=== PATIENT | male | born 1950 | race Caucasian/White ===

== ENCOUNTER → 2020-09-17 09:13 | Outpatient (CLI) | payer MEDICARE, SELFPAY ==
--- NOTE | ~2020-09-17 | MR_ITS ---
EXAMINATION: MR lumbar spine wo con EXAM DATE: 09/17/2020 10:11 INDICATION: RLE pain lbp right leg pain to foot w/ toe numbness x8mos, no trauma . Low back pain. TECHNIQUE: Multi-sequential, multiplanar MR images of the lumbar spine were obtained without contrast . Sagittal T1, T2, T2 fat saturation images. Axial T2 weighted images. There is no prior study for comparison. FINDINGS: Bilateral fluid signal intensity renal lesions, imaged portions are consistent with cysts. The conus medullaris terminates at the T12-L1 level and has normal signal intensity and morphology. Mild to moderate disc disease L2-L5, mild at the other lumbar levels. The vertebral bodies are aligne d in the AP dimension. There are no suspicious marrow signal abnormalities. Paraspinal soft tissue is unremarkable. Level by level evaluation: T12-L1: There is a mild diffuse disc bulge superimposed tiny right central extrusion, inferior migrat ion Facet arthropathy: Mild. Neural foraminal stenosis: No stenosis. Central canal stenosis: Minimal. L1-L2: There is a mild diffuse disc bulge. Facet arthropathy: Mild to moderate. Neural foraminal stenosis: Mild right. Central canal stenosis: No stenosis. L2-L3: There is a mild to moderate diffuse disc bulge. Facet arthropathy: Moderate to severe. Ligamentum flavum enlargement. Neural foraminal stenosis: Mild to moderate bilateral. Central canal stenosis: Mild to moderate. L3-L4: There is a moderate diffuse disc bulge. Facet arthropathy: Moderate to severe . Ligamentum flavum enlargement . Neural foraminal stenosis: Moderate right, mild to moderate left. Central canal stenosis: Moderate. L4-L5: There is a moderate diffuse disc bulge. Facet arthropathy: Severe . Ligamentum flavum enlargement . Neural foraminal stenosis: Moderate bilateral. Central canal stenosis: Severe. L5-S1: There is a mild to moderate diffuse disc bulge. Facet arthropathy: Severe. Neural foraminal stenosis: Mild to moderate bilateral. Central canal stenosis: Mild to moderate. IMPRESSION: 1. L4-5 severe central canal stenosis. 2. Less spondylosis other levels. Reviewed, dictated and finalized at location A.
== END ==
PROVIDERS: PCP Family Medicine Adolescent Medicine
DX: M48.062 Spinal stenosis, lumbar region with neurogenic claudication (principal); M47.816 Spondylosis without myelopathy or radiculopathy, lumbar region
CPT/HCPCS: 72148

== ENCOUNTER 2021-04-16 04:50 | Observation (INO) | payer MEDICARE, SELFPAY ==
[2021-04-16] VITALS (24 sets, daily range): BP systolic 131–157; BP diastolic 57–89; PULSE 53–86; RESP 14–25; TEMP 35.9–36.7; O2SAT 94–100; BMI 34.7
--- NOTE | ~2021-04-16 | CT_ITS ---
EXAMINATION: CTA chest PE protocol DATE: 04/16/2021 14:08 CHEMIC MANGLER INDICATION: TECHNIQUE: Computed tomographic angiography (CTA) of the chest was performed with 100 mL Omnipaque-35 0 intravenous contrast. The dose-length product was 1163.27 mGy-cm. Maximum intensity projection 3D-r econstructions of the aorta and other arteries were constructed by the technologist on a separate wor kstation. COMPARISON: None. FINDINGS: Study is mildly limited due to motion artifact and contrast bolus timing. There are filling defects in left upper lobe segmental and subsegmental pulmonary arteries which may represent flow ar tifact or small areas of pulmonary embolism, small thrombus burden. Pulmonary arteries are enlarged c onsistent with pulmonary hypertension. No thoracic lymphadenopathy. No significant pleural or pericar dial effusion. There is bibasilar dependent atelectasis. No thoracic lymphadenopathy. No endobronchia l lesions. IMPRESSION: 1. Filling defects in left upper lobe segmental and subsegmental pulmonary arteries which may represe nt flow artifact or areas of pulmonary embolism, small thrombus burden. Reviewed, dictated and finalized at location A. IC MANGLER IMPRESSION: 1. Filling defects in left upper lobe segmental and subsegmental pulmonary bipin meredith which may represent flow artifact or areas of pulmonary embolism, small th rombus burden.
--- NOTE | ~2021-04-16 | XR_ITS ---
XR chest 1V portable 04/16/2021 05:47 Indication: Chest pain Procedure: AP portable chest Comparison: 08/25/2018 Findings: Left basilar atelectasis/scarring unchanged. Cardiomegaly. No focal pneumonia, edema, signi ficant effusion or pneumothorax. Impression: 1: No acute cardiopulmonary disease. Reviewed, dictated and finalized at location A. IO ENGINEER Impression: 1: No acute cardiopulmonary disease.
--- NOTE | ~2021-04-16 | US_ITS ---
EXAMINATION: US venous doppler [facility] DATE: 04/16/2021 14:56 INDICATION: Shortness of breath and lower limb swelling TECHNIQUE: Grayscale ultrasound images without and with compression and Doppler ultrasound images of the bilateral lower extremity veins were obtained. COMPARISON: None. FINDINGS: The visualized portions of right common femoral vein, profunda (deep) femoral vein, femoral vein, pop liteal vein, posterior tibial veins, peroneal veins, gastrocnemius vein and greater saphenous vein ou tflow are patent. Small Rizvi's cyst at the right popliteal fossa The visualized portions of left common femoral vein, profunda femoral vein, femoral vein, popliteal v ein, posterior tibial veins, peroneal veins, gastrocnemius vein and greater saphenous vein outflow ar e patent. IMPRESSION: 1. No deep venous thrombosis in either lower limb. 2. Small right Rizvi's cyst. Reviewed, dictated and finalized at location A. CULTURAL EQUIPMENT SALESPERSON
--- NOTE | 2021-04-16 04:53 | ECG_ITS ---
Measurements Intervals [place] Rate: 65 P: 25 [place]: 211 QRS: 4 QRSD: 130 T: 90 QT: 406 QTc: 424 Interpretive Statements SINUS RHYTHM WITH FIRST DEGREE AV BLOCK ATRIAL AND VENTRICULAR PREMATURE COMPLEXES INTRAVENTRICULAR CONDUCTION DELAY LEFT VENTRICULAR HYPERTROPHY WITH ST-T CHANGE BORDERLINE R WAVE PROGRESSION, ANTERIOR LEADS INFERIOR INFARCT, AGE INDETERMINATE ST-T WAVE ABNORMALITY IN HIGH LATERAL LEADS- CONSIDER ISCHEMIA ABNORMAL ECG Electronically Signed On 04-16-2021 7:54:32 COFFIN MAKER by Alpesh Pollock D.O.
--- NOTE | 2021-04-16 05:05 | ED.CHESTPAIN ---
HPI - Chest Pain General Chief Complaint: Chest Pain Stated Complaint: chest pain Time Seen by Provider: 04/16/21 04:52 History of Present Illness HPI narrative: Patient is a 70-year-old male who presents the ER with chest pain. Began at 1 AM. Pain is varying between sharp and aching. Left center chest that radiates to left arm. Worse with exertion. Better with rest. No sweats. Has history of previous NE but did not feel like this. He had an angioplasty 1998 and multiple stents a couple years later. 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 Related Data Home Medications Medication Instructions Recorded Confirmed allopurinol 300 mg PO DAILY PRN 04/16/21 amlodipine 5 mg PO DAILY 04/16/21 aspirin [Adult Low Dose Aspirin] 81 mg PO DAILY 04/16/21 fosinopril 40 mg PO DAILY 04/16/21 hydrochlorothiazide 25 mg PO DAILY 04/16/21 meloxicam 15 mg PO DAILY PRN 04/16/21 metformin 500 mg PO BID 04/16/21 nebivolol [Bystolic] 20 mg PO DAILY 04/16/21 pantoprazole 40 mg PO HS 04/16/21 04/16/21 Allergies Allergy/AdvReac Type Severity Reaction Status Date / Time No Known Allergies Allergy Verified 04/16/21 05:11 Review of Systems Review of Systems: All systems reviewed & are unremarkable except as noted in HPI and below Constitutional: Constitutional: Denies chills, Denies fever(s) and Denies weakness ENT: Denies nasal congestion and Denies sore throat Cardiovascular: Cardiovascular: Reports chest pain, Denies rapid heart rate and Reports radiating jaw, neck or arm pain Respiratory: Respiratory: Denies cough, Denies dyspnea and Denies wheezing Gastrointestinal: Gastrointestinal: Denies abdominal pain, Denies diarrhea, Denies nausea and Denies vomiting Musculoskeletal: Musculoskeletal: Denies back pain and Denies muscle cramps [facility] Past Medical History Medical History (Updated 04/16/21 @ 06:46 by Troy Gonzáles MD) Coronary artery disease GERD (gastroesophageal reflux disease) Hyperlipidemia Hypertension Prediabetes Surgical History Surgical History (Updated 04/16/21 @ 05:45 by Troy Gonzáles MD) History of percutaneous coronary intervention Social History Social History (Updated 04/16/21 @ 05:50 by Troy Gonzáles MD) Smoking status: Former smoker Exam Narrative: GENERAL: Well-appearing, Obese, and in no acute distress. HEAD: Normocephalic, atraumatic. ENT: Mucous membranes moist. NECK: Supple. CHEST: Clear to auscultation. No respiratory distress. HEART: Regular rate and rhythm. Normal peripheral pulses. ABDOMEN: Soft, nontender, nondistended. EXTREMITIES: Normal range of motion. No edema. SKIN: Warm, dry, no rash. NEURO: No focal deficits. Alert and oriented x3. PSYCH: Normal mood and affect. Course Reevaluation(s) Reevaluation #1: STEMI activated at 0505. Dr. Bermudez has been contacted and we have discussed the case. He is reviewed the EKG and feels the ST segment changes in leads III/aVF/aVL represent old infarct. Does feel patient will need a cardiac catheterization but does not need to go emergently. He would like patient to have oral aspirin as well as Brilinta and IV heparin. She would like for the patient to have a right-sided EKG performed. He would also like the patient to have some Nitropaste. Date: 04/16/21 Time: 05:15 Vital Signs Vital signs: Vital Signs Temperature 97.2 F L 04/16/21 04:55 Pulse Rate 56 L 04/16/21 04:55 Respiratory Rate 22 H 04/16/21 04:55 Blood Pressure 145/66 H 04/16/21 04:55 Pulse Oximetry 97 04/16/21 04:55 Temperature 97.2 F L 04/16/21 04:55 Pulse Rate 57 L 04/16/21 06:30 Respiratory Rate 20 04/16/21 06:30 Blood Pressure 149/73 H 04/16/21 06:30 Pulse Oximetry 97 04/16/21 06:30 MDM - Chest Pain Lab Data Result diagrams: 04/16/21 05:31 04/16/21 05:31 Labs: Lab Results 04/16/21 04/16/21 04/16/21 Range/Units 05:31 05:31 05:31 WBC 11.0 H (4.5-10.0) K/mm3 RBC 4.6
--- NOTE | 2021-04-16 05:16 | PC.NURSE ---
STEMI alert activated at 05:05. STEMI alert cancelled at 05:12 after with Cardiology consult with EDP. See STEMI form for paper documentation during alert.
[2021-04-16] MEDS: TICAGRELOR 90 MG TABLET 180 MG (05:19)
[2021-04-16] MEDS: SODIUM CHLORIDE 0.9% IV 1,000 ML 999 ML (05:19)
--- NOTE | 2021-04-16 05:24 | ECG_ITS ---
Measurements Intervals [place] Rate: 56 P: 47 [place]: 218 QRS: 8 QRSD: 133 T: 97 QT: 394 QTc: 383 Interpretive Statements SINUS BRADYCARDIA WITH FIRST DEGREE AV BLOCK WITH MARKED RHYTHM IRREGULARITY, POSSIBLE NON-CONDUCTED PAC, SA BLOCK, AV BLOCK OR PAUSE INTRAVENTRICULAR CONDUCTION DELAY LEFT VENTRICULAR HYPERTROPHY WITH ST-T CHANGE ANTEROLATERAL INFARCT, AGE INDETERMINATE INFERIOR INFARCT, AGE INDETERMINATE BASELINE ARTIFACT- I, II, III, AVR, AVL, V1-V2 ABNORMAL ECG Electronically Signed On 04-16-2021 7:56:05 [employer] LIVESTOCK FARM MANAGER by Alpesh Pollock D.O.
[2021-04-16 05:44] LABS: Basophils Absolute Auto 0.1 K/mm3 (0.0-0.1); Basophils Percent Auto 0.5 % (0.2-1.2); Eosinophils Absolute Auto 0.1 K/mm3 (0-0.3); Eosinophils Percent Auto 1.1 % (0-4.4); Hematocrit 43.2 % (42.0-52.0); Immature Granulocyte Absolute 0.04 K/mm3 (0.00-0.031); Immature Granulocyte Percent A 0.4 % (0-0.5); Lymphocytes Absolute Auto 0.91 K/mm3 (0.9-3.2); Lymphocytes Percent Auto 8.3 % (18.3-44.2); Mean Corpuscular HGB Conc 32.4 g/dl (32-36); Mean Corpuscular Hemoglobin 29.9 pg (26-34); Mean Corpuscular Volume 92.3 fl (80-100); Mean Platelet Volume 10.6 fl (7.4-10.4); Monocytes Absolute Auto 0.9 K/mm3 (0.1-0.6); Monocytes Percent Auto 8.4 % (2.6-8.5); Neutrophils Absolute Auto 8.9 K/mm3 (1.3-6.7); Neutrophils Percent Auto 81.3 % (45.5-73.1); Platelet Count Result 183 k/mm3 (150-375); Red Blood Count 4.68 M/mm3 (4.6-6.20); Red Cell Distribution Width 14.1 % (11.5-14.5)
[2021-04-16 05:55] LABS: Alanine Aminotransferase 24 U/L (4-50); Albumin Level 4.3 g/dL (3.5-5.1); Alkaline Phosphatase 50 U/L (38-126); Anion Gap 10 mmol/L (8-16); Aspartate Amino Transferase 31 U/L (17-59); Bilirubin,Total 0.4 mg/dL (0.2-1.3); Blood Urea Nitrogen 18 mg/dL (9-20); Calcium 9.3 mg/dL (8.4-10.2); Carbon Dioxide 27 mmol/L (22-30); Chloride 104 mmol/L (98-107); Cholesterol 121 mg/dL (0-200); Estimated CRCL calculation 91 ml/min; Estimated Glomerular Filt Rate > 60; Glucose 154 mg/dL (65-110); HDL Direct 35 mg/dL; Potassium 3.6 mmol/L (3.4-5.0); Sodium 141 mmol/L (137-145); Triglycerides 108 mg/dL (<150)
[2021-04-16 05:56] LABS: INR 1.1; Prothrombin Time 13.6 Seconds (11.1-14.7)
[2021-04-16 06:06] LABS: LDL Cholesterol Direct 66 mg/dL
[2021-04-16 06:08] LABS: Troponin I 0.017 ng/mL (0.000-0.034)
[2021-04-16] MEDS: HEPARIN SOD/D5W 100 UNITS/ML 25,000 UNITS/250 ML BAG 10 UNITS IV CONT (06:15)
--- NOTE | 2021-04-16 07:10 | PC.NURSE ---
Report taken from BREE Simmons.
[2021-04-16] MEDS: MORPHINE SULFATE (*CRX) 4 MG/ML INJ IV PUSH (08:17)
--- NOTE | 2021-04-16 09:13 | ADMGEN ---
This patient, Deric Buck, was admitted to IMU Room 200-01. Patient/family oriented to hospital policies and general routines including ID bracelet, bed and alarms, visiting hours, pain management, procedures, bathroom and other care routines, personal items, smoking policy, room service/diet, and visiting hours. Information on how to activate the Rapid Response Team has been discussed. Patient/Family are encouraged to report perceived risks to care and to ask questions if they do not understand what they are told or what they should do.
[2021-04-16 09:45] LABS: Troponin I 0.019 ng/mL (0.000-0.034)
--- NOTE | 2021-04-16 10:12 | PM.IMHP ---
H&P: HPI History of Present Illness Date/Time: 04/16/21 10:12 Chief Complaint: Chest pain Narrative: 70 to years old male with history of coronary artery disease, hypertension, [id number] diabetes and multiple stent placement in the past was admitted through the emergency room with complaints of having chest pain going on for the last few hours. Pain started at home while walking, it was in the left side of the chest dull in nature and non radiating. Patient pain did not get better so he decided come to the emergency room. In the emergency room patient was started on IV heparin with some relief in chest pain. No shortness of breath. No abdominal pain, nausea, vomiting. No fever. Review of Systems Review of Systems: All systems reviewed & are unremarkable except as noted in HPI and below (the history and physical examination.) [facility] Past Medical History Medical History (Updated 04/16/21 @ 10:17 by Des Diallo MD) Coronary artery disease GERD (gastroesophageal reflux disease) Hyperlipidemia Hypertension Prediabetes Surgical History Surgical History History of percutaneous coronary intervention Social History Social History Smoking packs per day: 1.5 Smoking cigarettes per day: 30.0 Years smoked: 44 Smoking pack-years: 66.00 Smoking status: Former smoker Smokeless tobacco user: chewing tobacco Alcohol intake: current Drinks per week: 14 Substance use: current Substance use type: marijuana Other substance usage details: marijuana gummy Last use: 04/14/21 Spiritual care concerns: No Meds Home Medications and Allergies Home Medications Medication Instructions Recorded Confirmed Type allopurinol 300 mg PO DAILY PRN 04/16/21 04/16/21 History amlodipine 5 mg PO DAILY 04/16/21 04/16/21 History aspirin [Adult Low Dose Aspirin] 81 mg PO DAILY 04/16/21 04/16/21 History fosinopril 40 mg PO DAILY 04/16/21 04/16/21 History hydrochlorothiazide 25 mg PO DAILY 04/16/21 04/16/21 History meloxicam 15 mg PO DAILY PRN 04/16/21 04/16/21 History metformin 500 mg PO BID 04/16/21 04/16/21 History nebivolol [Bystolic] 20 mg PO DAILY 04/16/21 04/16/21 History pantoprazole 40 mg PO HS 04/16/21 04/16/21 History Allergies Allergy/AdvReac Type Severity Reaction Status Date / Time No Known Allergies Allergy Verified 04/16/21 09:26 Vital Signs Vital Signs - 24 hr 04/16/21 04:55 04/16/21 05:14 04/16/21 05:15 Temperature 36.2 C L Pulse Rate 56 L 65 Respiratory Rate 22 H 18 Blood Pressure 145/66 H 153/78 H Pulse Oximetry 97 96 98 04/16/21 06:30 04/16/21 07:00 04/16/21 07:01 Temperature Pulse Rate 57 L 64 64 Respiratory Rate 20 21 H 24 H Blood Pressure 149/73 H 156/68 H Pulse Oximetry 97 97 04/16/21 07:09 04/16/21 07:15 04/16/21 07:30 Temperature Pulse Rate 53 L 66 67 Respiratory Rate 16 18 Blood Pressure 156/68 H Pulse Oximetry 98 99 97 04/16/21 07:34 04/16/21 07:45 04/16/21 08:00 Temperature Pulse Rate 83 65 66 Respiratory Rate 23 H 25 H Blood Pressure 157/76 H Pulse Oximetry 97 97 97 04/16/21 08:16 04/16/21 08:30 04/16/21 09:10 Temperature Pulse Rate 86 63 Respiratory Rate 18 16 Blood Pressure 144/89 H Pulse Oximetry 98 95 95 04/16/21 09:58 Temperature 36.7 C Pulse Rate 65 Respiratory Rate 14 Blood Pressure 153/75 H Pulse Oximetry 97 Exam Narrative: GENERAL: Well-appearing, Obese, and in no acute distress. HEAD: Normocephalic, atraumatic. ENT: Mucous membranes moist. NECK: Supple. CHEST: Clear to auscultation. No respiratory distress. HEART: Regular rate and rhythm. Normal peripheral pulses. ABDOMEN: Soft, nontender, nondistended. EXTREMITIES: Normal range of motion. No edema. SKIN: Warm, dry, no rash. NEURO: No focal deficits. Alert and oriented x3. PSYCH: Normal mood and affect. H&P: Results Labs
[2021-04-16 10:27] LABS: SARS-CoV-2 RNA PCR Negative
[2021-04-16 11:17] LABS: Partial Thromboplastin Time 39.8 SECONDS (22.3-36.8)
[2021-04-16 11:30] LABS: Troponin I 0.016 ng/mL (0.000-0.034)
[2021-04-16 12:17] LABS: Glucose Point of Care 120 mg/dl (65-105)
[2021-04-16] MEDS: HEPARIN SODIUM 5,000 UNITS/ML VIAL 4000 UNITS IV PUSH (12:18)
--- NOTE | 2021-04-16 12:30 | PM.CNCAR ---
Assessment and Plan Assessment and plan (1) Chest pain: Code(s): R07.9 - Chest pain, unspecified Status: Acute Assessment and Plan: His chest pain is a bit vague to me. He describes the symptoms as predominantly worse with breathing. In my opinion, it sounds more pleuritic in nature associated with shortness of breath rather than anginal albeit not completely excluded to this point. He admits he has not been very active as of weight since his surgery. He also does not have a lot of energy whenever he tries to do things and he is short of breath with activity. Will order CT scan of his chest with PE protocol. Will also order bilateral lower extremity venous Dopplers as he does have lower extremity swelling also. (2) CAD (coronary artery disease): Code(s): I25.10 - Atherosclerotic heart disease of [place] coronary artery without angina pectoris Status: Acute Assessment and Plan: Does have chest pain but is chest pain is atypical. He is ruled out for myocardial infarction. EKG shows no significant changes from previous. Heparin drip per protocol to be initiated. A 2D echocardiogram with Doppler will also be ordered and reviewed. Continue aspirin 81 mg p.o. daily, fosinopril 40 mg daily, hydrochlorothiazide 25 mg p.o. daily and nebivolol 20 mg daily. Continue on the results of the CT scan, further ischemic workup to be considered. (3) Hypertension associated with diabetes: Code(s): E11.59 - Type 2 diabetes mellitus with other circulatory complications; I15.2 - Hypertension secondary to endocrine disorders Status: Acute Assessment and Plan: Continue above medications (4) Hyperlipidemia associated with type 2 diabetes mellitus: Code(s): E11.69 - Type 2 diabetes mellitus with other specified complication; E78.5 - Hyperlipidemia, unspecified Status: Acute Assessment and Plan: Will start rosuvastatin 40 mg daily (5) Former tobacco use: Code(s): Z87.891 - Personal history of nicotine dependence Status: Acute History of Present Illness History of Present Illness Consult date/time: 04/16/21 12:30 Requesting physician: Troy Gonzáles MD Consult reason: chest pain Reason For Visit: chest pain Narrative: Date of service 04/16/2021: Reason consultation: Chest pain Requesting provider: Dr. Gonzáles History: Patient is 70-year-old male who is a patient of mine who has a remote history of inferior myocardial infarction with stenting to the PDA. Repeat stenting to the RCA was performed in 2005.. Echocardiogram in 2019 showed inferolateral wall motion abnormalities. EF 60-65%. No significant valvular problems. Occasional PVCs were noted. Came to hospital this morning because of chest pain. Patient woke up to go the bathroom and noticed some pain in his left shoulder area. He also had some pain into the back as well as some anterior chest pain. He has difficulty describing it but the pain in the back was more sharp. The anterior chest pain is more doll. Symptoms and pain in particular are worse by breathing. He also feels like he is short of breath and then has to take some deep breaths in order to catch at. He did become concerned though as his symptoms persisted throughout the night. He woke up and did take a nitroglycerin tablet which did not resolve his symptoms. His nitroglycerin though may have been old. He has no exertional symptoms at present nor does he states that his symptoms are worsened last night by walking around. He does feel some dizziness upon standing at times. He has no palpitations, syncope, paroxysmal nocturnal dyspnea, orthopnea or unusual edema. He came to the hospital and his EKG shows inferior infarction which is old and some ST abnormalities likely from old infarction. Troponins are negative x3. He also has anterolateral Q-waves consistent with [place] also. At present, he is on a heparin drip and is still having some a shortness
[2021-04-16 16:38] LABS: Glucose Point of Care 132 mg/dl (65-105)
[2021-04-16 17:54] LABS: Partial Thromboplastin Time 69.2 SECONDS (22.3-36.8)
[2021-04-16] MEDS: HEPARIN SODIUM 5,000 UNITS/ML VIAL 3500 UNITS IV PUSH (18:54)
[2021-04-16] MEDS: PANTOPRAZOLE 40 MG TABLET PO (20:20)
[2021-04-16 20:39] LABS: Glucose Point of Care 157 mg/dl (65-105)
[2021-04-17] VITALS (10 sets, daily range): BP systolic 120–143; BP diastolic 64–72; PULSE 52–68; RESP 18–20; TEMP 36.4–36.5; O2SAT 93–100
--- NOTE | 2021-04-17 | ECHO_ITS ---
Patient Info Name: Deric Buck Age: 70 years : 1950 Gender: Male Ht: 70 in Wt: 245 lbs BSA: 2.38 m2 HR: 60 bpm BP: 143 / 71 mmHg Heart Rhythm: Sinus Rhythm Technical Quality: Fair Exam Date: 04/17/2021 7:54 AM Exam Location: [facility] Patient Status: Inpatient Admit Date: 04/16/2021 Staff Ordering Physician: Royce Faith MD Store Director: Roxie Feng RDCS Attending Provider: Jerri Perez DO Referring Physician: Marcell JACOBSON; Exam Type: CA echo doppler color flow Study Info Indications - chest pain, sob, cad Complete two-dimensional, color flow and Doppler transthoracic echocardiogram is performed. Summary 1. Complete two-dimensional, color flow and Doppler transthoracic echocardiogram is performed. 2. Left ventricular systolic function is mildly reduced, estimated at 45-50%. 3. The left ventricular diastolic function is grade I diastolic dysfunction. 4. The infero posterior segments appear hypodynamic. 5. Left atrial chamber dimension is moderately enlarged. 6. The aortic valve is normal. 7. The mitral valve has normal leaflets. Left Ventricle Left ventricular chamber dimension is normal. Left ventricular systolic function is mildly reduced, estimated at 45-50%. The left ventricular diastolic function is grade I diastolic dysfunction. The infero posterior segments appear hypodynamic. Right Ventricle Right ventricular chamber dimension is normal. Right ventricular systolic function is normal. Left Atria Left atrial chamber dimension is moderately enlarged. Right Atria Right atrial chamber dimension is normal. Aortic Valve The aortic valve is normal. Pulmonic Valve The pulmonic valve is not well visualized. Mitral Valve The mitral valve has normal leaflets. Tricuspid Valve The tricuspid valve leaflets are normal. There is trace tricuspid valve regurgitation. Pericardium/Pleural The pericardium appears normal. Aorta The aortic root size at the sinus of Valsalva is normal. Left Ventricular Outflow Tract Name Value Normal LVOT 2D LVOT Diameter 2.1 cm LVOT Doppler LVOT Peak Gradient 4 mmHg LVOT Mean Gradient 2 mmHg LVOT VTI 19 cm LVOT VTI/AV VTI Ratio 0.6 LVOT Stroke Volume 67 ml LVOT CO 3.9 l/min LVOT CI 1.6 l/min/m2 Pulmonic Valve Name Value Normal RVOT Doppler RVOT Peak Gradient 3 mmHg PV Doppler PV Peak Gradient 6 mmHg Mitral Valve Name
[2021-04-17] MEDS: HEPARIN SOD/D5W 100 UNITS/ML 25,000 UNITS/250 ML BAG 16 UNITS IV CONT (01:01)
[2021-04-17 01:12] LABS: Partial Thromboplastin Time 96.5 SECONDS (22.3-36.8)
[2021-04-17 07:24] LABS: Basophils Percent Auto 0.2 % (0.2-1.2); Eosinophils Percent Auto 0.4 % (0-4.4); Hematocrit 39.8 % (42.0-52.0); Hemoglobin 13.2 g/dL (14.0-18.0); Immature Granulocyte Absolute 0.05 K/mm3 (0.00-0.031); Immature Granulocyte Percent A 0.5 % (0-0.5); Lymphocytes Absolute Auto 1.01 K/mm3 (0.9-3.2); Lymphocytes Percent Auto 10.7 % (18.3-44.2); Mean Corpuscular HGB Conc 33.2 g/dl (32-36); Mean Corpuscular Hemoglobin 30.1 pg (26-34); Mean Corpuscular Volume 90.9 fl (80-100); Mean Platelet Volume 10.3 fl (7.4-10.4); Monocytes Absolute Auto 1.1 K/mm3 (0.1-0.6); Monocytes Percent Auto 11.2 % (2.6-8.5); Neutrophils Absolute Auto 7.3 K/mm3 (1.3-6.7); Platelet Count Result 165 k/mm3 (150-375); Red Blood Count 4.38 M/mm3 (4.6-6.20); Red Cell Distribution Width 14.5 % (11.5-14.5); White Blood Count 9.5 K/mm3 (4.5-10.0)
[2021-04-17 07:35] LABS: Cholesterol 116 mg/dL (0-200); HDL Direct 36 mg/dL; Triglycerides 81 mg/dL (<150)
[2021-04-17 07:43] LABS: Partial Thromboplastin Time 74.3 SECONDS (22.3-36.8)
[2021-04-17 07:45] LABS: LDL Cholesterol Direct 59 mg/dL
[2021-04-17 07:48] LABS: Troponin I 0.029 ng/mL (0.000-0.034)
[2021-04-17 08:02] LABS: Hemoglobin A1C 6.1 % (<5.7)
[2021-04-17] MEDS: NEBIVOLOL HCL 5 MG TABLET 20 MG PO (08:53)
[2021-04-17] MEDS: ROSUVASTATIN 10 MG TABLET 40 MG PO (08:54)
[2021-04-17] MEDS: lisinopriL 20 MG TABLET 40 MG PO (08:54)
[2021-04-17] MEDS: ASPIRIN 81 MG ENTERIC TABLET PO (08:54)
[2021-04-17] MEDS: hydroCHLOROthiazide 25 MG TABLET PO (08:55)
[2021-04-17] MEDS: amLODIPine BESYLATE 5 MG TABLET PO (08:55)
[2021-04-17 09:24] LABS: Glucose Point of Care 144 mg/dl (65-105)
--- NOTE | 2021-04-17 11:27 | PM.PNCARD ---
Progress Note: A&P Assessment and Plan (1) Chest pain: Code(s): R07.9 - Chest pain, unspecified Status: Acute Assessment and Plan: Chest pain he was describing seemed mostly pleuritic in nature. He was found to have a sub segmental pulmonary pulmonary embolism. He was started on heparin, can transition to DOAC. Generally not experiencing any chest pain but does say that if he breathes very deeply he does have some discomfort. (2) CAD (coronary artery disease): Code(s): I25.10 - Atherosclerotic heart disease of [place] coronary artery without angina pectoris Status: Acute Assessment and Plan: Does have chest pain but is chest pain is atypical. He is ruled out for myocardial infarction. EKG shows no significant changes from previous. Heparin drip per protocol to be initiated. A 2D echocardiogram with Doppler will also be ordered and reviewed. Continue aspirin 81 mg p.o. daily, fosinopril 40 mg daily, hydrochlorothiazide 25 mg p.o. daily and nebivolol 20 mg daily. No indication for ischemic workup at this point in time. Can be considered if he develops recurrent chest pain. (3) Hypertension associated with diabetes: Code(s): E11.59 - Type 2 diabetes mellitus with other circulatory complications; I15.2 - Hypertension secondary to endocrine disorders Status: Acute Assessment and Plan: Continue above medications (4) Hyperlipidemia associated with type 2 diabetes mellitus: Code(s): E11.69 - Type 2 diabetes mellitus with other specified complication; E78.5 - Hyperlipidemia, unspecified Status: Acute Assessment and Plan: On a statin (5) Former tobacco use: Code(s): Z87.891 - Personal history of nicotine dependence Status: Acute Subjective Date/time seen: 04/17/21 11:27 cardiology follow-up for chest pain Patient is feeling better today. Denies any shortness of breath or chest pain. Review of Systems Review of Systems: All systems reviewed & are unremarkable except as noted in HPI and below Constitutional: Constitutional: Denies excessive sweating, Denies headache(s) and Denies weakness Eyes: Eyes: Denies blurry vision ENT: Reports Normal hearing present, Denies headache(s) and Denies neck pain Cardiovascular: Cardiovascular: Reports chest pain, Reports leg edema and Reports dyspnea Respiratory: Respiratory: Reports dyspnea Gastrointestinal: Gastrointestinal: Denies abdominal pain Genitourinary: Genitourinary: Denies dysuria Musculoskeletal: Musculoskeletal: Denies back pain and Denies neck pain Integumentary/Breasts: Skin/Breast: Denies dry skin Neurologic: Reports Normal hearing present, Denies confusion, Denies headache(s) and Denies weakness Psychiatric: Psychiatric: Denies anxiety and Denies confusion Endocrine: Endocrine: Denies excessive sweating Hematologic/Lymphatic: Hematologic/Lymphatic: Denies easy bleeding Allergic/Immunologic: Allergic/Immunologic: Denies GI upset with certain foods Exam Narrative: Patient is awake alert oriented. He is comfortable. Const: General: no acute distress and uncomfortable; No confusion Orientation/consciousness: No confusion HENMT: General nose exam: Normal nares present Eyes: Sclera: sclerae normal Neck: Neck: supple and no JVD Chest: Other: No reproducible chest wall pain to palpation Resp: Auscultation: clear to auscultation bilaterally Cardio: Rate: regular rate Rhythm: regular rhythm GI: Auscultation: normal bowel sounds Skin: General skin exam: normal color Neuro: General: No confusion Cranial nerves: Yes Normal hearing present Cognition (Neuro): normal cognition Speech: normal speech Extrem: General: edema (Mild bilateral lower extremity edema right leg greater than left) Psych: Mental Status: mental status grossly normal Objective Data Vital Signs Vital Signs: Vital Signs - 24 hr 04/16/21 12:00 04/16/21 13:45 04/16/21 16:00 Temperature
[2021-04-17 12:41] LABS: Glucose Point of Care 137 mg/dl (65-105)
--- NOTE | 2021-04-17 15:01 | PM.DS ---
DS: Admitting Diagnosis Discharge Date 04/17/2021 Admitting Diagnosis chest pain DS: Discharge Diagnosis Discharge Diagnosis (1) Chest pain: Code(s): R07.9 - Chest pain, unspecified Status: Resolved (2) CAD (coronary artery disease): Code(s): I25.10 - Atherosclerotic heart disease of [place] coronary artery without angina pectoris Status: Acute (3) Type 2 diabetes mellitus: Code(s): E11.9 - Type 2 diabetes mellitus without complications Status: Acute (4) Hypertension: Code(s): I10 - Essential (primary) hypertension Status: Acute (5) Hyperlipidemia: Code(s): E78.5 - Hyperlipidemia, unspecified Status: Deleted DS: Summary Hospital Course Reason for hospitalization: Chief Complaint: Chest pain Narrative: 70 to years old male with history of coronary artery disease, hypertension, [id number] diabetes and multiple stent placement in the past was admitted through the emergency room with complaints of having chest pain going on for the last few hours. Pain started at home while walking, it was in the left side of the chest dull in nature and non radiating. Patient pain did not get better so he decided come to the emergency room. In the emergency room patient was started on IV heparin with some relief in chest pain. No shortness of breath. No abdominal pain, nausea, vomiting. No fever. Hospital Course: patient presented with a chest is found to have a subsegmental pulmonary emboli initially patient was started on heparin, to further evaluate patient had a cardiac echo showed mild to moderate recent systolic dysfunction with ejection fraction of 45% and grade 1 diastolic dysfunction, right ventricle, essentially normal, will discharge the patient on Xarelto, patient will follow-up with primary care as soon as possible Status at Discharge Cognitive/behavioral status at discharge: Time Spent with Patient Time attestation: Total time spent providing and/or coordinating discharge services: Exam Narrative: Patient is comfortable, NAD HEENT: eyes are clear and none icteric LUNGS:CTA HEART: RR S1S2 ABD: BS+, Soft and nontender Lower extremities: no edema SKIN: nonjaundiced Neuro: grossly intact. DS: Data Data Completed and Pending Labs on day of discharge: Labs from last 24 hours 04/17/21 04/17/21 04/17/21 12:01 08:56 07:07 WBC RBC Hgb Hct MCV MCH MCHC RDW Plt Count MPV Immature Gran % (Auto) Neut % (Auto) Lymph % (Auto) [place] % (Auto) Eos % (Auto) Baso % (Auto) Lymph # (Auto) [place] # (Auto) Eos # (Auto) Baso # (Auto) Abs Immat Gran (auto) Absolute Neuts (auto) Absolute Nucleated RBC Nucleated RBC % APTT 74.3 H POC Capillary Glucose 137 H 144 H Hemoglobin A1c Troponin I Triglycerides Cholesterol LDL Cholesterol Direct HDL Direct 04/17/21 04/17/21 04/17/21 07:07 07:07 07:07 WBC 9.5 RBC 4.38 L Hgb 13.2 L Hct 39.8 L MCV 90.9 MCH 30.1 MCHC 33.2 RDW 14.5 Plt Count 165 MPV 10.3 Immature Gran % (Auto) 0.5 Neut % (Auto) 77.0 H Lymph % (Auto) 10.7 L [place] % (Auto) 11.2 H Eos % (Auto) 0.4 Baso % (Auto) 0.2 Lymph # (Auto) 1.01 [place] # (Auto) 1.1 H Eos # (Auto) 0.0 Baso # (Auto) 0.0 Abs Immat Gran (auto) 0.05 H Absolute Neuts (auto) 7.3 H Absolute Nucleated RBC 0.0 Nucleated RBC % 0.0 APTT POC Capillary Glucose Hemoglobin A1c 6.1 H Troponin I 0.029 Triglycerides 81 Cholesterol 116 LDL Cholesterol Direct 59 HDL Direct 36 04/17/21 04/16/21 04/16/21 00:51 19:44 17:32 WBC RBC Hgb Hct MCV MCH MCHC RDW Plt Count MPV Immature Gran % (Auto) Neut % (Auto) Lymph % (Auto) [place] % (Auto) Eos % (Auto) Baso % (Auto) Lymph # (Auto) [place] # (Auto) Eos # (Auto) Baso # (
--- NOTE | 2021-04-17 17:30 | PC.NURSE ---
1730-discharge information explained to pt and . questions answered. 1735-pt discharged in wheelchair with tech. Pt belongings with pt during discharge.
== END 2021-04-17 17:33 | disposition home or self-care (01) ==
LOC: ANHED 06:46 → ANHIMU 04-17 14:16
PROVIDERS: Internal Medicine; Internal Medicine Cardiovascular Disease; Admitting Provider Internal Medicine; Emergency Provider Emergency Medicine; PCP Family Medicine Adolescent Medicine; Visit Provider Family Medicine
DX: R07.9 Chest pain, unspecified (principal); I25.10 Atherosclerotic heart disease of native coronary artery without angina pectoris; I10 Essential (primary) hypertension; I25.2 Old myocardial infarction; E11.9 Type 2 diabetes mellitus without complications; E78.5 Hyperlipidemia, unspecified; K21.9 Gastro-esophageal reflux disease without esophagitis; M71.21 Synovial cyst of popliteal space [Baker], right knee; R60.0 Localized edema; R06.02 Shortness of breath; Z20.822 Contact with and (suspected) exposure to COVID-19; Z95.5 Presence of coronary angioplasty implant and graft; Z87.891 Personal history of nicotine dependence; Z79.82 Long term (current) use of aspirin; Z79.84 Long term (current) use of oral hypoglycemic drugs
CPT/HCPCS: 36415; 71045; 71275; 80053; 80061; 82948; 83036; 84484; 85025; 85610; 85730; 86850; 86900; 86901; 93005; 93306; 93970; 96361; 96365; 96366; 96375; 99285; A9270; C9803; G0378; J1644; J2270; J7030; Q9967; U0003; U0005

== ENCOUNTER 2021-04-23 20:59 | Emergency (ER) | payer MEDICARE, SELFPAY ==
--- NOTE | ~2021-04-23 | CT_ITS ---
EXAMINATION: CT abdomen pelvis wo/w con DATE: 04/24/2021 01:17 INDICATION: Gross hematuria TECHNIQUE: Computed tomography (CT) of the abdomen and pelvis was performed without and with 130 cc O mnipaque 350 intravenous contrast. The dose-length product was 3019.74 mGy-cm. Automated exposure con trol and iterative reconstruction technique were employed. COMPARISON: CT dated 04/23/2021. FINDINGS: Left lower lobe atelectasis. Heart size normal. No significant pleural or pericardial effus ion. The liver, spleen, pancreas, adrenal glands are unremarkable. There are bilateral renal cysts. There are nonobstructing left renal stones. No significant hydronephrosis. Ureters are normal in course and caliber. Prostate gland is enlarged. Gallbladder is present. There is focal scarring in the right ki dney. Nonobstructive bowel gas pattern. No significant vascular abnormality. No lymphadenopathy. Ther e is a left hip arthroplasty. Moderate lumbar spondylosis. IMPRESSION: 1. No acute abdominal abnormality. 2: Nonobstructing left nephrolithiasis. 3: Enlarged prostate gland. Reviewed, dictated and finalized at location A. COUNTER
--- NOTE | ~2021-04-23 | CT_ITS ---
EXAMINATION: CT abdomen pelvis wo con DATE: 04/23/2021 23:42 INDICATION: Hematuria. TECHNIQUE: Computed tomography (CT) of the abdomen and pelvis was performed without intravenous contr ast. The dose-length product was 1538.27 mGy-cm. Automated exposure control and iterative reconstruct ion technique were employed. COMPARISON: CT dated 09/17/2018. FINDINGS: There is lingular and left lower lobe atelectasis. There is atherosclerosis of the aorta an d coronary arteries. No significant pleural or pericardial effusion. There are multiple bilateral low -density lesions in both kidneys, most likely cysts. There are nonobstructing left renal stones. No h ydronephrosis. The liver, spleen, pancreas, adrenal glands are unremarkable. Prostate is enlarged. Gallbladder is pr esent. There is left inguinal hernia containing fat. There is a left hip arthroplasty. Moderate lumba r spondylosis. Nonobstructive bowel gas pattern. Colonic diverticulosis without evidence for divertic ulitis. IMPRESSION: 1. No acute abdominal abnormality. 2: Nonobstructing left nephrolithiasis. Reviewed, dictated and finalized at location A. AGE MAKER
[2021-04-23 21:00] VITALS: BP 151/67; PULSE 102; RESP 16; TEMP 36.2; O2SAT 98
[2021-04-23 21:30] VITALS: BP 123/76; PULSE 58; RESP 18; TEMP 37.2; O2SAT 95
--- NOTE | 2021-04-23 21:30 | ED.MALEGU ---
HPI - Male Genitourinary General Chief complaint: Urogenital-Male Stated complaint: Hematuria, on blood thinners Time Seen by Provider: 04/23/21 21:08 Source: patient, RN notes reviewed and old records reviewed Mode of arrival: ambulatory Limitations: no limitations History of Present Illness HPI Narrative: This a 70 year old male with history of CAD, stent, recent diagnosis of PE on Xarelto who presents for evaluation of blood in your urine. Patient was started on Xarelto 1 week ago for small PE. His reports she noticed that patient urine was pink on Saturday . Earlier today around 11 am she reports his urine was razo yellow, and patient states around 4 pm his urine was red again. Patient denies abdominal pain, back pain, nausea, vomiting fever or chills. He denies any trauma. Denies previous history of hematuria. Related Data Home Medications Medication Instructions Recorded Confirmed allopurinol 300 mg PO DAILY PRN 04/16/21 04/16/21 amlodipine 5 mg PO DAILY 04/16/21 04/16/21 aspirin 81 mg PO DAILY 04/16/21 04/16/21 fosinopril 40 mg PO DAILY 04/16/21 04/16/21 hydrochlorothiazide 25 mg PO DAILY 04/16/21 04/16/21 meloxicam 15 mg PO DAILY PRN 04/16/21 04/16/21 metformin 500 mg PO BID 04/16/21 04/16/21 nebivolol [Bystolic] 20 mg PO DAILY 04/16/21 04/16/21 pantoprazole 40 mg PO HS 04/16/21 04/16/21 Allergies Allergy/AdvReac Type Severity Reaction Status Date / Time No Known Allergies Allergy Verified 04/16/21 09:26 Review of Systems Review of Systems: All systems reviewed & are unremarkable except as noted in HPI and below PMFSH Past Medical History Medical History Coronary artery disease GERD (gastroesophageal reflux disease) Hyperlipidemia Hypertension Prediabetes Surgical History Surgical History History of percutaneous coronary intervention Family History Family History Father Acute myocardial infarction Social History Social History Smoking packs per day: 1.5 Smoking cigarettes per day: 30.0 Years smoked: 44 Smoking pack-years: 66.00 Smoking status: Former smoker Smokeless tobacco user: chewing tobacco Alcohol intake: current Drinks per week: 14 Substance use: current Substance use type: marijuana Other substance usage details: marijuana gummy Last use: 04/14/21 Spiritual care concerns: No Exam Const: General: no acute distress and alert Eyes: EOM: EOMs intact bilaterally Chest: Chest palpation & inspection: normal inspection of the chest Resp: Effort & Inspection: normal respiratory effort and no retractions Auscultation: clear to auscultation bilaterally Cardio: Rate: regular rate Rhythm: regular rhythm Heart sounds: no murmurs GI: GI Palp: Yes Soft to palpation, No Tenderness to palpation present (GI) and No Guarding due to palpation present (GI) Auscultation: normal bowel sounds Back/Spine/Pelvis: Back: no CVA tenderness Skin: General skin exam: normal color Rashes: no rashes Neuro: General: patient oriented x3 and moves all extremities Cranial nerves: Yes Nystagmus not present Psych: Mental Status: mental status grossly normal Affect: normal affect Course Consultations Consultation #1: Patient has been able to urinate without any difficulty. He is not passing clots. He will need to continue his xarelto. Patient was given return precautions and follow up with urology. Placed on antibiotics. Date: 04/24/21 Time: 02:08 Vital Signs Vital signs: Vital Signs Temperature 97.1 F L 04/23/21 21:00 Pulse Rate 102 H 04/23/21 21:00 Respiratory Rate 16 04/23/21 21:00 Blood Pressure 151/67 H 04/23/21 21:00 Pulse Oximetry 98 04/23/21 21:00 Temperature 98.9 F 04/23/21 21:30 Pulse Rate 50 L
[2021-04-23 21:41] LABS: Basophils Absolute Auto 0.1 K/mm3 (0.0-0.1); Basophils Percent Auto 0.8 % (0.2-1.2); Eosinophils Absolute Auto 0.2 K/mm3 (0-0.3); Eosinophils Percent Auto 2.5 % (0-4.4); Hemoglobin 14.5 g/dL (14.0-18.0); Immature Granulocyte Absolute 0.03 K/mm3 (0.00-0.031); Immature Granulocyte Percent A 0.4 % (0-0.5); Lymphocytes Absolute Auto 1.56 K/mm3 (0.9-3.2); Lymphocytes Percent Auto 19.5 % (18.3-44.2); Mean Corpuscular HGB Conc 32.2 g/dl (32-36); Mean Corpuscular Hemoglobin 30.1 pg (26-34); Mean Corpuscular Volume 93.4 fl (80-100); Mean Platelet Volume 9.8 fl (7.4-10.4); Monocytes Absolute Auto 0.8 K/mm3 (0.1-0.6); Neutrophils Absolute Auto 5.3 K/mm3 (1.3-6.7); Neutrophils Percent Auto 66.8 % (45.5-73.1); Platelet Count Result 274 k/mm3 (150-375); Red Blood Count 4.82 M/mm3 (4.6-6.20); Red Cell Distribution Width 13.6 % (11.5-14.5)
[2021-04-23 21:51] LABS: Alanine Aminotransferase 25 U/L (4-50); Albumin Level 4.6 g/dL (3.5-5.1); Alkaline Phosphatase 49 U/L (38-126); Anion Gap 9 mmol/L (8-16); Aspartate Amino Transferase 30 U/L (17-59); Bilirubin,Total 0.5 mg/dL (0.2-1.3); Blood Urea Nitrogen 19 mg/dL (9-20); Calcium 9.5 mg/dL (8.4-10.2); Carbon Dioxide 29 mmol/L (22-30); Chloride 101 mmol/L (98-107); Estimated Glomerular Filt Rate > 60; Glucose 113 mg/dL (65-110); Partial Thromboplastin Time 48.5 SECONDS (22.3-36.8); Potassium 3.9 mmol/L (3.4-5.0); Sodium 139 mmol/L (137-145)
[2021-04-23 21:58] LABS: Add Urine Microscopic? YES; Appearance Urine Clear (Clear); Bacteria Urine Trace /hpf; Bilirubin Urine Negative (Negative); Blood Urine 2+ (Negative); Color Urine Amber (Yellow); Glucose Urine UA Negative (Negative); Ketones Urine Negative (Negative); Leukocyte Esterase Ur Negative LEU/UL (Negative); Nitrate Urine Negative (Negative); Protein Urine 2+ mg/dL (Negative); RBC Urine 51-75 /hpf (0-2); Specific Grav Ur 1.005 (1.001-1.035); Urobilinogen Urine Negative mg/dL (<2.0)
[2021-04-23 22:49] VITALS: BP 148/77; PULSE 53; RESP 26; O2SAT 98
[2021-04-23 23:01] VITALS: BP 123/72; PULSE 46; RESP 21; O2SAT 93
[2021-04-23 23:16] VITALS: BP 126/72; PULSE 54; RESP 21; O2SAT 95
--- NOTE | 2021-04-23 23:57 | PC.NURSE ---
Handoff received from Aye GIRON. Returned from CT. Patient lying comfortably in ED stretcher. No complaints at this time. AAOX4. Equal and unlabored resp. Skin is warm and dry. IV in place secured and patent. Urine at bedside is red in color. Denies any pain at this time.
[2021-04-24 00:01] VITALS: BP 126/75; PULSE 53; RESP 21; O2SAT 96
[2021-04-24 02:01] VITALS: BP 144/83; PULSE 50; RESP 24; O2SAT 98
== END 2021-04-24 02:25 | disposition home or self-care (01) ==
PROVIDERS: Emergency Provider General Practice; PCP Family Medicine Adolescent Medicine
DX: N30.91 Cystitis, unspecified with hematuria (principal); I25.10 Atherosclerotic heart disease of native coronary artery without angina pectoris; E78.5 Hyperlipidemia, unspecified; I10 Essential (primary) hypertension; R73.03 Prediabetes; K21.9 Gastro-esophageal reflux disease without esophagitis; Z95.5 Presence of coronary angioplasty implant and graft; Z86.711 Personal history of pulmonary embolism; Z87.891 Personal history of nicotine dependence; Z79.01 Long term (current) use of anticoagulants; Z79.82 Long term (current) use of aspirin; N20.0 Calculus of kidney; N40.0 Benign prostatic hyperplasia without lower urinary tract symptoms
CPT/HCPCS: 36415; 74176; 74178; 80053; 81001; 85025; 85610; 85730; 87086; 99284; Q9967

== ENCOUNTER → 2021-09-12 14:26 | Outpatient (CLI) | payer MEDICARE, SELFPAY ==
--- NOTE | ~2021-09-12 | XR_ITS ---
XR lumbar spine 2-3V DATE: 09/12/2021 15:36 INDICATION: Right sciatica TECHNIQUE: Standing neutral, flexion and extension views COMPARISON: 09/12/2021 MR lumbar spine FINDINGS: Diffuse osteopenia. Degenerative spurring throughout the lower thoracic spine. There is degenerative disc disease throughout the lumbar spine, most prominent at L1-2 where there is severe loss of disc space height and prominent degenerative spurring. There is moderately prominent degenerative disc disease and mild retrolisthesis at L2-3. Mild to mode rate degenerative disc disease at L3-4. Moderately prominent degenerative disc disease at L4-5 and L5-S1. There is degenerative change at the apophyseal joints with associated minimal grade 1 anterolisthesis at L4-5. The minimal grade 1 anterolisthesis at L4-5 is reduced in extension. There is no evidence of instabil ity on flexion or extension. IMPRESSION: Prominent degenerative spurring of the lower thoracic spine Multilevel degenerative disc disease, most severe at L1 to, with associated mild retrolisthesis at L2 -3 Grade 1 anterolisthesis at L4-5 due to degenerative change at the apophyseal joints, reduced in exten sekou Osteopenia No fracture or is detected Reviewed, dictated and finalized at location B. IMPRESSION: Prominent degenerative spurring of the lower thoracic spine Multilevel degenerative disc disease, most severe at L1 to, with associated mil d retrolisthesis at L2-3 Grade 1 anterolisthesis at L4-5 due to degenerative change at the apophyseal ayo ints, reduced in extension Osteopenia No fracture or is detected
--- NOTE | ~2021-09-12 | MR_ITS ---
EXAMINATION: MR lumbar spine wo/w con DATE: 09/12/2021 15:15 INDICATION: Right-sided sciatica. TECHNIQUE: Magnetic resonance imaging (MRI) of the lumbar spine was performed without and with 20 mL MultiHance intravenous contrast. COMPARISON: Lumbar spine MRI 09/17/2020 FINDINGS: There are cysts in the kidneys measuring up to 6.4 cm on the left. There is 3 mm retrolisth esis of L2 on L3. There is mild chronic anterior wedging of T12 and L1 vertebral bodies. There is mil dly decreased disc height at L3-L4, L4-L5, and L5-S1. The distal spinal cord signal intensity is norm al. The conus medullaris is at T12-L1. The following disc levels are specifically discussed: L1-L2: The disc does not extend beyond the endplate margin. There is moderate bilateral facet joint o steoarthritis. There is no neural foraminal stenosis. There is no central canal stenosis. L2-L3: The disc is bulging and has an annular fissure. There is severe bilateral facet joint osteoart hritis. There is mild bilateral neural foraminal stenosis. There is mild central canal stenosis. L3-L4: The disc is bulging and has an annular fissure. There is severe bilateral facet joint osteoart hritis. There is mild bilateral neural foraminal stenosis. There is mild central canal stenosis. Ther e are changes of posterior decompression. L4-L5: The disc is bulging and has an annular fissure. There is severe bilateral facet joint osteoart hritis. There is moderate right and mild left neural foraminal stenosis. There is mild central canal stenosis. There are changes of posterior decompression. L5-S1: The disc is bulging. There is severe bilateral facet joint osteoarthritis. There is mild right and moderate left neural foraminal stenosis. There is mild central canal stenosis. IMPRESSION: 1. Moderate lumbar spondylosis with interval improvement in central canal stenosis status post surgic al decompression. Reviewed, dictated and finalized at location A. IMPRESSION: 1. Moderate lumbar spondylosis with interval improvement in central canal steno sis status post surgical decompression.
[2021-09-12 14:51] LABS: Estimated Glomerular Filt Rate > 60
== END ==
PROVIDERS: PCP Family Medicine Adolescent Medicine; Visit Provider Neurological Surgery
DX: M54.31 Sciatica, right side (principal); M51.36 Other intervertebral disc degeneration, lumbar region; M85.88 Other specified disorders of bone density and structure, other site
CPT/HCPCS: 72100; 72158; A9577

== ENCOUNTER → 2021-09-21 11:46 | Outpatient (CLI) | payer MEDICARE, SELFPAY ==
--- NOTE | ~2021-09-21 | CT_ITS ---
EXAMINATION: CT lumbar spine wo con DATE: 09/21/2021 12:06 INDICATION: Lumbar spine instability TECHNIQUE: Computed tomography (CT) of the lumbar spine was performed without intravenous contrast. A utomated exposure control and iterative reconstruction technique were employed. The dose-length produ ct was 944.73 mGy-cm. COMPARISON: Lumbar spine MR dated 09/12/2021 FINDINGS: 2-3 mm retrolisthesis L5 on S1. L4 laminectomy and partial laminectomies at L3 and L5. Unchanged mini mal likely physiologic anterior wedging at L1. More caudal lumbar vertebral body heights are normal. No fracture. Mild disc height loss at T12-L1 and L4-L5. Minimal disc height loss at L3-L4 and L5-S1, the latter with small amount of vacuum phenomena. Partially visualized bilateral renal cysts. Couple sigmoid diverticula without adjacent inflammatory change to suggest diverticulitis. Paravertebral sof t tissues are otherwise unremarkable. The following disc levels are specifically discussed: T12-L1: Annular fissure and small right paracentral disc extrusion with disc material extending a few millimeters cephalad to the level of the inferior endplate of T12. There is moderate bilateral facet joint osteoarthritis. There is no neural foraminal stenosis. There is mild central canal stenosis. L1-L2: The disc does not extend beyond the endplate margin. There is moderate bilateral facet joint o steoarthritis. There is mild right neural foraminal stenosis. There is no central canal stenosis. L2-L3: Disc is bulging. There is severe bilateral facet joint osteoarthritis. There is mild to modera te bilateral neural foraminal stenosis. There is moderate central canal stenosis. L3-L4: Disc is bulging. There is severe bilateral facet joint osteoarthritis. There is moderate right and mild to moderate left neural foraminal stenosis. Posterior decompression. There is mild central canal stenosis. L4-L5: Disc is bulging. There is severe bilateral facet joint osteoarthritis. There is moderate bilat eral neural foraminal stenosis. Posterior decompression. There is mild central canal stenosis. L5-S1: Disc is bulging. There is severe bilateral facet joint osteoarthritis. There is moderate left and mild to moderate right neural foraminal stenosis. There is mild central canal stenosis. IMPRESSION: 1. Moderate lumbar spondylosis with posterior decompression at L3-L4 and L4-L5. Reviewed, dictated and finalized at location A.
== END ==
PROVIDERS: Visit Provider Neurological Surgery
DX: M53.2X6 Spinal instabilities, lumbar region (principal); M47.896 Other spondylosis, lumbar region
CPT/HCPCS: 72131

== ENCOUNTER → 2021-09-26 08:18 | Outpatient (CLI) | payer MEDICARE, SELFPAY ==
--- NOTE | ~2021-09-26 | US_ITS ---
EXAMINATION: US aorta [facility] DATE: 09/26/2021 09:08 CDT INDICATION: History of tobacco use TECHNIQUE: Grayscale, color Doppler, and pulsed Doppler images of the aorta and common iliac arteries were obtained. COMPARISON: None. FINDINGS: The proximal aorta measures 2.3 cm greatest sagittal dimension. The mid aorta measures 2.1 cm greates t sagittal dimension. The distal aorta measures 1.7 cm greatest sagittal dimension. The right common internal iliac artery measures 1.2 cm. The left common iliac artery measures 1.1 cm. IMPRESSION: 1. Normal caliber aorta without evidence for aneurysm. Reviewed, dictated and finalized at location A.
== END ==
PROVIDERS: Visit Provider Internal Medicine Cardiovascular Disease
DX: Z87.891 Personal history of nicotine dependence (principal)
CPT/HCPCS: 76706

== ENCOUNTER 2021-10-18 01:42 | Day surgery (SDC) | payer MEDICARE, SELFPAY ==
[2021-10-16 15:38] VITALS: BMI 37.1
[2021-10-18] VITALS (17 sets, daily range): BP systolic 125–143; BP diastolic 62–83; PULSE 42–57; RESP 10–22; TEMP 36.3; O2SAT 92–97; BMI 36.1
[2021-10-18 09:15] LABS: Basophils Absolute Auto 0.1 K/mm3 (0.0-0.1); Eosinophils Absolute Auto 0.1 K/mm3 (0-0.3); Eosinophils Percent Auto 2.2 % (0-4.4); Hemoglobin 14.5 g/dL (14.0-18.0); Immature Granulocyte Absolute 0.02 K/mm3 (0.00-0.031); Immature Granulocyte Percent A 0.3 % (0-0.5); Lymphocytes Percent Auto 14.4 % (18.3-44.2); Mean Corpuscular HGB Conc 32.2 g/dl (32-36); Mean Corpuscular Hemoglobin 29.8 pg (26-34); Mean Corpuscular Volume 92.4 fl (80-100); Mean Platelet Volume 10.2 fl (7.4-10.4); Monocytes Absolute Auto 0.6 K/mm3 (0.1-0.6); Monocytes Percent Auto 9.1 % (2.6-8.5); Neutrophils Absolute Auto 4.6 K/mm3 (1.3-6.7); Platelet Count Result 182 k/mm3 (150-375); Red Blood Count 4.87 M/mm3 (4.6-6.20); Red Cell Distribution Width 13.7 % (11.5-14.5); White Blood Count 6.3 K/mm3 (4.5-10.0)
--- NOTE | 2021-10-18 09:17 | WPDMODSED ---
Moderate Sedation Note-Pt Data Patient Data Diagnosis: Coronary artery disease with previous inferior NE and RCA PCI Abnormal nuclear stress test Preop evaluation for noncardiac surgery Present Complaint: No cardiovascular complaints Procedure to be performed/Plan: Left heart catheterization Allergies Allergy/AdvReac Type Severity Reaction Status Date / Time No Known Allergies Allergy Verified 10/18/21 08:59 Home Medications Medication Instructions Recorded Confirmed Type aspirin 81 mg tablet 81 mg PO DAILY 04/16/21 10/18/21 History nitroglycerin 0.4 mg sublingual 0.4 mg sublingual Q5MIN PRN Chest 04/17/21 10/16/21 Rx tablet (Nitrostat) Pain #25 tabs rosuvastatin 10 mg tablet (Crestor) 40 mg PO QAM #30 tabs 04/17/21 10/16/21 Rx hydrochlorothiazide 25 mg tablet 25 mg PO DAILY #90 tabs 06/12/21 10/16/21 Rx metformin 500 mg tablet,extended 500 mg PO BID #180 tabs 06/12/21 10/16/21 Rx release 24 hr meloxicam 15 mg tablet 15 mg PO DAILY PRN Pain, Moderate 06/18/21 10/16/21 Rx #90 tabs fosinopril 40 mg tablet 40 mg PO DAILY #90 tabs 08/16/21 10/16/21 Rx pantoprazole 40 mg tablet,delayed 40 mg PO HS #90 tabs 09/11/21 10/18/21 Rx release amlodipine 5 mg tablet 5 mg PO DAILY #90 tabs 10/16/21 10/18/21 Rx Current Medications: Active Medications Sodium Chloride (Normal Saline Iv) 500 mls @ 100 mls/hr IV CONT .Q5H JUAN CARLOS Sedation/Anesthesia: No previous sedation/anesthesia problems (including family history). [facility] Past Medical History Medical History (Updated 06/30/21 @ 11:01 by Ryan Sherman APRN) Abnormal colonoscopy 05/14 Polyps Coronary artery disease Former tobacco use GERD (gastroesophageal reflux disease) Hypertension Idiopathic gout, right wrist Surgical History Surgical History History of lumbar laminectomy 01/15 L3-L5 History of percutaneous coronary intervention History of total left hip arthroplasty 09/12 Family History Family History Father Acute myocardial infarction Social History Social History Smoking packs per day: 1.5 Smoking cigarettes per day: 30.0 Years smoked: 44 Smoking pack-years: 66.00 Smoking status: Former smoker Tobacco type: cigarettes Smokeless tobacco user: chewing tobacco Second hand tobacco smoke exposure: No Smoking end date: 06/28/18 Alcohol intake: current Drinks per week: 14 Alcohol use details: 2 drinks per day Substance use: current Substance use type: marijuana Other substance usage details: gummies Last use: 04/14/21 Living arrangements: with family Gender identity (if verbalized by the patient): Male Sexual Orientation (if Verbalized by the Patient): Straight or Heterosexual Spiritual care concerns: No Agree to blood products: Yes Mod Sed Physical Exam Physical Exam Pre Procedural Exam: Normal: Appearance, Neck, Throat, Airway, Lungs, Heart Size, Heart Rate, Heart Rhythm, Neuro Exam and Extremities Hours since solid foods: 12 Hours since liquid intake: 12 Mallampati Classification: class II Internal Medicine - PN: Obj Da Meds/Results Medications: Active Medications Generic Name Dose Route Start Last Admin Trade Name Freq PRN Reason Stop Dose Admin Sodium Chloride 500 mls @ 100 mls/hr 10/18/21 08:30 Normal Saline Iv IV CONT .Q5H JUAN CARLOS Labs CBC & Chem 7: 10/18/21 09:06 10/18/21 09:06 ASA Classification/Sedation ASA Classification/Sedation ASA Class: II Emergent: No Risks: Risks, benefits and alternatives explained and patient/family accepted plan for sedation. Patient re-evaluated immediately prior to sedation.
[2021-10-18 09:27] LABS: Anion Gap 11 mmol/L (8-16); Blood Urea Nitrogen 19 mg/dL (9-20); Calcium 9.2 mg/dL (8.4-10.2); Carbon Dioxide 30 mmol/L (22-30); Chloride 103 mmol/L (98-107); Estimated CRCL calculation 102 ml/min; Estimated Glomerular Filt Rate > 60; Glucose 130 mg/dL (65-110); Potassium 3.6 mmol/L (3.4-5.0); Sodium 144 mmol/L (137-145)
--- NOTE | 2021-10-18 10:14 | WPDCARDPROC ---
Cardiac Cath Procedure Note Date of procedure:: 10/18/21 Performing physician:: Deric Horn MD Indication:: Abnormal nuclear stress test preop evaluation for noncardiac surgery Brief clinical history:: this is a 71-year-old gentleman with known coronary disease. In the remote past he sustained an inferior wall infarction and underwent right coronary intervention. He has been doing well with medical therapy. A noncardiac operation is now being considered and a nuclear stress test was done showing evidence of inferior infarction with edd-infarct ischemia and an ejection fraction reduced to 36%. In this setting a follow-up angiogram has been recommended. He patient is not reporting chest pain Procedure Procedure performed:: left ventriculogram coronary angiogram femoral artery angiogram Sedation/Medication given:: Versed 2 mg case start time 9:51 a.m. case end time 10:12 a.m. Access site:: right femoral artery Estimated blood loss:: 20 cc Procedure note:: patient was brought to the cardiac catheterization lab in the postabsorptive state where the right femoral triangle was prepared and Draped in the usual sterile fashion. Anesthesia was then provided with 1% lidocaine infiltrated locally. Using the modified Seldinger technique the femoral artery was punctured and a 5 Dutch vascular sheath was placed. After this left heart catheterization was carried out. A 5 Dutch angled pigtail catheter was used to measure left-sided hemodynamics and to inject LV g in the PHELPS projection. Following this the pigtail catheter was removed and a 5 Dutch FL4 catheter was used to engage and inject the left coronary artery in multiple projections. Following this the right coronary artery was injected using a 5 Dutch JR4 catheter. The cineangiograms were then reviewed and the case was terminated. An angiogram was in the femoral artery through the sheath after which it was determined that the sheath will be removed with direct manual compression in the holding area. The patient tolerated procedure well there were no apparent complications. He had no sign of groin hematoma upon leaving the laboratory aide. Findings:: Hemodynamics: Central aortic pressure is 47 over 86 left ventricle 150 over to end-diastolic pressure 14 there is no significant gradient upon pullback across the aortic valve. Left ventricle: The LV is mildly dilated the posterior basal segment is akinetic the remaining inferior wall is also akinetic the global ejection fraction is visually estimated to be about 35%. The left main coronary artery is nicely patent the left anterior descending is a medium caliber artery extending down to around the apex. The LAD has [id number] diffuse atherosclerosis in all segments but there are no flow-limiting lesions identified. Proximal half of the LAD has diffuse 30-40% stenosis. The circumflex is a large caliber vessel giving rise to a small high OM branch that is moderately diffusely diseased very small in caliber for. The remainder of the circumflex has mild diffuse luminal irregularities and plaques throughout all segments. Once again no flow-limiting lesions are seen. The right coronary artery is was large caliber and dominant to the posterior circulation. The proximal to mid RCA is significantly calcified there is visible stent material in the 2nd portion of the artery. There is 95% proximal right coronary stenosis/distal to the stent there is 100% chronic total occlusion. There is a well-developed collateral from the circumflex to the occluded RCA which fills the RPDA and several RPL branches. Conclusion:: 1. Right coronary dominant circulation with chronic total occlusion of the mid RCA which was intervened upon is in the remote past in the setting of acute inferior infarction 2. [id number] diffuse disease throughout the left coronary artery which is not flow-limiting angiographically o
== END 2021-10-18 16:14 | disposition home or self-care (01) ==
PROVIDERS: PCP Family Medicine Adolescent Medicine; Visit Provider Specialist
PROC: 4A023N7 Measurement of Cardiac Sampling and Pressure, Left Heart, Percutaneous Approach (ICD-10-PCS; CPT 93452; principal; 2021-10-18 10:00)
DX: R94.39 Abnormal result of other cardiovascular function study (principal); I25.10 Atherosclerotic heart disease of native coronary artery without angina pectoris; I25.2 Old myocardial infarction; Z86.711 Personal history of pulmonary embolism; K21.9 Gastro-esophageal reflux disease without esophagitis; E78.5 Hyperlipidemia, unspecified; I10 Essential (primary) hypertension; Z87.891 Personal history of nicotine dependence; G47.33 Obstructive sleep apnea (adult) (pediatric)
CPT/HCPCS: 36415; 80048; 85025; 93458; C1887; C1894; J1644; J2250; J3010; J7040

== ENCOUNTER 2021-10-25 12:16 | Outpatient (CLI) | payer MEDICARE, SELFPAY | END 2021-10-25 12:17 | disposition home or self-care (01) | PROVIDERS: PCP Family Medicine Adolescent Medicine; Visit Provider Neurological Surgery | DX: M48.00 Spinal stenosis, site unspecified (principal); Z01.818 Encounter for other preprocedural examination | CPT/HCPCS: 36415; 86850; 86900; 86901 ==

== ENCOUNTER 2022-04-17 09:42 | Outpatient (CLI) | payer MEDICARE, SELFPAY ==
--- NOTE | ~2022-04-17 | CT_ITS ---
EXAMINATION: CT lung screening DATE: 04/17/2022 10:06 INDICATION: Lung cancer screening. Personal history of tobacco dependence. TECHNIQUE: Computed tomography (CT) of the chest was performed without intravenous contrast. The dose -length product was 333.11 mGy-cm. Automated exposure control and iterative reconstruction technique were employed. COMPARISON: CT dated 04/16/2021 FINDINGS: No thoracic lymphadenopathy. There is atherosclerosis of the aorta and coronary arteries. C ardiomegaly. There is a cyst at the upper pole of the left kidney. There is a 6 mm right middle lobe nodule, image 64. This is unchanged from CT dated 04/16/2021. There is bibasilar scarring or atelectas is. There is an 8 mm left lower lobe nodule, image 86. This is not significantly changed from prior s tudy when it was obscured by adjacent atelectasis. There is a 3 mm fissural nodule on the left. No pn eumothorax. No endobronchial lesions. Moderate thoracic spondylosis. No focal lytic or blastic lesion s. IMPRESSION: 1. Lung-RADS category 2: Benign appearance or behavior. Continue annual screening with noncontrast lo w-dose chest CT in 12 months. Reviewed, dictated and finalized at location [facility]. 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 Lung-RADS category 2: Benign appearance or behavior. Continue annual screeni ng with noncontrast low-dose chest CT in 12 months.
== END 2022-04-17 09:43 | disposition home or self-care (01) ==
PROVIDERS: PCP Family Medicine Adolescent Medicine; Visit Provider Nurse Practitioner Family
DX: Z12.2 Encounter for screening for malignant neoplasm of respiratory organs (principal); Z87.891 Personal history of nicotine dependence
CPT/HCPCS: 71271

== ENCOUNTER 2023-06-26 12:31 | Outpatient (CLI) | payer MEDICARE, SELFPAY ==
--- NOTE | ~2023-06-26 | CT_ITS ---
CT Scan of the Chest without Contrast: Clinical Indication: Lung cancer screening, nicotine dependence Technique: Contiguous sections were acquired throughout the chest without intravenous contrast. Dose reduction technique was used on this scan by utilizing automated exposure control and iterative recon struction technique. The dose-length product (DLP) was 292.08 mGy-cm. COMPARISON: 04/17/2022 Findings: There is no evidence of any significant mediastinal, hilar or axillary lymphadenopathy. Extensive cor onary artery calcifications are present. There is no evidence of pleural or pericardial effusion. Stable 4 mm right middle lobe pulmonary nodule. Stable 6 mm left lower lobe pulmonary nodule. Images through the upper abdomen reveal no abnormalities. Impression: Lung RADS 2: Benign appearance. 12 month follow-up screening CT advised. Reviewed, dictated and finalized at [facility]. Impression: Lung RADS 2: Benign appearance. 12 month follow-up screening CT advised.
== END 2023-06-26 12:32 | disposition home or self-care (01) ==
LOC: ANHIMG 12:32
PROVIDERS: PCP Family Medicine Adolescent Medicine; Visit Provider Nurse Practitioner Family
DX: Z12.2 Encounter for screening for malignant neoplasm of respiratory organs (principal); Z87.891 Personal history of nicotine dependence
CPT/HCPCS: 71271

== ENCOUNTER 2024-07-07 11:19 | Inpatient (IN) | payer MEDICARE, SELFPAY ==
[2024-07-07] VITALS (7 sets, daily range): BP systolic 134–156; BP diastolic 80–97; PULSE 61–89; RESP 16–18; TEMP 36.4–36.8; O2SAT 93–96; BMI 32.8
--- NOTE | ~2024-07-07 | XR_ITS ---
EXAMINATION: XR chest 1V portable DATE: 07/07/2024 12:15 INDICATION: Shortness of breath TECHNIQUE: AP view of the chest was obtained on 3 images. COMPARISON: Chest CT dated 06/26/2023 FINDINGS: Mild increased interstitial pattern and a few linear opacities in the bilateral mid and lower lung zo yg suggesting combination of mild pulmonary edema and mild atelectasis. Differential would include p neumonia. No pleural effusion or pneumothorax. Heart size is within normal limits for AP technique. R ight total shoulder arthroplasty. The cardiomediastinal silhouette is normal. Visualized bones and so ft tissues are unremarkable. IMPRESSION: 1. Scattered linear and interstitial opacities in the bilateral mid and lower lung zones likely combi nation of atelectasis and mild pulmonary edema versus less likely pneumonia. Reviewed, dictated and finalized at location A. IMPRESSION: 1. Scattered linear and interstitial opacities in the bilateral mid and lower l osbaldo zones likely combination of atelectasis and mild pulmonary edema versus les s likely pneumonia.
--- NOTE | 2024-07-07 11:38 | ECG_ITS ---
Test Date: 2024-07-07 11:45:57 Measurements Intervals [place] Rate: 57 P: 15 VA: 207 QRS: 14 QRSD: 138 T: 150 QT: 455 QTc: 445 Interpretive Statements SINUS BRADYCARDIA WITH SINUS ARRHYTHMIA INTRAVENTRICULAR CONDUCTION DELAY [130+ ms QRS DURATION] INFERIOR MYOCARDIAL INFARCTION , PROBABLY OLD [40+ ms Q WAVE AND/OR ST/T ABNORMALITY IN II/aVF] No previous ECG available for comparison Electronically Signed On 07-07-2024 15:04:05 CDT by Jenny Cespedes M.D.
--- OUTSIDE RECORDS SUMMARY | 2024-07-07 11:41 | XMS_ITS ---
Author Organization [employer] Address [address] [place] [address] [address] [place] [address] Care Team Providers Care Household Appliance Mechanic Name Role Phone Mike ROSADO, Efraín Primary Care Provider Germaine vailable Zachary Fisher Unavailable [phone] REASON FOR VISIT R/S EGD in 01/30 Encounters Encounter Location Date Provider Diagnosis [facility], [address] Toro [address] [place] [id number] 12/31/2023 Zachary Fisher Plan Of Treatment Next Appt Details Provider Name:Zachary zhang, 07/13/2024 10:00:00 AM, [address] [place] [address], [place], [address], Progress Notes * Deric CHRISTIANSEN EDOB:1950 (73 yo M)Acc No.[id number]:12/31/2023 Patient: Gavin Deric EASON :1950 A ge:73 Y S ex:Male Address:[address] , [place] [address] * true * Date: Generated for Printi ng/Faxing/eTransmitting on: 0 07/07/2024 11:41 AM CDT
--- OUTSIDE RECORDS SUMMARY | 2024-07-07 11:41 | XMS_ITS | Referral Summary ---
Author Organization [facility] [address] [place] [address] [address] [place] [address] [address] [place] [address] Care Team Providers Care Electronic Train Control Technician Name Role Phone Efraín Mckeon MD Primary Care Prov ider Troy Wallis MD Unavailable [phone] Encounters Date Type Department Care Team Description 07/07/2024 Telephone [facility] Medical [facility] Cardiology [address] [place] [address] [address] [place] [address] Royce Faith MD 06/15/2024 Results Follow-Up [facility] Cardiology [address] [place] [address] [address] [place] [address] Royce Faith MD 05/26/2024 11:30 AM CDT Office Visit [facility] Cardiology [address] [place] [address] [address] [place] [address] Royce Faith MD Chronic systolic congestive heart failure (HCC) (Primary Dx); Coronary arteriosclerosis in [place] artery; Hyperlipidemia LDL goal <70; Primary hypertension; Cardiomyopathy, ischemic; Obstructive sleep apnea syndrome; Severe obesity (HCC) 04/13/2024 1:46 PM DIRECTOR TRIAL - 04/13/2024 11:59 PM DIRECTOR TRIAL Hospital Encounter [facility] [address] [place] [address] Brian Rob MD Status post replacement of right shoulder joint Discharge Disposition: Discharge to home or self care 04/13/2024 1:40 PM DIRECTOR TRIAL Office Visit [facility] [address] [facility] 2[address] [place] [address] Brian Rob MD Status post replacement of right shoulder joint (Primary Dx) from Last 3 Months Allergies No known active allergies Medications pantoprazole DR (PROTONIX) 40 mg EC tabletIndicatio ns:acid reflux Take 1 tablet (40 mg total) by mouth every morning 3 05/29/2018 Active metFORMIN XR (GLUCOPHAGE XR) 500 mg 24 hr tabletIndicatio ns:type 2 diabetes mellitus Take 1 tablet (500 mg total) by mouth 2 (two) times a day 02/23/2021 Active amLODIPine (NORVASC) 5 mg tabletIndicatio ns:hypertension Take 1 tablet (5 mg total) by mouth every morning Active hydroCHLOROthia zide (HYDRODIURIL) 25 mg tabletIndicatio ns:hypertension Take 1 tablet (25 mg total) by mouth every morning Active nebivoloL (BYSTOLIC) 20 mg tabletIndicatio ns:hypertension Take 1 tablet (20 mg total) by mouth every morning Active nitroglycerin (NITROSTAT) 0.[address] 1 tablet (0.4 mg total) under the tongue every 5 (five) minutes as needed for chest pain Active Accu-Chek Guide test strips strip USE 1 DAILY TO TEST BLOOD GLUCOSE 03/05/2022 Active cetirizine (ZyrTEC) 10 mg tablet 1 tablet (10 mg total) 07/21/2020 Active acetaminophen 500 mg capsuleIndicati ons:Pain Take 2 capsules (1,000 mg total) by mouth every 6 (six) hours 90 tablet 04/25/2022 Active rosuvastatin (CRESTOR) 40 mg tabletIndicatio ns:Hyperlipidem ia, unspecified,Ath erosclerotic heart disease of [place] coronary artery without angina pectoris TAKE 1 TABLET BY MOUTH EVERY DAY 90 tablet 3 09/24/2022 Active sacubitriL-vals venessa (ENTRESTO) 49-51 mg tabletIndicatio ns:chronic heart failure Take 1 tablet by mouth 2 (two) times a day 180 tablet 1 03/18/2023 Active aspirin 81 mg enteric coated tablet Take 1 tablet (81 mg total) by mouth daily Active meloxicam (MOBIC) 15 mg tablet Take 1 tablet (15 mg total) by mouth daily as needed 08/18/2023 Active empagliflozin (JARDIANCE) 10 mg tabletIndicatio ns:heart failure associated with type 2 diabetes mellitus Take 1 tablet (10 mg total) by mouth daily 30 tablet 11 05/26/2024 05/27/19 26 Active Active Problems Problem Noted Date Diagnosed Date Severe obesity 05/26/2024 Arthritis of right glenohumeral joint 04/24/2022 Osteoarthritis of glenohumeral joint, right 03/28 Overview (04/06/2022): Added automatically from request for surgery [id number] Cardiomyopathy, ischemic 12/07/2021 Spinal stenosis of lumbar re gion with neurogenic claudication 10/26/2021 Overview (10/26/2021): Added automatically from request for surgery [id number] Chronic systolic congestive heart failure 2021 History of tobacco use 09/14/2021 Cardiomyopathy 02/11/2019 Preoperative cardiovascular examination 08/09/19 Primary osteoarthritis of left hip 08/01/2018 Overview (08/01/2018): Added automatically from request for surgery [id number] Atypical chest pain 10/01/2016 Hyperlipidemia LDL goal <70 10/14/2015 Overview (06/01/2016): Hyperlipidemia LDL goal <70 Coronary arteriosclerosis in [place] artery 10/13 Overview (06/01/2016): Coronary artery disease involving [place] coronary artery of [place] heart without angina pectoris Adiposity 11/18/2013 Overview (06/01/2016): Obesity Chronic coronary artery disease 11/18/2013 Overview (06/01/2016): Coronary artery disease Obstructive sleep apnea syndrome 11/18/2013 Overview (06/01/2016): Obstructive sleep apnea Hypertension 07/11/2013 Overview (06/01/2016): Hypertension Dyslipidemia 07/11/2013 Overview (06/01/2016): Dyslipidemia Resolved Problems Problem Noted Date Diagnosed Date Resolved Date Essential hypertension 10/14/201509/14 Overview (06/01/2016): Essential hypertension Tobacco dependence syndrome 11/18/2013 09/14/2021 Overview (06/01/2016): Tobacco abuse Social History Tobacco Use Types Packs/Day Years Used Date Smoking Tobacco: Former Cigarettes 1.3 40 0 06/28/1978 - 06/28/2018 Smokeless Tobacco: Former Chew Quit: 06/28/2018 Tobacco Cessation:Counseling Given: Not Answered Alcohol Use Standard Drinks/Week Comments Yes 3 (1 standard drink = 0.6 oz pur e alcohol) AUDIT-C Answer Date Recorded Q1: How often do you have a drink containing alcohol? 4 or more times a week 04/24/2022 Q2: How many drinks containi ng alcohol do you have on a typical day when you are drinking? 1 or 2 Q3: How often do you have si x or more drinks on one occasion? Monthly 04/24/2022 Personal Safety Answer Date Recorded Getting School Help Needed Denies 03/18 Sex and Gender Information Value Date Recorded Sex Assigned at Not on file Legal Sex Male 3:25 AM DIRECTOR TRIAL Gender Identity Not on file Sexual Orientation Not on file Last Filed Vital Signs Vital Sign Reading Time Taken Comments Blood Pressure 118/70 05/26/2024 11:59 AM CDT Pulse 58 05/26/2024 11:59 AM CDT Temperature 36.5 C (97.7 F) 04/25/2022 4:00 AM DIRECTOR TRIAL Respiratory Rate 18 04/25/2022 11:27 AM DIRECTOR TRIAL Oxygen Saturation 96% 05/26/2024 11:59 AM CDT Inhaled Oxygen Concentration - - Weight 109.3 kg (241 lb) 05/26/2024 11:59 AM CDT Height 175.3 cm (5' 9 ) 05/26/2024 11:59 AM CDT Body Mass Index 35.59 05/26/2024 11:59 AM CDT Plan of Treatment Not on file Medical Devices Implanted Type [employer] Salesperson Device Identifier Shelf Expiration Date Model / Serial / Lot [employer] Simplex P Radiopaque Full Dose Cement Bone Sterile 6191-1-010 - [id number] Implanted:Qty: 1 on 04/24/2022 by Brian Rob MD at [facility] Bone Cement Right: Shoulder [employer] 08/24/2024 6191-1-01 0 / / [id number] Stent Implanted:Qty: 3 Stent Heart [employer] Cortiloc Augment Shoulder Right 15 D Large Component Glenoid [id number] - [id number] - [id number] Implanted:Qty: 1 on 04/24/2022 by Brian Rob MD at [facility] Right: Shoulder [employer] 02/10/2026 [id number] / [id number] / [employer] Ladder Operator Perform Low Offset Modular Humeral Head Ti [id number] - [id number] - [id number] Implanted:Qty: 1 on 04/24/2022 by Brian Rob MD at [facility] Right: Shoulder [employer] 10/25/2025 [id number] / [id number] / [employer] Stem Perform Sz 3 Humeral [id number] - [id number] - [id number] Implanted:Qty: 1 on 04/24/2022 by Brian Rob MD at [facility] Right: Shoulder [employer] 08/25/2026 [id number] / [id number] / [employer] Head Perform Cocr Modular Humeral [id number] - [id number] - [id number] Implanted:Qty: 1 on 04/24/2022 by Brian Rob MD at [facility] Right: Shoulder [employer] 11/11/2024 [id number] / [id number] / Procedures Procedure Name Priority Date/Time Associated Diagnosis Comments BASIC METABOLIC PANEL Routine 06/12/2024 12:45 PM CDT Cardiomyopathy, ischemic POCT LIPID PANEL Routine 05/26/2024 12:0 1 PM CDT Coronary arteriosclerosis in [place] artery Hyperlipidemia LDL goal <70 XR SHOULDER RIGHT 2 OR MORE VIEWS Schedule Routine, Read Routine (OP Routine) 04/13/2024 2:02 PM DIRECTOR TRIAL Status post replacement of right shoulder joint from Last 3 Months Results * (ABNORMAL) Basic metabolic panel (06/12/2024 12:45 PM CDT) Glucose 81 70 - 99 mg/dL [facility] - 01 BUN 15 8 - 27 mg/dL [facility] - 01 Creatinine, Serum 0.78 0.76 - 1.27 mg/dL [facility] - 01 eGFR 93 >59 mL/min/1.7 3 [facility] - 01 BUN/creat ratio 19 10 - 24 [facility] - 01 Sodium 146(H) 134 - 144 mmol/L [facility] - 01 Potassium, sr 4.3 3.5 - 5.2 mmol/L [facility] - 01 Chloride 109(H) 96 - 106 mmol/L [facility] - 01 CO2 21 20 - 29 mmol/L [facility] - 01 Calcium 9.7 8.6 - 10.2 mg/dL [facility] - 01 Blood 06/12/2024 12:4 5 PM CDT 06/12/2024 Narrative [facility] - 06/13/2024 8:10 AM CDT Performed at: - [address] [id number] Nurse School: Janusz Guerin PhD, Phone: [phone] us Royce Faith MD LAB BLOOD ORDERABLES Tiana l Result [facility] - 01 * POCT lipid panel (05/26/2024 12:01 PM CDT) Cholesterol, POC 101 mg/dL HDL, POC 39 mg/dL Triglycerides, POC 89 mg/dL LDL Cholesterol POC 44 mg/dL Chol/HDL Ratio, POC 1.1 Non-HDL Cholesterol, POC 62 mg/dL Cholesterol Total, POC 101 mg/dL Capillary blood 05/26/2024 1 2:01 PM CDT Royce Faith MD POINT OF CARE TEST ORDERA BLES Final Result * XR Shoulder Right 2+ View (04/13/2024 2:02 PM DIRECTOR TRIAL) Anatomical Region Laterality Modality Upper Extremities, Shoulder Right Comp uted Radiography 04/13/2024 2:30 PM DIRECTOR TRIAL Impressions 04/13/2024 2:30 PM DIRECTOR TRIAL Unchanged anatomic total right glenohumeral arthroplasty in expected position. Electronically signed by: Reece Flores M.D. Narrative 04/13/2024 2:30 PM DIRECTOR TRIAL XR SHOULDER RIGHT 2 OR MORE VIEWS HISTORY: Shoulder arthroplasty. FINDINGS: 4 views of the right shoulder are obtained and compared with 07/15/2023. There is redemonstrated anatomic total right glenohumeral arthroplasty. Orthopedic components are in expected position. There is no periprosthetic fracture or osteolysis. Alignment and soft tissues are normal. Unchanged mild acromial clavicular osteoarthritis. Procedure Note Reece Flores MD - 04/13/2024 XR SHOULDER RIGHT 2 OR MORE VIEWS HISTORY: Shoulder arthroplasty. FINDINGS: 4 views of the right shoulder are obtained and compared with 07/15/2023. There is redemonstrated anatomic total right glenohumeral arthroplasty. Orthopedic components are in expected position. There is no periprosthetic fracture or osteolysis. Alignment and soft tissues are normal. Unchanged mild acromial clavicular osteoarthritis. IMPRESSION: Unchanged anatomic total right glenohumeral arthroplasty in expected position. Electronically signed by: Reece Flores M.D. Brian Rob MD IMG XR PROCEDURES Final Result from Last [address] [facility]ICARE [facility] MEDICARE [facility] Advance Directives For more information, please contact: [phone] * Full Code (Latest Code Status on File) Date Activated Date Inactivated Comments 04/24/2022 2:00 PM 04/25/2022 8:43 PM Care Teams Electronic Train Control Technician Relationship Specialty Start Date End Date Efraín Mckeon MD [address] [place] [address] PCP - General 03/19/12 Troy Wallis MD [address] [facility] [address] [place] [address] Surgeon Neurosurgery 11/01/21
--- OUTSIDE RECORDS SUMMARY | 2024-07-07 11:41 | XMS_ITS | Clinical Summary ---
Author Organization [facility] Address [address] [place] [address] Phone Care Team Providers Care Resistor Inspector Name Role Phone Efraín Mckeon MD Primary Care Provider [phone] Allergies No known active allergies Medications fosinopril (MONOPRIL) 20 mg tablet Take 40 mg by mouth daily. Active nebivolol (BYSTOLIC) 20 mg Tablet Take by mouth daily. Active amLODIPine (NORVASC) 5 mg tablet Take 5 mg by mouth daily. Active hydrochlorothia zide 25 mg Oral tablet Take 25 mg by mouth daily. Active lansoprazole (PREVACID) 30 mg Capsule, Delayed Release(E.C.) Take 30 mg by mouth daily. Active aspirin (ANGEL CHEWABLE) 81 mg Tablet, Chewable Take 81 mg by mouth daily. Active pantoprazole (PROTONIX) 40 mg Tablet, Delayed Release (E.C.) Take 40 mg by mouth daily. Active meloxicam (MOBIC) 15 mg tablet Take 15 mg by mouth daily. Active cetirizine (ZyrTEC) 10 mg tablet Take 10 mg by mouth daily. Active HYDROcodone-alecia taminophen (NORCO) 5-325 mg tablet Take 1 Tablet by mouth 3 times daily as needed for Pain, Moderate. Active indomethacin (INDOCIN) 50 mg capsule Take 50 mg by mouth 3 times daily. Active gabapentin (NEURONTIN) 600 mg tablet Take 600 mg by mouth 2 times daily. Active CPAP / BIPAP suppliesIndicat ions:LAST on CPAP Provider Plus Mask and all related supplies as needed, fit mask to comfort. 1 Each 09/01/202 1 Active cpap manager of medical CPAP 10 cwp with heated humidifier. Length of need 99 months; Fit mask to comfort mask with headgear every 6 months; mask only every 3 months; cushions per month; Tubing 1 every 3 months, water chamber 1 every 6 months, chin strap 1 every 6 months, filters disposable 2 per month, filters reusable 1 per 6 months. 1 Each 2 Active Active Problems Problem Noted Date Diagnosed Date LAST on CPAP 10/23/2018 Class 2 obesity due to exces s calories without serious comorbidity with body mass index (BMI) of 37.0 to 37.9 in adult 10/23/2018 Family History Medical History Relation Name Comments Heart Attack Father Diabetes Mother Kidney Disease Mother kidney failur e Cancer Sister Diabetes Sister Colon Cancer Neg Hx Relation Name Status Comments Father Maternal Grandfather Maternal Grandmother Mother Paternal Grandfather Paternal Grandmother Sister Social History Tobacco Use Types Packs/Day Years Used Date Smoking Tobacco: Former Cigarettes 0.5 37 0 06/28/1981 - 06/28/2018 Smokeless Tobacco: Former Quit: 06/28/2018 Tobacco Cessation:Counseling Given: No Alcohol Use Standard Drinks/Week Comments Yes 3.3 (1 standard drink = 0.6 oz p ure alcohol) Sex and Gender Information Value Date Recorded Sex Assigned at Not on file Legal Sex Male 4:16 AM ATTENDING PATHOLOGIST Gender Identity Not on file Sexual Orientation Not on file Occupation Industry Job Start Date Job End Date Not on file Not on file Not on file Not on file Last Filed Vital Signs Vital Sign Reading Time Taken Comments Blood Pressure 138/90 10/26/2020 10:23 AM CDT Pulse 53 10/26/2020 10:23 AM CDT Temperature 36.1 C (97 F) 10/26/2020 10:23 AM CDT Respiratory Rate 16 10/26/2020 10:23 AM CDT Oxygen Saturation 95% 10/26/2020 10:23 AM CDT Inhaled Oxygen Concentration - - Weight 120.7 kg (266 lb) 10/26/2020 10:23 AM CDT Height 179.1 cm (5' 10.5 ) 10/26/2020 10:23 AM C DT Body Mass Index 37.63 10/26/2020 10:23 AM CDT Plan of Treatment Health Maintenance Due Date Last Done Comments DTAP/TDAP/TD VACCINES (1 - Tdap) 07/19/1967 PNEUMOCOCCAL VACCINE 50+ YEARS (1 of 2 - PCV) 07/18/18 68 COLORECTAL SCREENING 1993 Colorectal Cancer Screening 1993 FIT-DNA Q 3 years 1993 FIT/FOBT Q 1 year 1993 Flex Sig/CT Colonography Q 5 years 1993 ZOSTER VACCINE (1 of 2) 1998 RSV VACCINE (60+ or ) (1 - 1-dose 75+ series) 07/19/2023 INFLUENZA VACCINE (#1) 2023 Insurance MEDICARE PART A AND B BCBS SUPP Advance Directives For more information, please contact: [phone] * Full Code (Latest Code Status on File) Date Activated Date Inactivated Comments 12/24/2012 9:01 AM 12/24/2012 12:24 PM Care Teams Resistor Inspector Relationship Specialty Start Date End Date Efraín Mckeon MD PCP - General Family Practice 12/24/12
--- OUTSIDE RECORDS SUMMARY | 2024-07-07 11:41 | XMS_ITS | Patient Health Record ---
Author Organization [employer] Address [address] [facility] [address] [place] [address] Care Team Providers Care Clipman Name Role Phone Efraín Mckeon MD Primary Care Provider Germaine Zachary Herring Unavailable [phone] Allergies No Known Allergies Reason For Referral No Information Medications Medication SIG (Take, Route, Frequency, Duration) Notes Start Date End Date Status Entresto Active metFORMIN HCl Active Pantoprazole Sodium 40 MG 1 tablet Orall y Once a day for 30 day(s) 03/05/2018 Active OTC/Vitamins Zyrtec, ASA Activ e amLODIPine Besylate Active hydroCHLOROthiazide Active Rosuvastatin Calcium Active Nebivolol HCl Active Meloxicam Active Immunizations Vaccine Route Administration Date Status Comme nts Influenza Vaccination Unknown 02/13/2022 Refused Pneumococcal conjugate PCV 13 Unknown 02/13/2022 Refuse d Social History Tobacco Use: Social History Observation Description Date Details (start date - stop date) Former Smoker NA - NA Tobacco Use/Smoking Question Answer Notes Are you a former smoker How long has it been since you last smoked? 1-5 years Problems Problem Type SNOMED Code ICD Code Onset Dates Problem Status W/U Status Risk Notes Problem 610438359 History of colon polyps (Z86.010) Active confirmed Problem Diverticular disease of colon (961319783) Diverticulosis (K57.90) Active confirmed Problem 165273856 Acuña's esophagus determined by biopsy (K22.70) Active confirmed Vital Signs Height 70 in 09/24/2023 Weight 231 lbs 09/24/2023 BMI 33.14 kg/m2 09/24/2023 Procedures Procedure Date Ordered Date Performed Result Body Sit e Upper Endoscopy 09/24/2023 N/A Encounters Encounter Location Date Provider Diagnosis [address] [place] [address] 09/24/2023 Zachary Fisher Heartburn R12 ; Hiat al hernia K44.9 ; Acuña's esophagus determined by biopsy K22.70 ; History of colon polyps Z86.010 and Diverticulosis K57.[address] [place] [address] 09/24/2023 Zachary Fisher [address] [place] [address] 12/31/2023 Zachary Fisher [address] [place] [address] 07/02/2024 Zachary Fisher Assessments Encounter Date Diagnosis (ICD Code) Assessment Notes Treatment Notes Treatment Clinical Notes Section Notes 09/24/2023 Heartburn (ICD-10 - R12) 1. Dietary and lifestyle changes for heartburn and indigestion were reviewed.2. Continue current proton pump inhibitor.3. He is due for endoscopy. Given a history of heart failure, his exam will be done in the hospital setting. Alternatives, benefits and risks were reviewed. Questions were answered.4. Repeat colonoscopy 5 years from last exam.5. Fiber and fluids for known diverticular disease.6. He is otherwise encouraged to return to the care of his primary doctor. CHRONIC HEARTBURN, HIATAL HERNIA, ACUÑA'S ESOPHAGUS-patie nt is a very pleasant 73-year-old gentleman with chronic heartburn, hiatal hernia and short segment Acuña's esophagus. Asymptomatic on current maintenance proton pump inhibitor. He is aware that he is late for follow-up endoscopy. Alternatives, benefits and risks were reviewed. Given a history of heart failure, his examination will be performed in the hospital setting. HISTORY OF COLON POLYPS-negative lower GI tract review of systems. Colonoscopy in March 2022 revealed only a small polyp. I have recommended a 5-year follow-up from his last study. DIVERTICULOSIS COLI-asymptomat ic. 09/24/2023 Hiatal hernia (ICD-10 - K44.9) CHRONIC HEARTBURN, HIATAL HERNIA, ACUÑA'S ESOPHAGUS-bev bennett is a very pleasant 73-year-old gentleman with chronic heartburn, hiatal hernia and short segment Acuña's esophagus. Asymptomatic on current maintenance proton pump inhibitor. He is aware that he is late for follow-up endoscopy. Alternatives, benefits and risks were reviewed. Given a history of heart failure, his examination will be performed in the hospital setting. HISTORY OF COLON POLYPS-negative lower GI tract review of systems. Colonoscopy in March 2022 revealed only a small polyp. I have recommended a 5-year follow-up from his last study. DIVERTICULOSIS COLI-asymptomat ic. 09/24/2023 Acuña's esophagus determined by biopsy (ICD-10 - K22.70) CHRONIC HEARTBURN, HIATAL HERNIA, ACUÑA'S ESOPHAGUS-bev bennett is a very pleasant 73-year-old gentleman with chronic heartburn, hiatal hernia and short segment Acuña's esophagus. Asymptomatic on current maintenance proton pump inhibitor. He is aware that he is late for follow-up endoscopy. Alternatives, benefits and risks were reviewed. Given a history of heart failure, his examination will be performed in the hospital setting. HISTORY OF COLON POLYPS-negative lower GI tract review of systems. Colonoscopy in March 2022 revealed only a small polyp. I have recommended a 5-year follow-up from his last study. DIVERTICULOSIS COLI-asymptomat ic. 09/24/2023 History of colon polyps (ICD-10 - Z86.010) CHRONIC HEARTBURN, HIATAL HERNIA, ACUÑA'S ESOPHAGUS-bev bennett is a very pleasant 73-year-old gentleman with chronic heartburn, hiatal hernia and short segment Acuña's esophagus. Asymptomatic on current maintenance proton pump inhibitor. He is aware that he is late for follow-up endoscopy. Alternatives, benefits and risks were reviewed. Given a history of heart failure, his examination will be performed in the hospital setting. HISTORY OF COLON POLYPS-negative lower GI tract review of systems. Colonoscopy in March 2022 revealed only a small polyp. I have recommended a 5-year follow-up from his last study. DIVERTICULOSIS COLI-asymptomat ic. 09/24/2023 Diverticulosis (ICD-10 - K57.90) CHRONIC HEARTBURN, HIATAL HERNIA, AUCÑA'S ESOPHAGUS-alirioe sabrina is a very pleasant 73-year-old gentleman with chronic heartburn, hiatal hernia and short segment Acuña's esophagus. Asymptomatic on current maintenance proton pump inhibitor. He is aware that he is late for follow-up endoscopy. Alternatives, benefits and risks were reviewed. Given a history of heart failure, his examination will be performed in the hospital setting. HISTORY OF COLON POLYPS-negative lower GI tract review of systems. Colonoscopy in March 2022 revealed only a small polyp. I have recommended a 5-year follow-up from his last study. DIVERTICULOSIS COLI-asymptomat ic. Plan Of Treatment Pending Test Test Name Order Date Upper Endoscopy 09/24/2023 Colonoscopy 12/20/2020 Colonoscopy 02/13/2022 Next Appt Details Provider Name:Zachary zhang, 07/13/2024 10:00:00 AM, [address] [place] [address], [phone], Insurance Providers Payer Name Payer Address Payer Phone Subscriber Number Group Number Insured Name Patient Relationship to Insured Coverage Start Date Coverage End Date Medicare E2 [address] [address] [place] [address] [id number] Deric Buck Self - patient is the insured [facility] Medicare Supplement [address] [place] [address] [id number] Plan F Heber Deric Self - patient is the insured Medical (General) History Medical History History ICD Code Colon Polyps Acuña's Esophagus Diverticulosis Hiatal Hernia Hemorrhoids GERD Heart Disease/ Stents Hypertension Skin Cancer Sleep Apnea Diabetes Congestive Heart Failure Basal Cell Carcinoma Surgical History Surgery Date(Month/Year) Colonoscopy:Examined portion of ileum was normal.One diminutive polyp in the ascending colon.Diverticulosis in the left colon.Hemorrhoids. 03/2022 EGD: Esophageal mucosal mallory ges consistent with short segment Acuña's Esophagus. Small Hiatal Hernia. 12/2018 Hip replacement 08/2018 Stent placement/ Angioplasty 10/2021 Skin cancer removal x2 Back Surgery x2
--- OUTSIDE RECORDS SUMMARY | 2024-07-07 11:41 | XMS_ITS ---
Author Organization [facility] Address [address] [place] [address] [address] [place] [address] Care Team Providers Care Quiller Operator Name Role Phone Mike ROSADO, Efraín Primary Care Provider Germaine vailable Zachary Fisher Unavailable [phone] REASON FOR VISIT Letter for Annual Office Visit Encounters Encounter Location Date Provider Diagnosis [facility] [address] [place] [address] [address] [place] [address] 07/02/2024 Zachary Fisher Plan Of Treatment Next Appt Details Provider Name:Zachary zhang, 07/13/2024 10:00:00 AM, [address] [place] [address], [phone], Progress Notes * Deric CHRISTIANSEN EDOB:1950 (73 yo M)Acc No.[id number]:07/02/2024 Patient: Deric MOSS Arti :1950 A ge:73 Y S ex:Male Address:[address] , [place] [address] * true * Date: Generated for Printi ng/Faxing/eTransmitting on: 0 07/07/2024 11:41 AM CDT
--- OUTSIDE RECORDS SUMMARY | 2024-07-07 11:41 | XMS_ITS | Clinical Summary ---
Author Organization [facility] [address] Address [address] [place] [address] Care Team Providers Care Spinning Machine Tender Name Role Phone Efraín Mckeon MD Primary Care Prov ider Troy Wallis MD Unavailable [phone] Allergies No known active allergies Medications pantoprazole [...] ns:Hyperlipidem ia, unspecified,Ath erosclerotic heart disease of [place] coronary artery without angina pectoris TAKE 1 [...] (04/06/2022): Added automatically from request for surgery [id number] Cardiomyopathy, ischemic 12/07/2021 Spinal stenosis of lumbar re gion with neurogenic claudication 10/26/2021 Overview (10/26/2021): Added automatically from request for surgery [id number] Chronic systolic congestive heart failure 2021 History of tobacco use 09/14/2021 Cardiomyopathy 02/11/2019 Preoperative cardiovascular examination 08/09/19 19 Primary osteoarthritis of left hip 08/01/2018 Overview (08/01/2018): Added automatically from request for surgery [id number] Atypical chest pain 10/01/2016 Hyperlipidemia LDL goal <70 10/14/2015 Overview (06/01/2016): Hyperlipidemia LDL goal <[address]clerosis in [place] artery 10/13 Overview (06/01/2016): Coronary artery disease involving [place] coronary artery of [place] heart without angina pectoris Adiposity 11/18/2013 Overview [...] syndrome 11/18/2013 09/14/2021 Overview (06/01/2016): Tobacco abuse Encounters Date Type Department Care Team Description 07/07/2024 Telephone [facility] Cardiology [address] [place] [address] [place] [address] Royce Faith MD 06/15/2024 Results Follow-Up [facility] Medical [facility] Cardiology [address] [place] [address] [address] [place] [address] Royce Faith MD 05/26/2024 11:30 AM CDT Office Visit [facility] Cardiology [address] [place] [address] [address] Royce Faith MD Chronic systolic congestive heart failure (HCC) (Primary Dx); Coronary arteriosclerosis in [place] artery; Hyperlipidemia LDL goal <70; Primary hypertension; Cardiomyopathy, ischemic; Obstructive sleep apnea syndrome; Severe obesity (HCC) 04/13/2024 1:46 PM PROCESSING TALC AND BORATE SUPERVISOR - 04/13/2024 11:59 PM PROCESSING TALC AND BORATE SUPERVISOR Hospital Encounter [facility] [address] [place] [address] Brian Rob MD Status post replacement of right shoulder joint Discharge Disposition: Discharge to home or self care 04/13/2024 1:40 PM PROCESSING TALC AND BORATE SUPERVISOR Office Visit [facility] Orthopaedic Surgery [address] [facility] 2[address] [place] [address] Brian Rob MD Status post replacement of right shoulder joint (Primary Dx) from Last 3 Months Surgical History Surgery Date Site/Laterality Comments ANGIOPLASTY FLUORO GUIDED ASPIRATION OR INJECTION LARGE JOINT LEFT 06/13/2018 Left FLUORO GUIDED INJECTION SHOULDER LEFT 04/13/2019 Lef t SPINE SURGERY JOINT REPLACEMENT hip Medical History Medical History Date Comments Arthritis Hypertension Sleep apnea Spinal stenosis of lumbar region CAD (coronary artery disease) [place] (myocardial infarction) (HCC) GERD (gastroesophageal reflux disease) High cholesterol Type 2 diabetes mellitus (HCC) History of gout Basal cell carcinoma Pulmonary embolism (HCC) Family History Medical History Relation Name Comments Anesthesia problems Neg Hx Malig Hypertension Neg Hx Malig Hyperthermia Neg Hx Pseudochol deficiency Neg Hx Social History Tobacco Use Types Packs/Day Years [...] on file Legal Sex Male 3:25 AM PROCESSING TALC AND BORATE SUPERVISOR Gender Identity Not on file Sexual Orientation Not on file Obstetrics History Last Filed Vital Signs Vital Sign Reading Time Taken Comments Blood Pressure 118/70 05/26/2024 11:59 AM CDT Pulse 58 05/26/2024 11:59 AM CDT Temperature 36.5 C (97.7 F) 04/25/2022 4:00 AM PROCESSING TALC AND BORATE SUPERVISOR Respiratory Rate 18 04/25/2022 11:27 AM PROCESSING TALC AND BORATE SUPERVISOR Oxygen Saturation 96% 05/26/2024 11:59 AM CDT Inhaled Oxygen Concentration - - Weight 109.3 kg (241 lb) 05/26/2024 11:59 AM CDT Height 175.3 cm (5' 9 ) 05/26/2024 11:59 AM CDT Body Mass Index 35.59 05/26/2024 11:59 AM CDT Plan of Treatment Health Maintenance Due Date Last Done Comments Colon Cancer Screening-Colonoscopy 1950 Depression Screening 1950 Hepatitis C Screening 1948 Hepatitis B Screening 1966 Lung Cancer Screening 1998 Abdominal Aortic Aneurysm (A AA) Screen 2013 Well Visit 65+ 2013 Fall Risk Assessment 04/26/2023 04/25/2022 Covid-19 Vaccine (2023-2 5 season) 2023 12/07/2020, 05/09/2020, 04/18/2020 Influenza Vaccine (Season Ended) 2024 01/02/2021, 12/26/2020, 11/30/2019, Additional history exists DTaP/Tdap/Td Vaccine (2 - Td or Tdap) 11/29/2029 11/30/2019 Zoster Vaccine Completed 10/18/2017, 07/16/2017 Pneumococcal vaccine 65+ Completed 11/25/2018, 02/26 Medical Devices Implanted Type Area Elementary Reading Specialist Device Identifier Shelf Expiration Date Model / Serial / Lot [employer] Simplex P Radiopaque Full Dose Cement Bone Sterile 6191-1-010 - [id number] Implanted:Qty: 1 on 04/24/2022 by Brian Rob MD at [facility] Bone Cement Right: Shoulder [employer] 08/24/2024 6191-1-01 0 / / [id number] Stent Implanted:Qty: 3 Stent Heart Receptor Inc Cortiloc Augment Shoulder Right 15 D Large Component Glenoid [id number] - [id number] - [id number] Implanted:Qty: 1 on 04/24/2022 by Brian Rob MD at [facility] Right: Shoulder Receptor Inc 02/10/2026 [id number] / [id number] / [employer] Group Therapy Counselor Perform Low Offset Modular Humeral Head Ti [id number] - [id number] - [id number] Implanted:Qty: 1 on 04/24/2022 by Brian Rob MD at [facility] Right: Shoulder Receptor Inc 10/25/2025 [id number] / [id number] / [employer] Stem Perform Sz 3 Humeral [id number] - [id number] - [id number] Implanted:Qty: 1 on 04/24/2022 by Brian Rob MD at [facility] Right: Shoulder Acrinta 08/25/2026 [id number] / [id number] / [employer] Head Perform Cocr Modular Humeral [id number] - [id number] - [id number] Implanted:Qty: 1 on 04/24/2022 by Brian Rob MD at [facility] Right: Shoulder Receptor Inc 11/11/2024 [id number] / [id number] / Procedures Procedure Name Priority Date/Time Associated Diagnosis Comments BASIC METABOLIC PANEL Routine 06/12/2024 12:45 PM CDT Cardiomyopathy, ischemic POCT LIPID PANEL Routine 05/26/2024 12:0 1 PM CDT Coronary arteriosclerosis in [place] artery Hyperlipidemia LDL goal <70 XR SHOULDER RIGHT 2 OR MORE VIEWS Schedule Routine, Read Routine (OP Routine) 04/13/2024 2:02 PM PROCESSING TALC AND BORATE SUPERVISOR Status post replacement of right shoulder joint [...] - 06/13/2024 8:10 AM CDT Performed at: [address] [place] [id number] Armor Crewman: Janusz Guerin PhD, Phone: [phone] Royce Faith MD LAB BLOOD ORDERABLES Tiana l Result [facility] - 01 * POCT lipid panel (05/26/2024 12:01 PM CDT) [facility] Signature Cholesterol, POC 101 mg/dL HDL, POC 39 mg/dL Triglycerides, POC 89 mg/dL LDL Cholesterol POC 44 mg/dL Chol/HDL Ratio, POC 1.1 Non-HDL Cholesterol, POC 62 mg/dL Cholesterol Total, POC 101 mg/dL Capillary blood 05/26/2024 1 2:01 PM CDT Royce Faith MD POINT OF CARE TEST ORDERA BLES Final Result * XR Shoulder Right 2+ View (04/13/2024 2:02 PM PROCESSING TALC AND BORATE SUPERVISOR) Anatomical Region Laterality Modality Upper Extremities, Shoulder Right Comp uted Radiography 04/13/2024 2:30 PM PROCESSING TALC AND BORATE SUPERVISOR Impressions 04/13/2024 2:30 PM PROCESSING TALC AND BORATE SUPERVISOR Unchanged anatomic total right glenohumeral arthroplasty in expected position. Electronically signed by: Reece Flores M.D. Narrative 04/13/2024 2:30 PM PROCESSING TALC AND BORATE SUPERVISOR XR SHOULDER RIGHT 2 OR MORE VIEWS [...] Result from Last 3 Months Insurance MEDICARE [facility] Address: [address] [address] [facility] MEDICARE [facility] MEDICARE AARP Advance Directives For more information, please contact: [phone] * Full Code (Latest Code Status on File) Date Activated Date Inactivated Comments 04/24/2022 2:00 PM 04/25/2022 8:43 PM Care Teams Spinning Machine Tender Relationship Specialty Start Date End Date Efraín Mckeon MD [address] [place] [address] PCP - General 03/19/12 Troy Wallis MD [address] [place] [address] Surgeon Neurosurgery 11/01/21
--- OUTSIDE RECORDS SUMMARY | 2024-07-07 11:41 | XMS_ITS | Encounter Summary ---
Author Organization [employer] Address [address] [place] [address] Care Team Providers Care Veterinary Physiologist Name Role Phone Efraín Mckeon MD Primary Care Provider [phone]- [phone] Encounter Details Date Type Department Care Team (Late st Contact Info) Description 10/13/1999 Outpatient Historical [facility] Garett Hughes MD [address] [place] [address] [place] [address] Ulcer of esophagus (Primary Dx) Social History Tobacco Use Types Packs/Day Years Used Date Smoking Tobacco: Never Assessed Sex and Gender Information Value Date Recorded Sex Assigned at Not on file Legal Sex Male 4:16 AM QUALITY CONTROL DIRECTOR Gender Identity Not on file Sexual Orientation Not on file documented as of this encounter Plan of Treatment Not on file documented as of this encounter Visit Diagnoses Diagnosis Ulcer of esophagus- Primary documented in this encounter Care Teams Veterinary Physiologist Relationship Specialty Start Date End Date Efraín Mckeon MD PCP - General Family Practice 12/24/12 documented as of this encounter
--- OUTSIDE RECORDS SUMMARY | 2024-07-07 11:41 | XMS_ITS | Encounter Summary ---
Author Organization [employer] Address [address] [place] [address] Care Team Providers Care Supervisor Customer Services Name Role Phone Efraín Mckeon MD Primary Care Provider [phone]- [phone] Encounter Details Date Type Department Care Team (Late st Contact Info) Description 06/01/2002 Outpatient Historical [facility] Garett Hughes MD [address] [place] [address] [place] [address] ULCER OF ESOPHAGUS (Primary Dx) Social History Tobacco Use Types Packs/Day Years Used Date Smoking Tobacco: Never Assessed Sex and Gender Information Value Date Recorded Sex Assigned at Not on file Legal Sex Male 4:16 AM LIFE SCIENCE TEACHER Gender Identity Not on file Sexual Orientation Not on file documented as of this encounter Plan of Treatment Not on file documented as of this encounter Visit Diagnoses Diagnosis Ulcer of esophagus- Primary documented in this encounter Care Teams Supervisor Customer Services Relationship Specialty Start Date End Date Efraín Mckeon MD PCP - General Family Practice 12/24/12 documented as of this encounter
--- OUTSIDE RECORDS SUMMARY | 2024-07-07 11:41 | XMS_ITS | Encounter Summary ---
Author Organization [employer] Address [address] [place] [address] Care Team Providers Care Roller Inspector And Mender Name Role Phone Efraín Mckeon MD Primary Care Provider [phone] Encounter Details Date Type Department Care Team (Late st Contact Info) Description 2005 Outpatient Historical [facility] Garett Hughes MD [address] [place] [address] [place] [address] Heartburn (Primary Dx) Social History Tobacco Use Types Packs/Day Years Used Date Smoking Tobacco: Never Assessed Sex and Gender Information Value Date Recorded Sex Assigned at Not on file Legal Sex Male 4:16 AM LAP POLISHER Gender Identity Not on file Sexual Orientation Not on file documented as of this encounter Plan of Treatment Not on file documented as of this encounter Visit Diagnoses Diagnosis Heartburn- Primary documented in this encounter Care Teams Roller Inspector And Mender Relationship Specialty Start Date End Date Efraín Mckeon MD PCP - General Family Practice 12/24/12 documented as of this encounter
--- OUTSIDE RECORDS SUMMARY | 2024-07-07 11:42 | XMS_ITS | Encounter Summary ---
Author Organization [facility] Address [address] [place] [address] Care Team Providers Care Printing Gray Cloth Tender Name Role Phone Efraín Mckeon MD Primary Care Prov ider Troy Wallis MD Unavailable [phone] Encounter Details Date Type Department Care Team (Late st Contact Info) Description 07/07/2024 Telephone [facility] Cardiology [address] [place] [address] Royce Faith MD [facility] [place] [id number] Social History Tobacco Use Types Packs/Day Years Used Date Smoking Tobacco: Former Cigarettes 1.3 40 0 06/28/1978 - 06/28/2018 Smokeless Tobacco: Former Chew Quit: 06/28/2018 Alcohol Use Standard Drinks/Week Comments Yes 3 [...] on file 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 Occasional cough, no swelling in lower extremities. Pt spo2 in office 89-90%. Discussed with pt, pt will go to the ER for evaluation. documented in this encounter Plan of Treatment Not on file documented as of this encounter Visit Diagnoses Not on filedocumented in this encounter Care Teams Printing Gray Cloth Tender Relationship Specialty Start Date End Date Efraín Mckeon MD [address] [place] [address] PCP - General 03/19/12 Troy Wallis MD [address] [facility] [address] [place] [address] Surgeon Neurosurgery 11/01/21 documented as of this encounter
--- OUTSIDE RECORDS SUMMARY | 2024-07-07 11:42 | XMS_ITS ---
Author Organization [employer] Address [address] [facility]. [address] [place] [address] Care Team Providers Care Home Economist Consumer Service Name Role Phone Mike ROSADO, Efraín Primary Care Provider Germaine vailaZachary Lyles Unavailable [phone] REASON FOR VISIT Barretts esophagus determined by biopsy, 5ft10 231 diabetic, Hx of stents Encounters Encounter Location Date Provider Diagnosis [address] [address] 01/06/2024 Zachary Fisher Plan Of Treatment Next Appt Details Provider Name:Zachary Ramos Deepthi zhang, 07/13/2024 10:00:00 AM, [address] [place] [address], [phone], Progress Notes * Deric CHRISTIANSEN EDOB:1950 (73 yo M)Acc No.[id number]:01/06/2024 Patient: Deric MOSS Arti Provider: Praveena Fisher M.D. :1950 A ge:73 Y S ex:Male Date:01/06/2024 Address:[address], [facility] Pcp:Efraín Mckeon MD Subjective: * Chief Complaints: * 1 . Barretts esophagus determined by biopsy, 5ft10 231 diabetic, Hx of stents. * Medical History: Objective: * Vitals: Assessment: Plan: * Treatment: * Images: * Electronic signature of Ryne Fisher MD on 07/07/2024 at 11:41 AM CDT Sign off status: Pending * Provider: Praveena Fisher M.D. Date: 1 03/07/2023 Generated for Vera bolton/Giancarlo/Hetal on: 0 07/07/2024 11:41 AM CDT
--- OUTSIDE RECORDS SUMMARY | 2024-07-07 11:42 | XMS_ITS | Encounter Summary ---
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
--- NOTE | 2024-07-07 11:50 | ED.SOB ---
HPI - SOB/Dyspnea General Chief Complaint: Shortness of Breath/Dyspnea Stated Complaint: shortness of breath 1 month Time Seen by Provider: 07/07/24 11:50 Source: patient Mode of arrival: ambulatory Limitations: no limitations History of Present Illness HPI Narrative: 73 YEARS OLD WHITE MALE CAME WITH SHORTNESS OF BREATH ON EXERTION FOR ALMOST OVER 1 WEEK. IN THE ED PATIENT LYING DOWN IN BED, ASYMPTOMATIC. HISTORY OF DIABETES, HYPERTENSION, HYPERLIPIDEMIA, CORONARY STENTS X3, CURRENTLY ON BABY ASPIRIN ONCE A DAY. HE DENIES ANY FEVER, CHILLS, NAUSEA, VOMITING OR CHEST PAIN Related Data Home Medications Medication Instructions Recorded Confirmed Last Taken Type aspirin 81 mg tablet 81 mg PO DAILY 04/16/21 03/17/24 10/22/21 History Allergies Allergy/AdvReac Type Severity Reaction Status Date / Time No Known Allergies Allergy Verified 03/17/24 11:21 Review of Systems Review of Systems: All systems reviewed & are unremarkable except as noted in HPI and below PMFSH Past Medical History Medical History Pulmonary embolus Abnormal colonoscopy 05/14 Polyps Idiopathic gout, right wrist Former tobacco use GERD (gastroesophageal reflux disease) Coronary artery disease Hypertension Surgical History Surgical History History of lumbar laminectomy 01/15 L3-L5 History of total left hip arthroplasty 09/12 History of percutaneous coronary intervention Family History Family History Father Acute myocardial infarction Mother Diabetes mellitus Social History Social History Smoking packs per day: 1.5 Smoking cigarettes per day: 30.0 Years smoked: 45 Smoking pack-years: 67.50 Smoking status: Former smoker Tobacco type: cigarettes Smokeless tobacco user: chewing tobacco Second hand tobacco smoke exposure: No Smoking end date: 06/28/18 Alcohol intake: current Drinks per week: 14 Alcohol use details: 2 drinks per day Substance use: current Substance use type: marijuana Other substance usage details: GUMMIES 1-2 TIMES A MONTH Last use: 10/20/21 Living arrangements: with family Occupation/Education: retired Gender identity (if verbalized by the patient): Male Sexual Orientation (if Verbalized by the Patient): Straight or Heterosexual Spiritual care concerns: No Agree to blood products: Yes Exam Narrative: GENERAL APPEARANCE: WELL-DEVELOPED, WELL-NOURISHED SKIN: NORMAL COLOR, TRACE EDEMA BILATERAL HEAD: NORMOCEPHALIC, NONTRAUMATIC EYES: CLEAR CONJUNCTIVA ENT: OROPHARYNX NORMAL, EARS NORMAL, NOSE NORMAL NECK: SUPPLE, NONTENDER CHEST AND RESPIRATORY: AIRWAY PATENT, NO RESPIRATORY DISTRESS, NO ACCESSORY MUSCLE USE HEART: REGULAR RATE/RHYTHM ABDOMEN: SOFT, NONTENDER, NO ORGANOMEGALY, QUIET BOWEL SOUNDS VASCULAR: NORMAL PERIPHERAL PULSES, NORMAL CAPILLARY REFILL. MUSCULOSKELETAL: NORMAL RANGE OF MOTION, NONTENDER BACK NEUROLOGIC: ALERT AND ORIENTED ×3, BREAD ROOM HAND IS NORMAL TESTED, NO GROSS MOTOR DEFICIT Course Consultations Consultation #1: MITCH/NURSE PRACTITIONER FOR ELECTRIC METER REPAIRER HELPER/DR. RAE ACCEPTED PATIENT CONSULT Date: 07/07/24 Vital Signs Vital signs: Vital Signs Temperature 36.8 C 07/07/24 11:25 Pulse Rate 67 07/07/24 11:25 Respiratory Rate 18 07/07/24 11:25 Blood Pressure 134/97 H 07/07/24 11:25 Pulse Oximetry 96 07/07/24 11:25 Oxygen Delivery Room Air 07/07/24 11:25 Temperature 36.6 C 07/07/24 11:36 Pulse Rate 67 07/07/24 11:36 Respiratory Rate 16 07/07/24 11:36 Blood Pressure 138/83 07/07/24 11:36 Pulse Oximetry 94 07/07/24 11:36 Oxygen Delivery Room Air 07/07/24 11:34 MDM - SOB/Dyspnea MDM Narrative Medical decision making narrative: SHORTNESS OF BREATH ON EXERTION VITAL SIGNS ARE STABLE PHYSICAL EXAMINATION SHOWING SLIGHT DIMINUTION OF AIR ENTRY BILATERALLY, TRACE EDEMA LOWER EXTREMITY BILATERALLY DIFFERENTIAL DIAGNOSIS INCLUDE ANGINA EQUIVALENT, CHF, PNEUMONIA, PLEURAL EFFUSION, DEHYDRATION, ELECTROLYTE IMBALANCE BLOOD WORKUP TODAY INCLUDES CBC, CMP, TROPONIN, PROBNP SHOWED TROPONIN 0.107, PROBNP 5300 OTHERWISE INSIGNIFICANT CHEST X-RAY SHOWED ATELECTASIS, PULMONARY EDEMA VERSUS PNEUMONIA EKG ON ARRIVAL SHOWED SINUS BRADYCARDIA AT 57 BEATS PER MINUTE, LEFT BUNDLE-BRANCH BLOCK NO PREVIOUS EKG AVAILABLE FOR COMPARED DIAGNOSIS CHF, ELEVATED TROPONIN, ADMIT TO HOSPITALIST CONSULT DR. TAFOYA Differential Diagnosis Differential diagnosis: Likely other ( ABOVE) Medical Records Attestation: I reviewed the patient's medical records. Lab Data Attestation: I reviewed the patient's lab results. 07/07/24 12:33 07/07/24 12:33 Labs: Lab Results 07/07/24 Range/Units 12:33 WBC 7.6 (4.5-10.0) K/mm3 RBC 4.42 L (4.6-6.20) M/mm3 Hgb 13.4 L (14.0-18.0) g/dL Hct 42.1 (42.0-52.0) % MCV 95.2 (80-100) fl MCH 30.3 (26-34) pg MCHC 31.8 L (32-36) g/dl RDW 14.2 (11.5-14.5) % Plt Count 157 (150-375) k/mm3 MPV 11.6 H (7.4-10.4) fl Immature Gran % (Auto) 0.1 (0-0.5) % Neut % (Auto) 80.2 H (45.5-73.1) % Lymph % (Auto) 9.2 L (18.3-44.2) % Patrick % (Auto) 9.6 H (2.6-8.5) % Eos % (Auto) 0.5 (0-4.4) % Baso % (Auto) 0.4 (0.2-1.2) % Lymph # (Auto) 0.70 L (0.9-3.2) K/mm3 Patrick # (Auto) 0.7 H (0.1-0.6) K/mm3 Eos # (Auto) 0.0 (0-0.3) K/mm3 Baso # (Auto) 0.0 (0.0-0.1) K/mm3 Abs Immat Gran (auto) 0.01 (0.00-0.031) K/mm3 Absolute Neuts (auto) 6.1 (1.3-6.7) K/mm3 Absolute Nucleated RBC 0.000 (0.0-0.012) K/mm3 Nucleated RBC % 0.0 (0.0-0.2) % PT 14.6 (11.1-14.7) Seconds INR 1.1 APTT 27.8 (22.3-36.8) Seconds Sodium 144 (137-145) mmol/L Potassium 3.6 (3.4-5.0) mmol/L Chloride 110 H (98-107) mmol/L Carbon Dioxide 24 (22-30) mmol/L Anion Gap 10 (4-12) mmol/L BUN 14 D (9-20) mg/dL Creatinine 0.71 (0.7-1.3) mg/dL Estim Creat Clear Calc 95 ml/min Estimated GFR > 60 (59 - ) Glucose 85 (65-110) mg/dL Calcium 9.3 (8.4-10.2) mg/dL Magnesium 2.0 (1.6-2.3) mg/dL Total Bilirubin 1.3 (0.2-1.3) mg/dL AST 34 (17-59) U/L ALT 32 (6-50) U/L Alkaline Phosphatase 44 (38-126) U/L Troponin I 0.107 H* (0.000-0.034) ng/mL NT-Pro-B Natriuret Pep 5300 H (19.9-100) pg/mL Total Protein 7.0 (6.3-8.2) g/dL Albumin 4.1 (3.5-5.1) g/dL ECG Data EKG #1: Attestation: I personally reviewed and interpreted this ECG as follows: ECG completion date: 07/07/24 Interpretation: SINUS BRADYCARDIA AT 57 BEATS PER MINUTE, INTERMITTENT OCULAR CONDUCTION DELAY, INFERIOR MYOCARDIAL INFARCTION OF INDETERMINATE AGE, ABNORMAL EKG, LEFT BUNDLE-BRANCH BLOCK Critical Care Time Critical Care Time Critical Care Time: Yes Total Critical Care Time: 30 Discharge Plan Discharge Clinical Impression: Dyspnea, CHF (congestive heart failure), Elevated troponin Patient Disposition: Still a Patient Condition: Stable Additional Instructions: ADMIT TO HOSPITALIST Patient Language: Spanish Prescriptions: No Action aspirin 81 mg Tablet 81 mg PO DAILY (DME) Accu-Chek Guide test strips Strip See Rx Instructions .Route Qty: 100 2RF Rx Instructions: Use 1 daily to test blood glucose amlodipine 5 mg tablet 5 mg PO DAILY Qty: 90 1RF Patient Comments: QAM nebivolol 20 mg tablet 20 mg PO DAILY Qty: 90 1RF Patient Comments: QAM metformin 500 mg tablet extended release 24 hr 500 mg PO BID Qty: 180 2RF Patient Comments: QAM hydrochlorothiazide 25 mg tablet See Rx Instructions .ROUTE .COMPLEX Qty: 90 0RF Dose Instruction: TAKE 1 TABLET BY MOUTH EVERY DAY Rx Instructions: TAKE 1 TABLET BY MOUTH EVERY DAY meloxicam 15 mg tablet 15 mg PO .COMPLEX PRN (Reason: pain) Qty: 90 0RF Rx Instructions: 15 mg orally PRN; (DME) lancets [Accu-Chek Softclix Lancets] Misc See Rx Instructions .ROUTE .COMPLEX Qty: 100 1RF Dose Instruction: USE TO CHECK BLOOD SUGARS ONCE DAILY Rx Instructions: USE TO CHECK BLOOD SUGARS ONCE DAILY sacubitril-valsartan [Entresto] 49-51 mg tablet 1 tablet PO BID Qty: 180 1RF rosuvastatin 40 mg tablet 40 mg PO DAILY Qty: 90 3RF pantoprazole 40 mg tablet,delayed release (DR/EC) See Rx Instructions .ROUTE .COMPLEX Qty: 90 3RF Dose Instruction: TAKE 1 TABLET BY MOUTH AT BEDTIME Rx Instructions: TAKE 1 TABLET BY MOUTH AT BEDTIME Follow-up/Referrals: Efraín Mckeon MD [Primary Care Provider] -
--- NOTE | 2024-07-07 12:08 | PC.NURSE ---
Two attempts made for IV access and blood draw with no success, kiln labourer aware and will attempt blood draw.
--- NOTE | 2024-07-07 12:29 | PC.NURSE ---
another RN attempted twice for iv access and lab draw, with no success. Another nurse is attempting at this time.
[2024-07-07 12:44] LABS: Basophils Percent Auto 0.4 % (0.2-1.2); Eosinophils Percent Auto 0.5 % (0-4.4); Hematocrit 42.1 % (42.0-52.0); Hemoglobin 13.4 g/dL (14.0-18.0); Immature Granulocyte Absolute 0.01 K/mm3 (0.00-0.031); Immature Granulocyte Percent A 0.1 % (0-0.5); Lymphocytes Percent Auto 9.2 % (18.3-44.2); Mean Corpuscular HGB Conc 31.8 g/dl (32-36); Mean Corpuscular Hemoglobin 30.3 pg (26-34); Mean Corpuscular Volume 95.2 fl (80-100); Mean Platelet Volume 11.6 fl (7.4-10.4); Monocytes Absolute Auto 0.7 K/mm3 (0.1-0.6); Monocytes Percent Auto 9.6 % (2.6-8.5); Neutrophils Absolute Auto 6.1 K/mm3 (1.3-6.7); Neutrophils Percent Auto 80.2 % (45.5-73.1); Platelet Count Result 157 k/mm3 (150-375); Red Blood Count 4.42 M/mm3 (4.6-6.20); Red Cell Distribution Width 14.2 % (11.5-14.5); White Blood Count 7.6 K/mm3 (4.5-10.0)
[2024-07-07 12:55] LABS: INR 1.1; Prothrombin Time 14.6 Seconds (11.1-14.7)
[2024-07-07 12:56] LABS: Partial Thromboplastin Time 27.8 Seconds (22.3-36.8)
--- NOTE | 2024-07-07 14:08 | PC.NURSE ---
patient ambulated to the bathroom at this time, patient ambulated with a steady gait and no complaints of dizziness and no obvious respiratory distress.
[2024-07-07 14:26] LABS: Alanine Aminotransferase 32 U/L (6-50); Albumin Level 4.1 g/dL (3.5-5.1); Alkaline Phosphatase 44 U/L (38-126); Anion Gap 10 mmol/L (4-12); Aspartate Amino Transferase 34 U/L (17-59); Bilirubin,Total 1.3 mg/dL (0.2-1.3); Blood Urea Nitrogen 14 mg/dL (9-20); Calcium 9.3 mg/dL (8.4-10.2); Carbon Dioxide 24 mmol/L (22-30); Chloride 110 mmol/L (98-107); Estimated CRCL calculation 95 ml/min; Estimated Glomerular Filt Rate > 60; Glucose 85 mg/dL (65-110); Potassium 3.6 mmol/L (3.4-5.0); Sodium 144 mmol/L (137-145)
[2024-07-07 14:44] LABS: NT Pro B Type Natriuretic Pept 5300 pg/mL (19.9-100); Troponin I 0.107 ng/mL (0.000-0.034)
[2024-07-07 15:37] LABS: Troponin I 0.177 ng/mL (0.000-0.034)
[2024-07-07] MEDS: FUROSEMIDE INJ 40 MG/4 ML VIAL IV PUSH (15:54)
[2024-07-07] MEDS: ENOXAPARIN 120 MG/0.8 ML SYRINGE 110 MG SUB-Q (15:54)
--- NOTE | 2024-07-07 16:12 | P.HP_ITS ---
H&P: HPI History of Present Illness Date/Time: 07/07/24 16:12 Chief Complaint: Shortness of breath Narrative: 73-year-old male past medical history of hypertension, CAD, gout, pulmonary embolism presents to the hospital with shortness of breath increasing over last week. Patient states that he has no known history of CHF. Patient states that he sleeps on a raised bed. He states due to severe increased shortness of breath today he presented to the hospital. He denies cough, fever chills. Lab work in the ED shows anemia at 13.4, troponin of 0.177, BNP of 5300, chest x-ray shows Scattered linear and interstitial opacities in the bilateral mid and lower lung zones likely combination of atelectasis and mild pulmonary edema versus less likely pneumonia. Patient was given Lasix in the ED an aspirin with weight based Lovenox. Review of Systems Review of Systems: 12 systems were reviewed and are negativ e except for as per HPI. [facility] Past Medical History Medical History Pulmonary embolus Abnormal colonoscopy 05/14 Polyps Idiopathic gout, right wrist Former tobacco use GERD (gastroesophageal reflux disease) Coronary artery disease Hypertension Surgical History Surgical History History of lumbar laminectomy 01/15 L3-L5 History of total left hip arthroplasty 09/12 History of percutaneous coronary intervention Family History Family History Father Acute myocardial infarction Mother Diabetes mellitus Social History Social History Smoking packs per day: 1.5 Smoking cigarettes per day: 30.0 Years smoked: 40 Smoking pack-years: 60.00 Smoking status: Former smoker Tobacco type: cigarettes Smokeless tobacco user: chewing tobacco Second hand tobacco smoke exposure: No Smoking end date: 06/28/18 Alcohol intake: current Drinks per week: 14 Alcohol use details: 2 drinks per day Substance use: never Substance use type: marijuana Other substance usage details: GUMMIES 1-2 TIMES A MONTH Last use: 10/20/21 Do You Feel Safe in your Home?: Yes Lack of Transportation: No Lack of Food: Never True Current Housing: I Have Housing Concerned About Future Housing: No Difficulty Paying Gas/Electric Bills: No Difficulty Paying for Meds: No Currently Unemployed: No Education: High School Diploma/GED Difficulty w/ Childcare or Family Care: No Living arrangements: with family Occupation/Education: retired Gender identity (if verbalized by the patient): Male Sexual Orientation (if Verbalized by the Patient): Straight or Heterosexual Spiritual care concerns: No Agree to blood products: Yes Meds Home Medications and Allergies Home Medications Medication Instructions Recorded Confirmed Type aspirin 81 mg tablet 81 mg PO DAILY 04/16/21 07/07/24 History blood sugar diagnostic (Accu-Chek #100 ea 07/23/23 07/07/24 Rx Guide test strips) nebivolol 20 mg tablet 20 mg PO DAILY #90 tabs 02/03/24 07/07/24 Rx metformin 500 mg tablet,extended 500 mg PO BID #180 tabs 03/09/24 07/07/24 Rx release 24 hr lancets (Accu-Chek Softclix #100 ea 04/09/24 07/07/24 Rx Lancets) sacubitril 49 mg-valsartan 51 mg 1 tablet PO BID #180 tabs 04/30/24 07/07/24 Rx tablet (Entresto) rosuvastatin 40 mg tablet 40 mg PO DAILY #90 tabs 06/15/24 07/07/24 Rx pantoprazole 40 mg tablet,delayed See Rx Instructions .Route 06/16/24 07/07/24 Rx release .COMPLEX #90 tabs empagliflozin 10 mg tablet 10 mg PO DAILY 07/07/24 07/07/24 History (Jardiance) ketorolac 0.5 % eye drops 1 drp LEFT EYE TID 07/07/24 07/07/24 History meloxicam 15 mg tablet 15 mg PO DAILY PRN pain 07/07/24 07/07/24 History prednisolone acetate 1 % eye 1 drp LEFT EYE TID 07/07/24 07/07/24 History drops,suspension Allergies Allergy/AdvReac Type Severity Reaction Status Date / Time No Known Allergies Allergy Verified 07/07/24 16:34 Vital Signs Vital Signs - 24 hr 07/07/24 11:25 07/07/24 11:34 07/07/24 11:36 Temperature 98.2 F 97.8 F Pulse Rate 67 67 Respiratory Rate 18 16 Blood Pressure 134/97 H 138/83 Pulse Oximetry 96 94 Oxygen Delivery Room Air Room Air 07/07/24 16:10 Temperature Pulse Rate 63 Respiratory Rate 18 Blood Pressure 147/94 H Pulse Oximetry 95 Oxygen Delivery Exam Narrative: General: well appearing, appears stated age. HEENT: normocephalic, atraumatic. Mucous membranes moist. EOMI, PERRLA, bilateral sclera anicteric, no conjunctival injection. Neck supple without JVD, lymphadenopathy, or bruit. Respiratory: clear to ascultation bilaterally. No rales/rhonic/wheezes. Cardiovascular: Regular rate and rhythm, normal S1-S2 upon ascultation. No murmurs, rubs, or clicks. PMI is nondisplaced, capillary refill less than 3 second. Abdomen: Soft, round, no pulsatile masses, nondistended and nontender. No rebound, no guarding. No CVA tenderness, no hepatosplenomegaly. Bowel sounds present to all four quadrants. No high pitch or tinkling sounds, resonant to percussion. Extremities: No cyanosis, clubbing, or edema present. Pulses are palpable 2/2. Active ROM to all four extremities. Neuro: Alert and orientated x 4. PERRLA. Cranial nerves 2-12 intact without focal deficit. Skin: Warm, dry, and intact, without rash, erythema, or lesion. Psych: pleasant, cooperative, normal speech, normal affect, no hallucinations, no dysarthia H&P: Results Labs Labs: Short CBC 07/07/24 Range/Units 12:33 WBC 7.6 (4.5-10.0) K/mm3 Hgb 13.4 L (14.0-18.0) g/dL Hct 42.1 (42.0-52.0) % Plt Count 157 (150-375) k/mm3 BMP 07/07/24 12:33 Sodium 144 Potassium 3.6 Chloride 110 H Carbon Dioxide 24 BUN 14 D Creatinine 0.71 Glucose 85 Calcium 9.3 Cardiac Enzymes 07/07/24 07/07/24 Range/Units 12:33 15:03 Troponin I 0.107 H* 0.177 H* D (0.000-0.034) ng/mL Liver Function 07/07/24 Range/Units 12:33 Total Bilirubin 1.3 (0.2-1.3) mg/dL AST 34 (17-59) U/L ALT 32 (6-50) U/L Alkaline Phosphatase 44 (38-126) U/L Albumin 4.1 (3.5-5.1) g/dL Assessment and Plan Assessment and plan (1) CHF (congestive heart failure): Code(s): I50.9 - Heart failure, unspecified Status: Acute Assessment and Plan: Cardiology consulted Pulmonary edema seen on chest x-ray Echocardiogram pending IV Lasix Fluid restriction Dietitian (2) Elevated troponin: Code(s): R79.89 - Other specified abnormal findings of blood chemistry Status: Acute Assessment and Plan: Could be due to hypoxia versus ACS Interventional cardiology consulted Therapeutic Lovenox Trend troponin EKG p.r.n. for chest pain Telemetry monitoring Heart healthy diet NPO midnight for possible procedure tomorrow (3) Hypertension: Code(s): I10 - Essential (primary) hypertension Status: Acute Assessment and Plan: Continue antihypertensives (4) Type 2 diabetes mellitus: Code(s): E11.9 - Type 2 diabetes mellitus without complications Status: Acute Assessment and Plan: Diabetic diet Accu-Cheks a.cPj HS SSI Continue Jardiance due to cardiac protective factors Hold home metformin Quality VTE Prophylaxis VTE prophylaxis: mechanical ordered and pharmacologic ordered Hospitalist MIPS Advance Care Plan I have confirmed that the patient's Advanced Care Plan is present, code status is documented, or surrogate decision maker is listed in patient medical record.: Yes Medication Reconciliation I have utilized all available resources to obtain, update and review the patients current medications (includes all prescriptions, OTC, herbals, cannabis, and nutritional supplements).: Yes
--- OUTSIDE RECORDS SUMMARY | 2024-07-07 16:30 | XMS_ITS | Encounter Summary ---
Author Organization [facility] Address [address] [place] [address] Care Team Providers Care Ship Wirer Name Role Phone Efraín Mckeon MD Primary Care Prov ider Troy Wallis MD Unavailable [phone] Encounter Details Date Type Department Care Team (Late st Contact Info) Description 07/07/[address] 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
--- OUTSIDE RECORDS SUMMARY | 2024-07-07 16:30 | XMS_ITS | Encounter Summary ---
Author Organization [facility] Address 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
--- OUTSIDE RECORDS SUMMARY | 2024-07-07 16:30 | XMS_ITS | Encounter Summary ---
Author Organization [facility] Address 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
--- OUTSIDE RECORDS SUMMARY | 2024-07-07 16:30 | XMS_ITS | Clinical Summary ---
Author Organization [facility] Address [address] [place] [address] Phone Care Team Providers Care Stranding Supervisor Name Role Phone Efraín Mckeon MD Primary Care Provider [phone]- [phone] Allergies No known active allergies Medications fosinopril [...] comfort. 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
--- OUTSIDE RECORDS SUMMARY | 2024-07-07 16:30 | XMS_ITS | Encounter Summary ---
Author Organization [facility] Address 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
--- OUTSIDE RECORDS SUMMARY | 2024-07-07 16:30 | XMS_ITS | Referral Summary ---
Author Organization [facility] [address] [place] [address] [address] [place] [address] 162 [place] [address] Care Team Providers Care Cyber Forensic Specialist Name Role Phone Efraín Mckeon MD Primary Care Prov ider Troy Wallis MD Unavailable Encounters Date Type Department Care Team Description 07/07/[address] [facility] Cardiology [address] [place] [address] [address] [place] [address] Royce Faith MD 06/15/2024 Results Follow-Up [facility] Cardiology [address] [place] [address] [address] [place] [address] Royce Faith MD 05/26/2024 11:30 AM CDT Office Visit [facility] Cardiology [address] [place] [address] [address] [place] [address] Royce Faith MD Chronic systolic congestive heart failure (HCC) (Primary Dx); Coronary arteriosclerosis in [place] artery; Hyperlipidemia LDL goal <70; Primary hypertension; Cardiomyopathy, ischemic; Obstructive sleep apnea syndrome; Severe obesity (HCC) 04/13/2024 1:46 PM WEAVER AXMINSTER - 04/13/2024 11:59 PM WEAVER AXMINSTER Hospital Encounter [facility] [address] [place] [address] Brian Rob MD Status post replacement of right shoulder joint Discharge Disposition: Discharge to home or self care 04/13/2024 1:40 PM WEAVER AXMINSTER Office Visit [facility] Orthopaedic Surgery [address] [facility] [address] [place] [address] Brian Rob MD Status post [...] ns:Hyperlipidem ia, unspecified,Ath erosclerotic heart disease of [place] coronary artery without angina pectoris TAKE 1 [...] (04/06/2022): Added automatically from request for surgery [id number] Cardiomyopathy, ischemic 12/07/2021 Spinal stenosis of lumbar re gion with neurogenic claudication 10/26/2021 Overview (10/26/2021): Added automatically from request for surgery [id number] Chronic systolic congestive heart failure 2021 History of tobacco use 09/14/2021 Cardiomyopathy 02/11/2019 Preoperative cardiovascular examination 08/09/19 Primary osteoarthritis of left hip 08/01/2018 Overview (08/01/2018): Added automatically from request for surgery [id number] Atypical chest pain 10/01/2016 Hyperlipidemia LDL goal <70 10/14/2015 Overview (06/01/2016): Hyperlipidemia LDL goal <70 Coronary arteriosclerosis in [place] artery 10/13 Overview (06/01/2016): Coronary artery disease involving [place] coronary artery of [place] heart without angina pectoris Adiposity 11/18/2013 Overview [...] on file Legal Sex Male 3:25 AM WEAVER AXMINSTER Gender Identity Not on file Sexual Orientation Not on file Last Filed Vital Signs Vital Sign Reading Time Taken Comments Blood Pressure 118/70 05/26/2024 11:59 AM CDT Pulse 58 05/26/2024 11:59 AM CDT Temperature 36.5 C (97.7 F) 04/25/2022 4:00 AM WEAVER AXMINSTER Respiratory Rate 18 04/25/2022 11:27 AM WEAVER AXMINSTER Oxygen Saturation 96% 05/26/2024 11:59 AM CDT Inhaled Oxygen Concentration - - Weight 109.3 kg (241 lb) 05/26/2024 11:59 AM CDT Height 175.3 cm (5' 9 ) 05/26/2024 11:59 AM CDT Body Mass Index 35.59 05/26/2024 11:59 AM CDT Plan of Treatment Not on file Medical Devices Implanted Type Area Belt Machine Operator Device Identifier Shelf Expiration Date Model / Serial / Lot [employer] Simplex P Radiopaque Full Dose Cement Bone Sterile 6191-1-010 - [id number] Implanted:Qty: 1 on 04/24/2022 by Brian Rob MD at [facility] Bone Cement Right: Shoulder [employer] 08/24/2024 6191-1-01 0 / / [id number] Stent Implanted:Qty: 3 Stent Heart [employer] Cortiloc Augment Shoulder Right 15 D Large Component Glenoid [id number] - [id number] - [id number] Implanted:Qty: 1 on 04/24/2022 by Brian Rob MD at [facility] Right: Shoulder [employer] 02/10/2026 [id number] / [id number] / [employer] Personnel Representative Perform Low Offset Modular Humeral Head Ti [id number] - [id number] - [id number] Implanted:Qty: 1 on 04/24/2022 by Brian Rob MD at [facility] Right: Shoulder [employer] 10/25/2025 [id number] / [id number] / [employer] Stem Perform Sz 3 Humeral [id number] - [id number] - [id number] Implanted:Qty: 1 on 04/24/2022 by Brian Rob MD at [facility] Right: Shoulder [employer] 08/25/2026 [id number] / [id number] / [employer] Head Perform Cocr Modular Humeral [id number] - [id number] - [id number] Implanted:Qty: 1 on 04/24/2022 by Brian Rob MD at [facility] Right: Shoulder [employer] 11/11/2024 [id number] / [id number] / Procedures Procedure Name Priority Date/Time Associated Diagnosis Comments BASIC METABOLIC PANEL Routine 06/12/2024 12:45 PM CDT Cardiomyopathy, ischemic POCT LIPID PANEL Routine 05/26/2024 12:0 1 PM CDT Coronary arteriosclerosis in [place] artery Hyperlipidemia LDL goal <70 XR SHOULDER RIGHT 2 OR MORE VIEWS Schedule Routine, Read Routine (OP Routine) 04/13/2024 2:02 PM WEAVER AXMINSTER Status post replacement of right shoulder joint [...] 06/13/2024 8:10 AM CDT Performed at: - [address] [id number] Supervisor Feed Mill: Janusz Guerin PhD, Phone: [phone] us Royce Faith MD LAB BLOOD ORDERABLES [...] Shoulder Right 2+ View (04/13/2024 2:02 PM WEAVER AXMINSTER) Anatomical Region Laterality Modality Upper Extremities, Shoulder Right Comp uted Radiography 04/13/2024 2:30 PM WEAVER AXMINSTER Impressions 04/13/2024 2:30 PM WEAVER AXMINSTER Unchanged anatomic total right glenohumeral arthroplasty in expected position. Electronically signed by: Reece Flores M.D. Narrative 04/13/2024 2:30 PM WEAVER AXMINSTER XR SHOULDER RIGHT 2 OR MORE VIEWS [...] Result from Last 3 Months Insurance [facility] [place] [address] [facility] Advance Directives For more information, please contact: [phone] * Full Code (Latest Code Status on File) Date Activated Date Inactivated Comments 04/24/2022 2:00 PM 04/25/2022 8:43 PM Care Teams Cyber Forensic Specialist Relationship Specialty Start Date End Date Efraín Mckeon MD [address] [place] [address] PCP - General 03/19/12 Troy Wallis MD [address] [facility] [address] [place] [address] Surgeon Neurosurgery 11/01/21
--- OUTSIDE RECORDS SUMMARY | 2024-07-07 16:30 | XMS_ITS | Clinical Summary ---
Author Organization [facility] [address] Address [address] [place] [address] Care Team Providers Care Precast Concrete Products Installer Name Role Phone Efraín Mckeon MD Primary Care Prov ider Troy Wallis MD Unavailable [phone] Allergies No known active allergies Medications pantoprazole [...] ns:Hyperlipidem ia, unspecified,Ath erosclerotic heart disease of [place] coronary artery without angina pectoris TAKE 1 [...] (04/06/2022): Added automatically from request for surgery [id number] Cardiomyopathy, ischemic 12/07/2021 Spinal stenosis of lumbar re gion with neurogenic claudication 10/26/2021 Overview (10/26/2021): Added automatically from request for surgery [id number] Chronic systolic congestive heart failure 2021 History of tobacco use 09/14/2021 Cardiomyopathy 02/11/2019 Preoperative cardiovascular examination 08/09/19 19 Primary osteoarthritis of left hip 08/01/2018 Overview (08/01/2018): Added automatically from request for surgery [id number] Atypical chest pain 10/01/2016 Hyperlipidemia LDL goal <70 10/14/2015 Overview (06/01/2016): Hyperlipidemia LDL goal <70 Coronary arteriosclerosis in [place] artery 10/13 Overview (06/01/2016): Coronary artery disease involving [place] coronary artery of [place] heart without angina pectoris Adiposity 11/18/2013 Overview [...] Type Department Care Team Description 07/07/2024 Telephone [facility] Cardiology [address] [place] [address] [place] [address] Royce Faith MD 06/15/2024 Results Follow-Up [facility] Medical [facility] Cardiology [address] [place] [address] [address] [place] [address] Royce Faith MD 05/26/2024 11:30 AM CDT Office Visit [facility] Cardiology [address] [place] [address] [address] Royce Faith MD Chronic systolic congestive heart failure (HCC) (Primary Dx); Coronary arteriosclerosis in circle artery; Hyperlipidemia LDL goal <70; Primary hypertension; Cardiomyopathy, ischemic; Obstructive sleep apnea syndrome; Severe obesity (HCC) 04/13/2024 1:46 PM NIGHT NURSE - 04/13/2024 11:59 PM NIGHT NURSE Hospital Encounter [facility] [address] [place] [address] Brian Rob MD Status post replacement of right shoulder joint Discharge Disposition: Discharge to home or self care 04/13/2024 1:40 PM NIGHT NURSE Office Visit [facility] Orthopaedic Surgery [address] [facility] [address] [place] [address] Brian Rob MD Status post replacement of [...] of lumbar region CAD (coronary artery disease) RI (myocardial infarction) (HCC) GERD (gastroesophageal reflux disease) [...] on file Legal Sex Male 3:25 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 Gender Identity Not on file Sexual Orientation Not on file Obstetrics History Last Filed Vital Signs Vital Sign Reading Time Taken Comments Blood Pressure 118/70 05/26/2024 11:59 AM CDT Pulse 58 05/26/2024 11:59 AM CDT Temperature 36.5 C (97.7 F) 04/25/2022 4:00 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 Respiratory Rate 18 04/25/2022 11:27 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 Oxygen Saturation 96% 05/26/2024 11:59 AM CDT [...] 11/25/2018, 02/26 Medical Devices Implanted Type Area Biological Science Technician Device Identifier Shelf Expiration Date Model / Serial / Lot [place] [employer] Simplex P Radiopaque Full Dose Cement Bone Sterile 6191-1-010 - [id number] Implanted:Qty: 1 on 04/24/2022 by Brian Rob MD at [facility] Bone Cement Right: Shoulder [employer] 08/24/2024 6191-1-01 0 / / [id number] Stent Implanted:Qty: 3 Stent Heart [employer] Cortiloc Augment Shoulder Right 15 D Large Component Glenoid [id number] - [id number] - [id number] Implanted:Qty: 1 on 04/24/2022 by Brian Rob MD at [facility] Right: Shoulder [employer] Inc 02/10/2026 [id number] / [id number] / [employer] Controls Tester Perform Low Offset Modular Humeral Head Ti [id number] - [id number] - [id number] Implanted:Qty: 1 on 04/24/2022 by Brian Rob MD at [facility] Right: Shoulder [employer] 10/25/2025 [id number] / [id number] / [employer] Technology [employer] Stem Perform Sz 3 Humeral Dwx3ss - [id number] - [id number] Implanted:Qty: 1 on 04/24/2022 by Brian Rob MD at [facility] Right: Shoulder [employer] 08/25/2026 [id number] / [id number] / [employer] Technology [employer] Head Perform Cocr Modular Humeral [id number] - [id number] - [id number] Implanted:Qty: 1 on 04/24/2022 by Brian Rob MD at [facility] Right: Shoulder [employer] 11/11/2024 [id number] / [id number] / Procedures Procedure Name Priority Date/Time Associated Diagnosis Comments BASIC METABOLIC PANEL Routine 06/12/2024 12:45 PM CDT Cardiomyopathy, ischemic POCT LIPID PANEL Routine 05/26/2024 12:0 1 PM CDT Coronary arteriosclerosis in circle artery Hyperlipidemia LDL goal <70 XR SHOULDER RIGHT 2 OR MORE VIEWS Schedule Routine, Read Routine (OP Routine) 04/13/2024 2:02 PM NIGHT NURSE Status post replacement of right shoulder joint [...] - 06/13/2024 8:10 AM CDT Performed at: [address] [place] [id number] Sr. Payroll Manager: Janusz Guerin PhD, Phone: [phone] Royce Faith MD LAB BLOOD ORDERABLES Tiana l Result [facility] - 01 * POCT lipid panel (05/26/2024 12:01 PM CDT) [facility] Signature Cholesterol, POC 101 mg/dL HDL, POC 39 mg/dL Triglycerides, POC 89 mg/dL LDL Cholesterol POC 44 mg/dL Chol/HDL Ratio, POC 1.1 Non-HDL Cholesterol, POC 62 mg/dL Cholesterol Total, POC 101 mg/dL Capillary blood 05/26/2024 1 2:01 PM CDT Royce Faith MD POINT OF CARE TEST ORDERA BLES Final Result * XR Shoulder Right 2+ View (04/13/2024 2:02 PM NIGHT NURSE) Anatomical Region Laterality Modality Upper Extremities, Shoulder Right Comp uted Radiography 04/13/2024 2:30 PM NIGHT NURSE Impressions 04/13/2024 2:30 PM NIGHT NURSE Unchanged anatomic total right glenohumeral arthroplasty in expected position. Electronically signed by: Reece Flores M.D. Narrative 04/13/2024 2:30 PM NIGHT NURSE XR SHOULDER RIGHT 2 OR MORE VIEWS [...] Result from Last 3 Months Insurance [facility]IC[facility] MEDICARE [facility] MEDICARE AARP Advance Directives For more information, please contact: [phone] * Full Code (Latest Code Status on File) Date Activated Date Inactivated Comments 04/24/2022 2:00 PM 04/25/2022 8:43 PM Care Teams Precast Concrete Products Installer Relationship Specialty Start Date End Date Efraín Mckeon MD [address] [place] [address] PCP - General 03/19/12 Troy Wallis MD [address] [facility] [address] [place] [address] Surgeon Neurosurgery 11/01/21
--- OUTSIDE RECORDS SUMMARY | 2024-07-07 16:30 | XMS_ITS | Continuity of Care Document ---
Author Organization formerly [facility] Address [address] [place] [address] Phone Care Team Providers Care Manager Cosmetics Name Role Phone Willingham, Stepan Unavailable Unavailable Procedures Procedure Date Eye Exam Established Pt Ophthalmoscopy, Subsequent Optic Nerve Topography Eye Exam & Treatment Eye Exam & Treatment Ophthalmoscopy, Subsequent Optic Nerve Topography Injection Eye Drug Bevacizumab (Avastin) Ophthalmoscopy, Subsequent Injection Eye Drug Bevacizumab (Avastin) Ophthalmoscopy, Subsequent Eye Exam & Treatment Ophthalmoscopy, Subsequent Optic Nerve Topography Injection Eye Drug Bevacizumab (Avastin) Eye Exam & Treatment Ophthalmoscopy, Subsequent Optic Nerve Topography Office Consultation Injection Eye Drug Bevacizumab (Avastin) Ophthalmoscopy Optic Nerve Topography Office/outpatient Visit, Est Eye Exam & Treatment Advance Directives Directive Yes / No Effective Date File Name No Information Encounters Encounter Description Practice Location Reason(s) For Visit Diagnoses Date Provider Providers Copied on Encounter [facility], [address], [place], [place], [id number], [place] tel:[phone] [facility] No Information Oct-2 5-201 0 Maulik Ynig. [address] [place], [address], [place]. tel:[phone] Referring Provider: Stepan Alonso, [address] [place], [address]. tel:[phone] [facility], [address], [place], [place], [id number], [place] tel:[phone] [facility] No Information Umair-1 4-201 0 Maulik Ying. [address] [place], [address], [place]. tel:[phone] Referring Provider: Stepan Alonso, [address] [place], [address]. tel:[phone] [facility], [address], [place], [place], [id number], [place] tel:[phone] [facility] No Information May-0 3-201 0 Maulik Ying. [address] [place], [address], [place]. tel:[phone] Referring Provider: Stepan Alonso, [address] [place], [address]. tel:[phone] [facility], [address], [place], [place], [id number], [place] tel:[phone] [facility] No Information Apr-0 5-201 0 Maulik Ying. [address] [place], [address], [place]. tel:[phone] [facility], [address], [place], [place], [address], [place] tel:[phone] [facility] No Information Mar-0 8-201 0 Mualik Ying. [address] [place], [address], [place]. tel:[phone] [facility], [address], [place], [place], [id number], [place] tel:[phone] [facility] No Information 201 0 Maulik [address] [place], [address], [place]. tel:[phone] Referring Provider: Stepan Alonso, [address] [place] [address], [facility]. tel:[phone] [facility], [address] [place] [address] [address], [place], [place], [id number], [place] tel:[phone] [facility] No Information 0 Maulik Ying. [address] [place], [address], [place]. tel:[phone] Referring Provider: Stepan Alonso, [address] [place] [address], [facility]. tel:[phone] Office Consultation [facility], [id number] [place] [address] [address], [place], [place], [id number], [place] tel:[phone] [facility] No Information 4-200 9 Maulik Ying[address] [place], [address], [place]. tel:[phone] Referring Provider: Katarzyna Snow, [address], [place], [place], [facility]. tel:[phone] Office/outpati ent Visit, [facility], [id number] [place] [address] [address], [place], [place], [id number], [place] tel:[phone] [facility] No Information Nov-2 7-200 9 Steph Colón. [address] , [address], [place], [address], [place]. tel:[phone] [facility], [address], [place], [place], [id number], [place] tel:[phone] [facility] No Information 200 8 Steph Colón. [address] , [address], [place], [address], [place]. tel:[phone] Family History Family Member Type Diagnosis Age At Onset No Information Payers Payer name Insurance type Covered constitution party ID Authoriza tion(s) No Information Social History Type Description Quantity Date Captured Comments Sex Male Smoking Status No Information Chief Complaint And Reason For Visit No Information Reason For Referral Reason For Referral No Information History Of Present Illness Encounter Date Complaint History Of Prese nt Illness No Information Functional Status Date Functional Assessmen t No Information Instructions Date Instruction Additional Infor mation No Information Assessments Type Assessment Date No Information Patient Care Teams Name Effective Dates (start - stop) Status Members No Information
--- OUTSIDE RECORDS SUMMARY | 2024-07-07 16:30 | XMS_ITS | Encounter Summary ---
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
--- NOTE | 2024-07-07 16:31 | ADMGEN ---
This patient, Deric Buck, was admitted to IMU Room 206-02 at approximately 1630. Patient/family oriented to hospital policies and general routines including ID bracelet, bed and alarms, visiting hours, pain management, procedures, bathroom and other care routines, personal items, smoking policy, room service/diet, and visiting hours. Information on how to activate the Rapid Response Team has been discussed. Patient/Family are encouraged to report perceived risks to care and to ask questions if they do not understand what they are told or what they should do.
--- NOTE | 2024-07-07 18:00 | ECG_ITS ---
Test Date: 2024-07-07 18:00:02 Measurements Intervals [place] Rate: 56 P: 15 HI: 207 QRS: 22 QRSD: 147 T: 140 QT: 449 QTc: 435 Interpretive Statements SINUS BRADYCARDIA WITH SINUS ARRHYTHMIA INTRAVENTRICULAR CONDUCTION DELAY [130+ ms QRS DURATION] INFERIOR MYOCARDIAL INFARCTION [40+ ms Q WAVE AND/OR ST/T ABNORMALITY IN II/aVF], PROBABLY OLD ST AND T WWAVE ABNORMALITY IN THE LATERAL LEADS, OCNSIDER ISCHEMIA Compared to ECG 07/07/2024 11:45:57 No significant changes Electronically Signed On 07-08-2024 11:49:53 CDT by Jenny Cespedes M.D.
[2024-07-07 18:08] LABS: Glucose Point of Care 131 mg/dl (65-105)
[2024-07-07 18:40] LABS: Troponin I 0.205 ng/mL (0.000-0.034)
[2024-07-07] MEDS: FUROSEMIDE INJ 40 MG/4 ML VIAL 20 MG IV PUSH (20:19)
[2024-07-07] MEDS: SACUBITRIL/VALSARTAN 49-51 MG TABLET 1 TABLET PO (20:19)
[2024-07-07 20:21] LABS: Glucose Point of Care 149 mg/dl (65-105)
[2024-07-08] VITALS (27 sets, daily range): BP systolic 136–163; BP diastolic 5–107; PULSE 47–71; RESP 15–24; TEMP 36.4–36.9; O2SAT 92–98; BMI 32.3
--- NOTE | 2024-07-08 03:41 | PM.EVENT ---
Event Note Event Note Event Note: Nurse called in regards to Bradycardia. Holding Nebivolol.
[2024-07-08 04:16] LABS: Basophils Percent Auto 0.7 % (0.2-1.2); Eosinophils Absolute Auto 0.1 K/mm3 (0-0.3); Eosinophils Percent Auto 1.9 % (0-4.4); Hematocrit 43.5 % (42.0-52.0); Hemoglobin 13.6 g/dL (14.0-18.0); Immature Granulocyte Absolute 0.01 K/mm3 (0.00-0.031); Immature Granulocyte Percent A 0.2 % (0-0.5); Lymphocytes Absolute Auto 0.98 K/mm3 (0.9-3.2); Lymphocytes Percent Auto 17.2 % (18.3-44.2); Mean Corpuscular HGB Conc 31.3 g/dl (32-36); Mean Corpuscular Hemoglobin 29.9 pg (26-34); Mean Corpuscular Volume 95.6 fl (80-100); Mean Platelet Volume 11.3 fl (7.4-10.4); Monocytes Absolute Auto 0.8 K/mm3 (0.1-0.6); Monocytes Percent Auto 14.7 % (2.6-8.5); Neutrophils Absolute Auto 3.7 K/mm3 (1.3-6.7); Neutrophils Percent Auto 65.3 % (45.5-73.1); Platelet Count Result 151 k/mm3 (150-375); Red Blood Count 4.55 M/mm3 (4.6-6.20); Red Cell Distribution Width 14.2 % (11.5-14.5); White Blood Count 5.7 K/mm3 (4.5-10.0)
[2024-07-08 04:31] LABS: Anion Gap 11 mmol/L (4-12); Blood Urea Nitrogen 15 mg/dL (9-20); Calcium 9.2 mg/dL (8.4-10.2); Carbon Dioxide 27 mmol/L (22-30); Chloride 105 mmol/L (98-107); Estimated CRCL calculation 84 ml/min; Estimated Glomerular Filt Rate > 60; Glucose 92 mg/dL (65-110); Potassium 3.1 mmol/L (3.4-5.0); Sodium 143 mmol/L (137-145)
[2024-07-08] MEDS: ENOXAPARIN 120 MG/0.8 ML SYRINGE 106 MG SUB-Q (05:39)
[2024-07-08 07:57] LABS: Glucose Point of Care 99 mg/dl (65-105)
[2024-07-08] MEDS: FUROSEMIDE INJ 40 MG/4 ML VIAL 20 MG IV PUSH (09:01)
[2024-07-08] MEDS: prednisoLONE ACETATE 1% OPHTH 5 ML 1 DROP LEFT EYE ×3 (09:03→18:29)
[2024-07-08] MEDS: KETOROLAC 0.5% OP SOLN 5 ML BOTTLE 1 DROP LEFT EYE ×3 (09:03→18:29)
[2024-07-08 11:48] LABS: Glucose Point of Care 102 mg/dl (65-105)
--- NOTE | 2024-07-08 11:56 | P.CONCA_ITS ---
Assessment and Plan Assessment and plan (1) Acute on chronic diastolic heart failure: Code(s): I50.33 - Acute on chronic diastolic (congestive) heart failure Status: Acute (2) CAD (coronary artery disease): Code(s): I25.10 - Atherosclerotic heart disease of [place] coronary artery without angina pectoris Status: Acute (3) Old myocardial infarction: Code(s): I25.2 - Old myocardial infarction Status: Acute (4) Presence of coronary angioplasty implant and graft: Code(s): Z95.5 - Presence of coronary angioplasty implant and graft Status: Acute (5) Pure hypercholesterolemia, unspecified: Code(s): E78.00 - Pure hypercholesterolemia, unspecified Status: Acute (6) Elevated troponin: Code(s): R79.89 - Other specified abnormal findings of blood chemistry Status: Acute Plan Problem list: -Acute on chronic diastolic heart failure -Worsening shortness of breath over the past 3-4 days -CAD, PR in 1995 status post POBA, 3 stents subsequently at other times -ACS: elevated troponin without chest pain but patient never had chest pain prior to his PR are before his other stents; acute worsening shortness of breath could be anginal equivalent -History of PE -Hypertension -Hypokalemia with potassium was 3.1 Plan: -Cardiac catheterization to further evaluate coronaries given elevated troponin, acute worsening of shortness of breath which could be anginal equivalent. Risks and benefits of cardiac catheterization and possible PCI were discussed in great detail with patient and is willing to proceed -Continue aspirin, statin, BB -Continue Entresto and empagliflozin at home dose -Check and replace electrolytes to keep potassium greater than 4 and magnesium greater than 2 -Monitor daily weights, ins and outs. Monitor renal function daily History of Present Illness History of Present Illness Consult date/time: 07/08/24 11:56 Reason For Visit: CHF/Elevated Troponin Narrative: 73-year-old male with history of CAD status post 3 stents (patient unable to tell me where the stents are located), history of PR many years ago, PE, gout, former tobacco use, GERD, hypertension presents with chief complaint of shortness of breath that is been worsening over the past few months. Over the past 3-4 days the shortness of breath has gotten really worse and he came into the hospital. He also reports swelling in both his legs. Troponin is mildly elevated and peaked at 0.205, BNP is elevated to 5300, and chest x-ray showed pulmonary vascular congestion. Cardiology is consulted for further recommendations for management of acute on chronic heart failure. Patient denies any chest pain. He states that he never had chest pain at the time of his PR or prior to the other stents. No palpitations, dizziness, lightheadedness, presyncope, syncope, orthopnea, PND. He states that he had an PR in 1995 at which time balloon angioplasty was performed. He did not get a stent at that time. Subsequently he states that he got 3 coronary stents but he is unable to tell me the location of his stents. Workup: Potassium: 3.1 Troponin: 0.107--0.177--0.205--0.190 BNP: 5300 Chest x-ray: Pulmonary vascular congestion TTE in 2022: EF of 60%, diastolic dysfunction stage I, hypokinesis basal inferior and mid inferior sanchez Review of Systems 2 Review of Systems: A complete review of systems was performed and negative other than those mentioned in the HPI. [facility] Past Medical History Medical History Pulmonary embolus Abnormal colonoscopy 05/14 Polyps Idiopathic gout, right wrist Former tobacco use GERD (gastroesophageal reflux disease) Coronary artery disease Hypertension Surgical History Surgical History History of lumbar laminectomy 01/15 L3-L5 History of total left hip arthroplasty 09/12 History of percutaneous coronary intervention Family History Family History Father Acute myocardial infarction Mother Diabetes mellitus Social History Social History Smoking packs per day: 1.5 Smoking cigarettes per day: 30.0 Years smoked: 40 Smoking pack-years: 60.00 Smoking status: Former smoker Tobacco type: cigarettes Smokeless tobacco user: chewing tobacco Second hand tobacco smoke exposure: No Smoking end date: 06/28/18 Alcohol intake: current Drinks per week: 14 Alcohol use details: 2 drinks per day Substance use: never Substance use type: marijuana Other substance usage details: GUMMIES 1-2 TIMES A MONTH Last use: 10/20/21 Do You Feel Safe in your Home?: Yes Lack of Transportation: No Lack of Food: Never True Current Housing: I Have Housing Concerned About Future Housing: No Difficulty Paying Gas/Electric Bills: No Difficulty Paying for Meds: No Currently Unemployed: No Education: High School Diploma/GED Difficulty w/ Childcare or Family Care: No Living arrangements: with family Occupation/Education: retired Gender identity (if verbalized by the patient): Male Sexual Orientation (if Verbalized by the Patient): Straight or Heterosexual Spiritual care concerns: No Agree to blood products: Yes Meds Home Medications and Allergies Home Medications Medication Instructions Recorded Confirmed Type aspirin 81 mg tablet 81 mg PO DAILY 04/16/21 07/07/24 History blood sugar diagnostic (Accu-Chek #100 ea 07/23/23 07/07/24 Rx Guide test strips) nebivolol 20 mg tablet 20 mg PO DAILY #90 tabs 02/03/24 07/07/24 Rx metformin 500 mg tablet,extended 500 mg PO BID #180 tabs 03/09/24 07/07/24 Rx release 24 hr lancets (Accu-Chek Softclix #100 ea 04/09/24 07/07/24 Rx Lancets) sacubitril 49 mg-valsartan 51 mg 1 tablet PO BID #180 tabs 04/30/24 07/07/24 Rx tablet (Entresto) rosuvastatin 40 mg tablet 40 mg PO DAILY #90 tabs 06/15/24 07/07/24 Rx pantoprazole 40 mg tablet,delayed See Rx Instructions .Route 06/16/24 07/07/24 Rx release .COMPLEX #90 tabs empagliflozin 10 mg tablet 10 mg PO DAILY 07/07/24 07/07/24 History (Jardiance) ketorolac 0.5 % eye drops 1 drp LEFT EYE TID 07/07/24 07/07/24 History meloxicam 15 mg tablet 15 mg PO DAILY PRN pain 07/07/24 07/07/24 History prednisolone acetate 1 % eye 1 drp LEFT EYE TID 07/07/24 07/07/24 History drops,suspension Allergies Allergy/AdvReac Type Severity Reaction Status Date / Time No Known Allergies Allergy Verified 07/07/24 16:34 Vital Signs Vital Signs - 24 hr 07/07/24 16:10 07/07/24 17:47 07/07/24 18:00 Temperature Pulse Rate 63 89 Respiratory Rate 18 Blood Pressure 147/94 H Pulse Oximetry 95 Oxygen Delivery Room Air 07/07/24 20:00 07/07/24 20:00 07/07/24 22:00 Temperature 36.4 C Pulse Rate 70 77 61 Respiratory Rate 18 Blood Pressure 155/88 H Pulse Oximetry 93 Oxygen Delivery 07/07/24 23:27 07/08/24 00:00 07/08/24 00:00 Temperature 36.8 C Pulse Rate 79 51 L Respiratory Rate 18 Blood Pressure 156/80 H Pulse Oximetry 96 Oxygen Delivery Room Air 07/08/24 02:00 07/08/24 04:00 07/08/24 04:00 Temperature Pulse Rate 47 L 50 L Respiratory Rate Blood Pressure Pulse Oximetry Oxygen Delivery Room Air 07/08/24 04:00 07/08/24 06:00 07/08/24 08:00 Temperature 36.4 C L 36.7 C Pulse Rate 60 49 L 59 L Respiratory Rate 16 18 Blood Pressure 149/81 H 157/87 H Pulse Oximetry 94 93 Oxygen Delivery 07/08/24 08:00 07/08/24 10:00 07/08/24 11:40 Temperature 36.8 C Pulse Rate 50 L 60 59 L Respiratory Rate 20 Blood Pressure 151/83 H Pulse Oximetry 94 Oxygen Delivery Exam 2 Narrative: General: Alert oriented x3, no acute distress Neck: Supple, no JVD Chest: Bilaterally clear to auscultation, no rales or rhonchi Cardiac: S1, S2 +, regular rate, regular rhythm, no murmurs or rubs Extremities: No pedal edema, no skin rash Neurologic: Alert and oriented x3, no focal neurological deficits Results Labs and Meds 07/08/24 04:00 07/08/24 04:00 Lab results: Cardiac Enzymes 07/07/24 07/07/24 07/07/24 Range/Units 12:33 15:03 18:05 AST 34 (17-59) U/L Troponin I 0.107 H* 0.177 H* D 0.205 H* (0.000-0.034) ng/mL 07/08/24 Range/Units 04:00 AST (17-59) U/L Troponin I 0.190 H* (0.000-0.034) ng/mL Coagulation 07/07/24 Range/Units 12:33 PT 14.6 (11.1-14.7) Seconds APTT 27.8 (22.3-36.8) Seconds CBC 07/07/24 07/08/24 Range/Units 12:33 04:00 WBC 7.6 5.7 (4.5-10.0) K/mm3 RBC 4.42 L 4.55 L (4.6-6.20) M/mm3 Hgb 13.4 L 13.6 L (14.0-18.0) g/dL Hct 42.1 43.5 (42.0-52.0) % Plt Count 157 151 (150-375) k/mm3 Lymph # (Auto) 0.70 L 0.98 (0.9-3.2) K/mm3 [place] # (Auto) 0.7 H 0.8 H (0.1-0.6) K/mm3 Eos # (Auto) 0.0 0.1 (0-0.3) K/mm3 Baso # (Auto) 0.0 0.0 (0.0-0.1) K/mm3 Comprehensive Metabolic Panel 07/07/24 07/08/24 Range/Units 12:33 04:00 Sodium 144 143 (137-145) mmol/L Potassium 3.6 3.1 L (3.4-5.0) mmol/L Chloride 110 H 105 (98-107) mmol/L Carbon Dioxide 24 27 (22-30) mmol/L BUN 14 D 15 (9-20) mg/dL Creatinine 0.71 0.80 (0.7-1.3) mg/dL Glucose 85 92 (65-110) mg/dL Calcium 9.3 9.2 (8.4-10.2) mg/dL AST 34 (17-59) U/L ALT 32 (6-50) U/L Alkaline Phosphatase 44 (38-126) U/L Total Protein 7.0 (6.3-8.2) g/dL Albumin 4.1 (3.5-5.1) g/dL Intake and Output 07/07/24 07/08/24 07/08/24 23:59 07:59 15:59 Intake Total 480 540 Output Total 3050 425 1650 Balance -2570 115 -1650 Intake: Oral 480 540 Output: Urine 3050 425 1650 Other: # Unmeasured Voids 2 Patient Weight 07/08/24 23:59 Weight 102.4 kg
[2024-07-08] MEDS: ASPIRIN 81 MG CHEWABLE TABLET PO (12:25)
--- NOTE | 2024-07-08 14:50 | WPDHPUPDATE1 ---
History and Physical Update Update Date/Time: 07/08/24 12:50 History and Physical has been reviewed, including an updated exam of the patient. There are NO changes in the patient's condition. Risks, benefits, and alternatives have been discussed and questions answered. Patient agrees to proceed with procedure.
--- NOTE | 2024-07-08 14:51 | WPDMODSED ---
Moderate Sedation Note-Pt Data Patient Data Diagnosis: Moderate sedation assessment performed in this morning at 8am. Daignosis: NSTEMI, acute on chronic heart failure, Known CAD s/p 3 stents in the past Allergies Allergy/AdvReac Type Severity Reaction Status Date / Time No Known Allergies Allergy Verified 07/07/24 16:34 Home Medications Medication Instructions Recorded Confirmed Type aspirin 81 mg tablet 81 mg PO DAILY 04/16/21 07/07/24 History blood sugar diagnostic (Accu-Chek #100 ea 07/23/23 07/07/24 Rx Guide test strips) nebivolol 20 mg tablet 20 mg PO DAILY #90 tabs 02/03/24 07/07/24 Rx metformin 500 mg tablet,extended 500 mg PO BID #180 tabs 03/09/24 07/07/24 Rx release 24 hr lancets (Accu-Chek Softclix #100 ea 04/09/24 07/07/24 Rx Lancets) sacubitril 49 mg-valsartan 51 mg 1 tablet PO BID #180 tabs 04/30/24 07/07/24 Rx tablet (Entresto) rosuvastatin 40 mg tablet 40 mg PO DAILY #90 tabs 06/15/24 07/07/24 Rx pantoprazole 40 mg tablet,delayed See Rx Instructions .Route 06/16/24 07/07/24 Rx release .COMPLEX #90 tabs empagliflozin 10 mg tablet 10 mg PO DAILY 07/07/24 07/07/24 History (Jardiance) ketorolac 0.5 % eye drops 1 drp LEFT EYE TID 07/07/24 07/07/24 History meloxicam 15 mg tablet 15 mg PO DAILY PRN pain 07/07/24 07/07/24 History prednisolone acetate 1 % eye 1 drp LEFT EYE TID 07/07/24 07/07/24 History drops,suspension Current Medications: Active Medications Acetaminophen (Acetaminophen 325 Mg Tablet) 650 mg PO Q4H PRN PRN Reason: Mild Pain (1-3) or Fever Hydrocodone Bitart/Acetaminophen (Hydrocodone/Acetaminophen (*Crx) 5-325 Mg Tablet) 1 tab PO Q4H PRN PRN Reason: Moderate Pain (4-6) Aspirin (Aspirin 81 Mg Chewable Tablet) 81 mg PO DAILY@0800 JUAN CARLOS Last Admin: 07/08/24 12:25 Dose: 81 mg Dextrose (Dextrose 50% 25 Gm/50 Ml Syringe) 12.5 gm IV PUSH PRN PRN; Protocol PRN Reason: Hypoglycemia Docusate Sodium (Docusate Sodium 100 Mg Capsule) 100 mg PO BID [facility] Last Admin: 07/08/24 12:52 Dose: Not Given Empagliflozin (Empagliflozin 10 Mg Tablet) 10 mg PO DAILY [facility] Enoxaparin Sodium (Enoxaparin 120 Mg/0.8 Ml Syringe) 106 mg SUB-Q Q12H JUAN CARLOS Last Admin: 07/08/24 05:39 Dose: 106 mg Furosemide (Furosemide Inj 40 Mg/4 Ml Vial) 20 mg IV PUSH Q12HR JUAN CARLOS Last Admin: 07/08/24 09:01 Dose: 20 mg Glucagon (Glucagon For Inj 1 Mg Vial) 1 mg IM PRN PRN; Protocol PRN Reason: Hypoglycemia Glucose (Glucose Oral Gel 15 Gm Of Glucse In 37.5 Gm Tube) 15 gm PO PRN PRN; Protocol PRN Reason: Hypoglycemia Heparin Sodium (Porcine) (Heparin Sodium 5,000 Units/Ml Vial) 0 units IV PUSH PRN PRN PRN Reason: aPTT less than 55 seconds Heparin Sodium (Porcine) (Heparin Sodium 5,000 Units/Ml Vial) 0 units IV PUSH PRN PRN PRN Reason: aPTT 55 - 70 seconds Dextrose (Dextrose 5% 1,000 Ml) 1,000 mls @ 100 mls/hr IVPB PRN PRN; Protocol PRN Reason: Hypoglycemia Sodium Chloride (Normal Saline Iv) 1,000 mls @ 125 mls/hr IV CONT .Q8H ONE Stop: 07/08/24 22:48 Heparin Sodium/Dextrose (Heparin Sodium/D5w 100 Units/Ml) 25,000 units in 250 mls @ 12.288 mls/hr IV CONT .[id number] JUAN CARLOS; Protocol Insulin Aspart (Insulin Aspart (*Bkc) 100 Units/Ml) 2 - 5 units SUB-Q TIDWM JUAN CARLOS; Protocol Last Admin: 07/08/24 11:48 Dose: Not Given Insulin Aspart (Insulin Aspart (*Bkc) 100 Units/Ml) 1 - 2 units SUB-Q HS JUAN CARLOS; Protocol Last Admin: 07/07/24 20:20 Dose: Not Given Ketorolac Tromethamine (Ketorolac 0.5% Op Soln 5 Ml Bottle) 1 drop LEFT EYE TID JUAN CARLOS Last Admin: 07/08/24 09:03 Dose: 1 drop Miscellaneous Information (Pharmacist Communication Order) 1 each XX ONCE ONE Stop: 07/08/24 14:51 Perflutren Lipid Microsphere (Perflutren Lipid Microspheres 1.5 Ml Vial Diluted To 10 Ml Total Volume) 0 ml IV PUSH ONCE PRN; Protocol PRN Reason: adequate visualization Stop: 07/10/24 16:26 Prednisolone Acetate (Prednisolone Acetate 1% Ophth 5 Ml) 1 drop LEFT EYE TID [facility] Last Admin: 07/08/24 09:03 Dose: 1 drop Rosuvastatin Calcium (Rosuvastatin 20 Mg Tablet) 40 mg PO DAILY [facility] Sacubitril/Valsartan (Sacubitril/Valsartan 49-51 Mg Tablet) 1 tablet PO Q12HR [facility] Last Admin: 07/07/24 20:19 Dose: 1 tablet Sedation/Anesthesia: No previous sedation/anesthesia problems (including family history). [facility] Past Medical History Medical History Pulmonary embolus Abnormal colonoscopy 05/14 Polyps Idiopathic gout, right wrist Former tobacco use GERD (gastroesophageal reflux disease) Coronary artery disease Hypertension Surgical History Surgical History History of lumbar laminectomy 01/15 L3-L5 History of total left hip arthroplasty 09/12 History of percutaneous coronary intervention Family History Family History Father Acute myocardial infarction Mother Diabetes mellitus Social History Social History Smoking packs per day: 1.5 Smoking cigarettes per day: 30.0 Years smoked: 40 Smoking pack-years: 60.00 Smoking status: Former smoker Tobacco type: cigarettes Smokeless tobacco user: chewing tobacco Second hand tobacco smoke exposure: No Smoking end date: 06/28/18 Alcohol intake: current Drinks per week: 14 Alcohol use details: 2 drinks per day Substance use: never Substance use type: marijuana Other substance usage details: GUMMIES 1-2 TIMES A MONTH Last use: 10/20/21 Do You Feel Safe in your Home?: Yes Lack of Transportation: No Lack of Food: Never True Current Housing: I Have Housing Concerned About Future Housing: No Difficulty Paying Gas/Electric Bills: No Difficulty Paying for Meds: No Currently Unemployed: No Education: High School Diploma/GED Difficulty w/ Childcare or Family Care: No Living arrangements: with family Occupation/Education: retired Gender identity (if verbalized by the patient): Male Sexual Orientation (if Verbalized by the Patient): Straight or Heterosexual Spiritual care concerns: No Agree to blood products: Yes Mod Sed Physical Exam Physical Exam Pre Procedural Exam: Normal: Appearance, Lungs, Heart Size, Heart Rate and Heart Rhythm Hours since solid foods: 12 Hours since liquid intake: 12 Mallampati Classification: class III Internal Medicine - PN: Obj Da Vital Signs Vital Signs: Vital Signs - 24 hr 07/07/24 16:10 07/07/24 17:47 07/07/24 18:00 Temperature Pulse Rate 63 89 Pulse Rate [Bilateral Radial Palpation] Respiratory Rate 18 Blood Pressure 147/94 H Pulse Oximetry 95 Oxygen Delivery Room Air 07/07/24 20:00 07/07/24 20:00 07/07/24 22:00 Temperature 36.4 C Pulse Rate 70 77 61 Pulse Rate [Bilateral Radial Palpation] Respiratory Rate 18 Blood Pressure 155/88 H Pulse Oximetry 93 Oxygen Delivery 07/07/24 23:27 07/08/24 00:00 07/08/24 00:00 Temperature 36.8 C Pulse Rate 79 51 L Pulse Rate [Bilateral Radial Palpation] Respiratory Rate 18 Blood Pressure 156/80 H Pulse Oximetry 96 Oxygen Delivery Room Air 07/08/24 02:00 07/08/24 04:00 07/08/24 04:00 Temperature Pulse Rate 47 L 50 L Pulse Rate [Bilateral Radial Palpation] Respiratory Rate Blood Pressure Pulse Oximetry Oxygen Delivery Room Air 07/08/24 04:00 07/08/24 06:00 07/08/24 08:00 Temperature 36.4 C L 36.7 C Pulse Rate 60 49 L 59 L Pulse Rate [Bilateral Radial Palpation] Respiratory Rate 16 18 Blood Pressure 149/81 H 157/87 H Pulse Oximetry 94 93 Oxygen Delivery 07/08/24 08:00 07/08/24 10:00 07/08/24 11:40 Temperature 36.8 C Pulse Rate 50 L 60 59 L Pulse Rate [Bilateral Radial Palpation] Respiratory Rate 20 Blood Pressure 151/83 H Pulse Oximetry 94 Oxygen Delivery 07/08/24 12:00 07/08/24 14:00 07/08/24 14:07 Temperature Pulse Rate 55 L 53 L Pulse Rate [Bilateral Radial Palpation] 53 L Respiratory Rate 19 Blood Pressure 146/5 H Pulse Oximetry 92 Oxygen Delivery Room Air 07/08/24 14:15 07/08/24 14:15 07/08/24 14:30 Temperature Pulse Rate 52 L Pulse Rate [Bilateral Radial Palpation] 53 L 52 L Respiratory Rate 15 Blood Pressure 146/105 H Pulse Oximetry 95 Oxygen Delivery Room Air 07/08/24 14:30 07/08/24 14:45 07/08/24 14:45 Temperature Pulse Rate 53 L 52 L Pulse Rate [Bilateral Radial Palpation] 52 L Respiratory Rate 21 H 16 Blood Pressure 163/83 H 156/85 H Pulse Oximetry 95 97 Oxygen Delivery Room Air Room Air Intake/Output Intake/Output: Intake & Output 07/05/24 07/06/24 07/07/24 07/08/24 23:59 23:59 23:59 23:59 Intake Total 480 540 Output Total 3051 5779 Balance -9052 -3757 Meds/Results Medications: Active Medications Generic Name Dose Route Start Last Admin Trade Name Freq PRN Reason Stop Dose Admin Acetaminophen 650 mg 07/07/24 14:59 Acetaminophen 325 Mg Tablet PO Q4H PRN Mild Pain (1-3) or Fever Hydrocodone Bitart/Acetaminophen 1 tab 07/07/24 16:20 Hydrocodone/Acetaminophen (*Crx) 5-325 Mg Tablet PO Q4H PRN Moderate Pain (4-6) Aspirin 81 mg 07/08/24 08:00 07/08/24 12:25 Aspirin 81 Mg Chewable Tablet PO 81 mg DAILY@0800 JUAN CARLOS Administration Dextrose 12.5 gm 07/07/24 16:24 Dextrose 50% 25 Gm/50 Ml Syringe IV PUSH PRN PRN Hypoglycemia Protocol Docusate Sodium 100 mg 07/07/24 17:00 07/08/24 12:52 Docusate Sodium 100 Mg Capsule PO Not Given BID JUAN CAROLS Empagliflozin 10 mg 07/08/24 09:00 Empagliflozin 10 Mg Tablet PO DAILY JUAN CARLOS Enoxaparin Sodium 106 mg 07/08/24 06:00 07/08/24 05:39 Enoxaparin 120 Mg/0.8 Ml Syringe SUB-Q 106 mg Q12H JUAN CARLOS Administration Furosemide 20 mg 07/07/24 21:00 07/08/24 09:01 Furosemide Inj 40 Mg/4 Ml Vial IV PUSH 20 mg Q12HR JUAN CARLOS Administration Glucagon 1 mg 07/07/24 16:24 Glucagon For Inj 1 Mg Vial IM PRN PRN Hypoglycemia Protocol Glucose 15 gm 07/07/24 16:24 Glucose Oral Gel 15 Gm Of Glucse In 37.5 Gm Tube PO PRN PRN Hypoglycemia Protocol Heparin Sodium (Porcine) 0 units 07/08/24 14:50 Heparin Sodium 5,000 Units/Ml Vial IV PUSH PRN PRN aPTT less than 55 seconds Heparin Sodium (Porcine) 0 units 07/08/24 14:50 Heparin Sodium 5,000 Units/Ml Vial IV PUSH PRN PRN aPTT 55 - 70 seconds Dextrose 1,000 mls @ 100 mls/hr 07/07/24 16:24 Dextrose 5% 1,000 Ml IVPB PRN PRN Hypoglycemia Protocol Sodium Chloride 1,000 mls @ 125 mls/hr 07/08/24 14:49 Normal Saline Iv IV CONT 07/08/24 22:48 .Q8H ONE Heparin Sodium/Dextrose 25,000 units in 250 mls @ 12.288 mls/hr 07/08/24 14:50 Heparin Sodium/D5w 100 Units/Ml IV CONT .[id number] JUAN CARLOS Protocol 12 UNITS/KG/HR Insulin Aspart 2 - 5 units 07/07/24 17:00 07/08/24 11:48 Insulin Aspart (*Bkc) 100 Units/Ml SUB-Q Not Given TIDWM [facility] Protocol Insulin Aspart 1 - 2 units 07/07/24 21:00 07/07/24 20:20 Insulin Aspart (*Bkc) 100 Units/Ml SUB-Q Not Given HS [facility] Protocol Ketorolac Tromethamine 1 drop 07/08/24 09:00 07/08/24 09:03 Ketorolac 0.5% Op Soln 5 Ml Bottle LEFT EYE 1 drop TID JUAN CARLOS Administration Miscellaneous Information 1 each 07/08/24 14:50 Pharmacist Communication Order XX 07/08/24 14:51 ONCE ONE Perflutren Lipid Microsphere 0 ml 07/07/24 16:25 Perflutren Lipid Microspheres 1.5 Ml Vial Diluted To 10 Ml Total Volume IV PUSH 07/10/24 16:26 ONCE PRN adequate visualization Protocol Prednisolone Acetate 1 drop 07/08/24 09:00 07/08/24 09:03 Prednisolone Acetate 1% Ophth 5 Ml LEFT EYE 1 drop TID JUAN CARLOS Administration Rosuvastatin Calcium 40 mg 07/08/24 09:00 Rosuvastatin 20 Mg Tablet PO DAILY JUAN CARLOS Sacubitril/Valsartan 1 tablet 07/07/24 21:00 07/07/24 20:19 Sacubitril/Valsartan 49-51 Mg Tablet PO 1 tablet Q12HR JUAN CARLOS Administration Radiology Results: ITS Impressions Chest X-Ray 07/07/24 12:28 IMPRESSION: 1. Scattered linear and interstitial opacities in the bilateral mid and lower lung zones likely combination of atelectasis and mild pulmonary edema versus less likely pneumonia. Labs 07/08/24 04:00 07/08/24 04:00 Labs: Laboratory Results - last 24 hr 07/07/24 07/07/24 07/07/24 15:03 18:04 18:05 WBC RBC Hgb Hct MCV MCH MCHC RDW Plt Count MPV Immature Gran % (Auto) Neut % (Auto) Lymph % (Auto) [place] % (Auto) Eos % (Auto) Baso % (Auto) Lymph # (Auto) [place] # (Auto) Eos # (Auto) Baso # (Auto) Abs Immat Gran (auto) Absolute Neuts (auto) Absolute Nucleated RBC Nucleated RBC % Sodium Potassium Chloride Carbon Dioxide Anion Gap BUN Creatinine Estim Creat Clear Calc Estimated GFR Glucose POC Capillary Glucose 131 H Calcium Troponin I 0.177 H* D 0.205 H* 07/07/24 07/08/24 07/08/24 20:17 04:00 07:51 WBC 5.7 RBC 4.55 L Hgb 13.6 L Hct 43.5 MCV 95.6 MCH 29.9 MCHC 31.3 L RDW 14.2 Plt Count 151 MPV 11.3 H Immature Gran % (Auto) 0.2 Neut % (Auto) 65.3 Lymph % (Auto) 17.2 L [place] % (Auto) 14.7 H Eos % (Auto) 1.9 Baso % (Auto) 0.7 Lymph # (Auto) 0.98 [place] # (Auto) 0.8 H Eos # (Auto) 0.1 Baso # (Auto) 0.0 Abs Immat Gran (auto) 0.01 Absolute Neuts (auto) 3.7 Absolute Nucleated RBC 0.000 Nucleated RBC % 0.0 Sodium 143 Potassium 3.1 L Chloride 105 Carbon Dioxide 27 Anion Gap 11 BUN 15 Creatinine 0.80 Estim Creat Clear Calc 84 Estimated GFR > 60 Glucose 92 POC Capillary Glucose 149 H 99 Calcium 9.2 Troponin I 0.190 H* 07/08/24 11:20 WBC RBC Hgb Hct MCV MCH MCHC RDW Plt Count MPV Immature Gran % (Auto) Neut % (Auto) Lymph % (Auto) [place] % (Auto) Eos % (Auto) Baso % (Auto) Lymph # (Auto) [place] # (Auto) Eos # (Auto) Baso # (Auto) Abs Immat Gran (auto) Absolute Neuts (auto) Absolute Nucleated RBC Nucleated RBC % Sodium Potassium Chloride Carbon Dioxide Anion Gap BUN Creatinine Estim Creat Clear Calc Estimated GFR Glucose POC Capillary Glucose 102 Calcium Troponin I ASA Classification/Sedation ASA Classification/Sedation ASA Class: III Emergent: No Risks: Risks, benefits and alternatives explained and patient/family accepted plan for sedation. Patient re-evaluated immediately prior to sedation.
--- NOTE | 2024-07-08 14:54 | WPDCARDPROC ---
Cardiac Cath Procedure Note Date of procedure:: 07/08/24 Performing physician:: Garima Orozco MD Indication:: CATHETERIZATION LABORATORY REPORT Anesthesia: Versed and Fentanyl were ordered and given in my presence at 1:25 p.m., procedure ended at 1:45 p.m.. Supervision of nurse monitored moderate sedation with Versed and Fentanyl was provided for 20 minutes. Dose: Fentanyl: 100 mcg Versed: 1 mg Pre-op Diagnosis: NSTEMI Post-op Diagnosis: NSTEMI Obstructive MV CAD of RCA, LAD, and LCX Procedure(s): Left heart catheterization with coronary angiography Right radial access Access Site: Right radial artery Brief History and Clinical Indications: 73-year-old male with history of CAD status post 3 stents the past, history of IN in 1995 status post POBA, PE, gout, former tobacco use, GERD, hypertension presented with chief complaints of acutely worsening shortness of breath the past 3-4 days. Troponin and BNP elevated. Chest x-ray shows pulmonary vascular congestion. No chest pain but patient never had chest pain during his IN are prior stents. Given shortness of breath is an anginal equivalent patient recommended for cardiac catheterization and possible PCI. All risks, benefits and alternatives to left heart catheterization with or without percutaneous coronary intervention was discussed at length with the patient. Risk of complications including but not limited to bleeding, infection, arrhythmia, stroke, worsening kidney function, blood loss, groin hematoma, limb loss, emergency coronary artery bypass grafting, and even were discussed with the patient and all questions were answered. The patient understood and wished to proceed. Time out called, patient name, date of , medical record number, allergies, procedure performed, identify Slasher Sawyer, patient and staff member concurred with accurate data, procedure carried on. Findings: LEFT HEART CATHETERIZATION FINDINGS: 1. Left main: The left main coronary artery is widely patent without any significant obstructive disease. 2. Left anterior descending: The LAD is a large wrap-around vessel with 40% calcific stenosis in proximal LAD, diffuse 70% calcific stenosis in the mid LAD. The LAD is beyond the stenosis supplies a very large myocardium. There is a large 1st diagonal with 70% stenosis. 3. Left circumflex: The proximal left circumflex artery has calcific subtotal occlusion. The OM1 takes off proximal to the subtotal occlusion. It is a moderate-sized vessel with 60% stenosis. There is a large bifurcating OM2 beyond the subtotal occlusion which appears to fill mostly by left to left collaterals. 4. Right coronary artery: The RCA is the dominant vessel. The RCA is diffusely diseased with calcific 90% stenosis in the proximal RCA, calcific 90% stenosis in the mid RCA, calcific 99% stenosis in the distal RCA just prior to the bifurcation. The RPL is a [employer] in the proximal portion. The RPDA has diffuse disease 5. Left ventricle: A. End-diastolic pressure 16 mmHg. B. LV gram deferred. C. No significant gradient across aortic valve on catheter pullback. 6. Opening AO pressure 148/81/111 and closing AO pressure 144/89/115 mm Hg Description of Procedure: Informed consent signed and placed in the chart. Patient transferred to paving and surfacing labourer room. Prepped and draped in usual sterile fashion. 2% lidocaine injected subcutaneously in right wrist area. 22-gauge venipuncture catheter used to access the right radial artery with the Seldinger technique. 6-FR slender sheath placed in right radial artery. Nitroglycerin 200mcg was given intraarterial through the sheath. Heparin was not given as patient tolerates heart therapeutic Lovenox this morning. 5 Stateless JL 3.5 diagnostic catheter engaged Left Main Coronary Artery. 5 Stateless JR4 diagnostic catheter engaged Right Coronary Artery. Multiple orthogonal angiogram obtained and reviewed 5 Stateless JR4 diagnostic catheter crossed aortic valve to obtain LVEDP, LV angiogram deferred. Hemostasis was achieved by TR band. Assessment: 73-year-old male with -NSTEMI -Obstructive multivessel CAD including 70% diffuse stenosis of mid LAD, 99% subtotal occlusion of proximal LCX, 90% stenosis of proximal RCA, 90% stenosis of mid RCA, 99% stenosis of distal RCA just before the bifurcation, CT0 of RPLA. Large OM2 fills by [id number] collaterals and RPLA fills by [id number] collaterals. -Acute on chronic diastolic heart failure Post Operative Condition: Stable No significant blood loss Disposition: Floor Plan: Given multivessel calcific obstructive CAD recommend CT surgery consult for CABG evaluation. Transfer initiated to [facility] for CT surgery consult. Have discussed the case with Dr. Salcido at [facility] Continue aspirin 81 mg daily. Continue statin. No 2nd antiplatelet agent as patient will be going for CABG. Continue anticoagulation with heparin. TR band removal per protocol. IV fluids-1 L of normal saline at 100 mL/hour. Check renal function in a.m.. The above findings were discussed with the referring physician. Continue aggressive medical therapy and risk factor modification. A discussed the results of the cardiac catheterization and management plan with patient, his , and his daughter and answered all their questions. They are in agreement with the plan.
--- NOTE | 2024-07-08 15:11 | P.PNIM_ITS ---
Progress Note: A&P Assessment and Plan (1) CHF (congestive heart failure): Code(s): I50.9 - Heart failure, unspecified Status: Acute Assessment and Plan: Cardiology consulted Pulmonary edema seen on chest x-ray IV Lasix Entresto Fluid restriction Dietitian (2) Elevated troponin: Code(s): R79.89 - Other specified abnormal findings of blood chemistry Status: Acute Assessment and Plan: ACS Interventional cardiology consulted Cardiac catheterization showed three-vessel disease. Plan to transfer for ocular surgery evaluation Therapeutic Lovenox EKG p.r.n. for chest pain Telemetry monitoring Heart healthy diet (3) Hypertension: Code(s): I10 - Essential (primary) hypertension Status: Acute Assessment and Plan: Continue antihypertensives (4) Type 2 diabetes mellitus: Code(s): E11.9 - Type 2 diabetes mellitus without complications Status: Acute Assessment and Plan: Diabetic diet Accu-Cheks a.c. HS SSI Continue Jardiance due to cardiac protective factors Hold home metformin Subjective Date/time seen: 07/08/24 15:11 Interval history: per HPI: 73-year-old male past medical history of hypertension, CAD, gout, pulmonary embolism presents to the hospital with shortness of breath increasing over last week. Patient states that he has no known history of CHF. Patient states that he sleeps on a raised bed. He states due to severe increased shortness of breath today he presented to the hospital. He denies cough, fever chills. Lab work in the ED shows anemia at 13.4, troponin of 0.177, BNP of 5300, chest x-ray shows Scattered linear and interstitial opacities in the bilateral mid and lower lung zones likely combination of atelectasis and mild pulmonary edema versus less likely pneumonia. Patient was given Lasix in the ED an aspirin with weight based Lovenox. 07/08/24 Patient was seen and examined at bedside. He is feeling better. Breathing is better. Underwent cardiac catheterization today. Reported 3 vessels disease and needs to transfer for vascular surgery evaluation. Review of Systems Review of Systems: 12 systems were reviewed and are negativ e except for as per HPI. Exam Narrative: General: well appearing, appears stated age. HEENT: normocephalic, atraumatic. Mucous membranes moist. EOMI, PERRLA, bilateral sclera anicteric, no conjunctival injection. Neck supple without JVD, lymphadenopathy, or bruit. Respiratory: clear to ascultation bilaterally. No rales/rhonic/wheezes. Cardiovascular: Regular rate and rhythm, normal S1-S2 upon ascultation. No murmurs, rubs, or clicks. PMI is nondisplaced, capillary refill less than 3 second. Abdomen: Soft, round, no pulsatile masses, nondistended and nontender. No rebound, no guarding. No CVA tenderness, no hepatosplenomegaly. Bowel sounds present to all four quadrants. No high pitch or tinkling sounds, resonant to pe rcussion. Extremities: No cyanosis, clubbing, or edema present. Pulses are palpable 2/2. Active ROM to all four extremities. Neuro: Alert and orientated x 4. PERRLA. Cranial nerves 2-12 intact without focal deficit. Skin: Warm, dry, and intact, without rash, erythema, or lesion. Psych: pleasant, cooperative, normal speech, normal affect, no hallucinations, no dysarthia Objective Data Vital Signs Vital Signs: Vital Signs - 24 hr 07/07/24 16:10 07/07/24 17:47 07/07/24 18:00 Temperature Pulse Rate 63 89 Pulse Rate [Bilateral Radial Palpation] Respiratory Rate 18 Blood Pressure 147/94 H Pulse Oximetry 95 Oxygen Delivery Room Air 07/07/24 20:00 07/07/24 20:00 07/07/24 22:00 Temperature 97.6 F Pulse Rate 70 77 61 Pulse Rate [Bilateral Radial Palpation] Respiratory Rate 18 Blood Pressure 155/88 H Pulse Oximetry 93 Oxygen Delivery 07/07/24 23:27 07/08/24 00:00 07/08/24 00:00 Temperature 98.2 F Pulse Rate 79 51 L Pulse Rate [Bilateral Radial Palpation] Respiratory Rate 18 Blood Pressure 156/80 H Pulse Oximetry 96 Oxygen Delivery Room Air 07/08/24 02:00 07/08/24 04:00 07/08/24 04:00 Temperature Pulse Rate 47 L 50 L Pulse Rate [Bilateral Radial Palpation] Respiratory Rate Blood Pressure Pulse Oximetry Oxygen Delivery Room Air 07/08/24 04:00 07/08/24 06:00 07/08/24 08:00 Temperature 97.5 F L 98.1 F Pulse Rate 60 49 L 59 L Pulse Rate [Bilateral Radial Palpation] Respiratory Rate 16 18 Blood Pressure 149/81 H 157/87 H Pulse Oximetry 94 93 Oxygen Delivery 07/08/24 08:00 07/08/24 10:00 07/08/24 11:40 Temperature 98.3 F Pulse Rate 50 L 60 59 L Pulse Rate [Bilateral Radial Palpation] Respiratory Rate 20 Blood Pressure 151/83 H Pulse Oximetry 94 Oxygen Delivery 07/08/24 12:00 07/08/24 14:00 07/08/24 14:07 Temperature Pulse Rate 55 L 53 L Pulse Rate [Bilateral Radial Palpation] 53 L Respiratory Rate 19 Blood Pressure 146/5 H Pulse Oximetry 92 Oxygen Delivery Room Air 07/08/24 14:15 07/08/24 14:15 07/08/24 14:30 Temperature Pulse Rate 52 L Pulse Rate [Bilateral Radial Palpation] 53 L 52 L Respiratory Rate 15 Blood Pressure 146/105 H Pulse Oximetry 95 Oxygen Delivery Room Air 07/08/24 14:30 07/08/24 14:45 07/08/24 14:45 Temperature Pulse Rate 53 L 52 L Pulse Rate [Bilateral Radial Palpation] 52 L Respiratory Rate 21 H 16 Blood Pressure 163/83 H 156/85 H Pulse Oximetry 95 97 Oxygen Delivery Room Air Room Air 07/08/24 14:50 07/08/24 14:50 07/08/24 15:00 Temperature Pulse Rate 52 L Pulse Rate [Bilateral Radial Palpation] 52 L 52 L Respiratory Rate 20 Blood Pressure 155/82 H Pulse Oximetry 98 Oxygen Delivery Room Air 07/08/24 15:00 Temperature Pulse Rate 52 L Pulse Rate [Bilateral Radial Palpation] Respiratory Rate 15 Blood Pressure 163/87 H Pulse Oximetry 98 Oxygen Delivery Room Air Intake/Output Intake/Output: Intake & Output 07/05/24 07/06/24 07/07/24 07/08/24 23:59 23:59 23:59 23:59 Intake Total 480 540 Output Total 2593 2237 Balance -3272 -2917 Meds/Results Medications: Active Medications Generic Name Dose Route Start Last Admin Trade Name Freq PRN Reason Stop Dose Admin Acetaminophen 650 mg 07/07/24 14:59 Acetaminophen 325 Mg Tablet PO Q4H PRN Mild Pain (1-3) or Fever Hydrocodone Bitart/Acetaminophen 1 tab 07/07/24 16:20 Hydrocodone/Acetaminophen (*Crx) 5-325 Mg Tablet PO Q4H PRN Moderate Pain (4-6) Aspirin 81 mg 07/08/24 08:00 07/08/24 12:25 Aspirin 81 Mg Chewable Tablet PO 81 mg DAILY@0800 JUAN CARLOS Administration Dextrose 12.5 gm 07/07/24 16:24 Dextrose 50% 25 Gm/50 Ml Syringe IV PUSH PRN PRN Hypoglycemia Protocol Docusate Sodium 100 mg 07/07/24 17:00 07/08/24 12:52 Docusate Sodium 100 Mg Capsule PO Not Given BID JUAN CARLOS Empagliflozin 10 mg 07/08/24 09:00 Empagliflozin 10 Mg Tablet PO DAILY JUAN CARLOS Furosemide 20 mg 07/07/24 21:00 07/08/24 09:01 Furosemide Inj 40 Mg/4 Ml Vial IV PUSH 20 mg Q12HR JUAN CARLOS Administration Glucagon 1 mg 07/07/24 16:24 Glucagon For Inj 1 Mg Vial IM PRN PRN Hypoglycemia Protocol Glucose 15 gm 07/07/24 16:24 Glucose Oral Gel 15 Gm Of Glucse In 37.5 Gm Tube PO PRN PRN Hypoglycemia Protocol Heparin Sodium (Porcine) 4,000 units 07/08/24 14:50 Heparin Sodium 5,000 Units/Ml Vial IV PUSH PRN PRN aPTT less than 55 seconds Heparin Sodium (Porcine) 3,500 units 07/08/24 14:50 Heparin Sodium 5,000 Units/Ml Vial IV PUSH PRN PRN aPTT 55 - 70 seconds Dextrose 1,000 mls @ 100 mls/hr 07/07/24 16:24 Dextrose 5% 1,000 Ml IVPB PRN PRN Hypoglycemia Protocol Sodium Chloride 1,000 mls @ 125 mls/hr 07/08/24 14:49 Normal Saline Iv IV CONT 07/08/24 22:48 .Q8H ONE Heparin Sodium/Dextrose 25,000 units in 250 mls @ 10 mls/hr 07/08/24 14:50 Heparin Sodium/D5w 100 Units/Ml IV CONT .Q24H JUAN CARLOS Protocol 1,000 UNITS/HR Insulin Aspart 2 - 5 units 07/07/24 17:00 07/08/24 11:48 Insulin Aspart (*Bkc) 100 Units/Ml SUB-Q Not Given TIDWM JUAN CARLOS Protocol Insulin Aspart 1 - 2 units 07/07/24 21:00 07/07/24 20:20 Insulin Aspart (*Bkc) 100 Units/Ml SUB-Q Not Given HS JUAN CARLOS Protocol Ketorolac Tromethamine 1 drop 07/08/24 09:00 07/08/24 09:03 Ketorolac 0.5% Op Soln 5 Ml Bottle LEFT EYE 1 drop TID JUAN CARLOS Administration Perflutren Lipid Microsphere 0 ml 07/07/24 16:25 Perflutren Lipid Microspheres 1.5 Ml Vial Diluted To 10 Ml Total Volume IV PUSH 07/10/24 16:26 ONCE PRN adequate visualization Protocol Prednisolone Acetate 1 drop 07/08/24 09:00 07/08/24 09:03 Prednisolone Acetate 1% Ophth 5 Ml LEFT EYE 1 drop TID JUAN CARLOS Administration Rosuvastatin Calcium 40 mg 07/08/24 09:00 Rosuvastatin 20 Mg Tablet PO DAILY JUAN CARLOS Sacubitril/Valsartan 1 tablet 07/07/24 21:00 07/07/24 20:19 Sacubitril/Valsartan 49-51 Mg Tablet PO 1 tablet Q12HR JUAN CARLOS Administration Radiology Results: ITS Impressions Chest X-Ray 07/07/24 12:28 IMPRESSION: 1. Scattered linear and interstitial opacities in the bilateral mid and lower lung zones likely combination of atelectasis and mild pulmonary edema versus less likely pneumonia. Labs Labs: Laboratory Results - last 24 hr 07/07/24 07/07/24 07/07/24 15:03 18:04 18:05 WBC RBC Hgb Hct MCV MCH MCHC RDW Plt Count MPV Immature Gran % (Auto) Neut % (Auto) Lymph % (Auto) Armstrong % (Auto) Eos % (Auto) Baso % (Auto) Lymph # (Auto) Armstrong # (Auto) Eos # (Auto) Baso # (Auto) Abs Immat Gran (auto) Absolute Neuts (auto) Absolute Nucleated RBC Nucleated RBC % Sodium Potassium Chloride Carbon Dioxide Anion Gap BUN Creatinine Estim Creat Clear Calc Estimated GFR Glucose POC Capillary Glucose 131 H Calcium Troponin I 0.177 H* D 0.205 H* 07/07/24 07/08/24 07/08/24 20:17 04:00 07:51 WBC 5.7 RBC 4.55 L Hgb 13.6 L Hct 43.5 MCV 95.6 MCH 29.9 MCHC 31.3 L RDW 14.2 Plt Count 151 MPV 11.3 H Immature Gran % (Auto) 0.2 Neut % (Auto) 65.3 Lymph % (Auto) 17.2 L Armstrong % (Auto) 14.7 H Eos % (Auto) 1.9 Baso % (Auto) 0.7 Lymph # (Auto) 0.98 Armstrong # (Auto) 0.8 H Eos # (Auto) 0.1 Baso # (Auto) 0.0 Abs Immat Gran (auto) 0.01 Absolute Neuts (auto) 3.7 Absolute Nucleated RBC 0.000 Nucleated RBC % 0.0 Sodium 143 Potassium 3.1 L Chloride 105 Carbon Dioxide 27 Anion Gap 11 BUN 15 Creatinine 0.80 Estim Creat Clear Calc 84 Estimated GFR > 60 Glucose 92 POC Capillary Glucose 149 H 99 Calcium 9.2 Troponin I 0.190 H* 07/08/24 11:20 WBC RBC Hgb Hct MCV MCH MCHC RDW Plt Count MPV Immature Gran % (Auto) Neut % (Auto) Lymph % (Auto) Armstrong % (Auto) Eos % (Auto) Baso % (Auto) Lymph # (Auto) Armstrong # (Auto) Eos # (Auto) Baso # (Auto) Abs Immat Gran (auto) Absolute Neuts (auto) Absolute Nucleated RBC Nucleated RBC % Sodium Potassium Chloride Carbon Dioxide Anion Gap BUN Creatinine Estim Creat Clear Calc Estimated GFR Glucose POC Capillary Glucose 102 Calcium Troponin I Quality VTE Prophylaxis VTE prophylaxis: mechanical ordered and pharmacologic ordered
[2024-07-08] MEDS: SODIUM CHLORIDE 0.9% IV 1,000 ML 125 ML IV CONT (15:26)
--- NOTE | 2024-07-08 18:43 | P.TS_ITS ---
Transfer Discharge Sum: Prov Provider Date of admission: 07/08/24 09:50 Primary care physician: Efraín Mckeon MD Admitting clinician: Kacy Walton MD Consults: 07/07/24 15:01 Consult to Physician Routine Comment: Consulting Provider: Jenny Cespedes Reason for consultation: SHORTNESS OF BREATH, ELEVATED TROPONIN Has provider been notified: Yes 07/07/24 16:26 Consult to Physician Routine Comment: Called exchange and notified them of consult Consulting Provider: Royce Faith public health dentist/MD group to consult: Cardiology Reason for consultation: Pulmonary edema Has provider been notified: Yes 07/07/24 21:55 Consult to Dietitian Routine Reason for Consult:: Recommendations for CHF diet Attending physician on discharge: Milton June Anticipated date of transfer: 07/08/24 Receiving physician/facility: [facility] DS: Admitting Diagnosis Discharge Date 07/08/24 Admitting Diagnosis NSTEMI, CAD DS: Discharge Diagnosis Discharge Diagnosis (1) CHF (congestive heart failure): Code(s): I50.9 - Heart failure, unspecified Status: Acute Assessment and Plan: Cardiology consulted Pulmonary edema seen on chest x-ray IV Lasix Entresto Fluid restriction Dietitian (2) Elevated troponin: Code(s): R79.89 - Other specified abnormal findings of blood chemistry Status: Acute Assessment and Plan: ACS Interventional cardiology consulted Cardiac catheterization showed three-vessel disease. Plan to transfer for CTS surgery evaluation Therapeutic Lovenox EKG p.r.n. for chest pain Telemetry monitoring Heart healthy diet (3) Hypertension: Code(s): I10 - Essential (primary) hypertension Status: Acute Assessment and Plan: Continue antihypertensives (4) Type 2 diabetes mellitus: Code(s): E11.9 - Type 2 diabetes mellitus without complications Status: Acute Assessment and Plan: Diabetic diet Accu-Cheks a.cPj HS SSI Continue Jardiance due to cardiac protective factors Hold home metformin Transfer Discharge Sum: Med Medications Active and Home Medications: Home Medications aspirin 81 mg tablet 81 mg PO DAILY 04/16/21 [History Confirmed 07/07/24] blood sugar diagnostic (Accu-Chek Guide test strips) #100 ea 07/23/23 [Rx Confirmed 07/07/24] nebivolol 20 mg tablet 20 mg PO DAILY #90 tabs 02/03/24 [Rx Confirmed 07/07/24] metformin 500 mg tablet,extended release 24 hr 500 mg PO BID #180 tabs 03/09/24 [Rx Confirmed 07/07/24] lancets (Accu-Chek Softclix Lancets) #100 ea 04/09/24 [Rx Confirmed 07/07/24] sacubitril 49 mg-valsartan 51 mg tablet (Entresto) 1 tablet PO BID #180 tabs 04/30/24 [Rx Confirmed 07/07/24] rosuvastatin 40 mg tablet 40 mg PO DAILY #90 tabs 06/15/24 [Rx Confirmed 07/07/24] pantoprazole 40 mg tablet,delayed release See Rx Instructions .Route .COMPLEX #90 tabs 06/16/24 [Rx Confirmed 07/07/24] empagliflozin 10 mg tablet (Jardiance) 10 mg PO DAILY 07/07/24 [History Confirmed 07/07/24] ketorolac 0.5 % eye drops 1 drp LEFT EYE TID 07/07/24 [History Confirmed 07/07/24] meloxicam 15 mg tablet 15 mg PO DAILY PRN pain 07/07/24 [History Confirmed 07/07/24] prednisolone acetate 1 % eye drops,suspension 1 drp LEFT EYE TID 07/07/24 [History Confirmed 07/07/24] Active Medications Acetaminophen (Acetaminophen 325 Mg Tablet) 650 mg PO Q4H PRN PRN Reason: Mild Pain (1-3) or Fever Hydrocodone Bitart/Acetaminophen (Hydrocodone/Acetaminophen (*Crx) 5-325 Mg Tablet) 1 tab PO Q4H PRN PRN Reason: Moderate Pain (4-6) Aspirin (Aspirin 81 Mg Chewable Tablet) 81 mg PO DAILY@0800 [facility] Last Admin: 07/08/24 12:25 Dose: 81 mg Dextrose (Dextrose 50% 25 Gm/50 Ml Syringe) 12.5 gm IV PUSH PRN PRN; Protocol PRN Reason: Hypoglycemia Docusate Sodium (Docusate Sodium 100 Mg Capsule) 100 mg PO BID [facility] Last Admin: 07/08/24 18:28 Dose: Not Given Empagliflozin (Empagliflozin 10 Mg Tablet) 10 mg PO DAILY [facility] Last Admin: 07/08/24 18:27 Dose: Not Given Furosemide (Furosemide Inj 40 Mg/4 Ml Vial) 20 mg IV PUSH Q12HR [facility] Last Admin: 07/08/24 09:01 Dose: 20 mg Glucagon (Glucagon For Inj 1 Mg Vial) 1 mg IM PRN PRN; Protocol PRN Reason: Hypoglycemia Glucose (Glucose Oral Gel 15 Gm Of Glucse In 37.5 Gm Tube) 15 gm PO PRN PRN; Protocol PRN Reason: Hypoglycemia Heparin Sodium (Porcine) (Heparin Sodium 5,000 Units/Ml Vial) 4,000 units IV PUSH PRN PRN PRN Reason: aPTT less than 55 seconds Heparin Sodium (Porcine) (Heparin Sodium 5,000 Units/Ml Vial) 3,500 units IV PUSH PRN PRN PRN Reason: aPTT 55 - 70 seconds Dextrose (Dextrose 5% 1,000 Ml) 1,000 mls @ 100 mls/hr IVPB PRN PRN; Protocol PRN Reason: Hypoglycemia Sodium Chloride (Normal Saline Iv) 1,000 mls @ 125 mls/hr IV CONT .Q8H ONE Stop: 07/08/24 22:48 Last Admin: 07/08/24 15:26 Dose: 125 mls/hr Heparin Sodium/Dextrose (Heparin Sodium/D5w 100 Units/Ml) 25,000 units in 250 mls @ 10 mls/hr IV CONT .Q24H JUAN CARLOS; Protocol Insulin Aspart (Insulin Aspart (*Bkc) 100 Units/Ml) 2 - 5 units SUB-Q TIDWM JUAN CARLOS; Protocol Last Admin: 07/08/24 18:28 Dose: Not Given Insulin Aspart (Insulin Aspart (*Bkc) 100 Units/Ml) 1 - 2 units SUB-Q HS JUAN CARLOS; Protocol Last Admin: 07/07/24 20:20 Dose: Not Given Ketorolac Tromethamine (Ketorolac 0.5% Op Soln 5 Ml Bottle) 1 drop LEFT EYE TID [facility] Last Admin: 07/08/24 18:29 Dose: 1 drop Pantoprazole Sodium (Pantoprazole 40 Mg Tablet) 40 mg PO HS JUAN CARLOS Perflutren Lipid Microsphere (Perflutren Lipid Microspheres 1.5 Ml Vial Diluted To 10 Ml Total Volume) 0 ml IV PUSH ONCE PRN; Protocol PRN Reason: adequate visualization Stop: 07/10/24 16:26 Prednisolone Acetate (Prednisolone Acetate 1% Ophth 5 Ml) 1 drop LEFT EYE TID [facility] Last Admin: 07/08/24 18:29 Dose: 1 drop Rosuvastatin Calcium (Rosuvastatin 20 Mg Tablet) 40 mg PO DAILY [facility] Last Admin: 07/08/24 18:27 Dose: Not Given Sacubitril/Valsartan (Sacubitril/Valsartan 49-51 Mg Tablet) 1 tablet PO Q12HR [facility] Last Admin: 07/08/24 18:27 Dose: Not Given Transfer Discharge Sum: Hosp Hospital Course Hospital course: per HPI: 73-year-old male past medical history of hypertension, CAD, gout, pulmonary embolism presents to the hospital with shortness of breath increasing over last week. Patient states that he has no known history of CHF. Patient states that he sleeps on a raised bed. He states due to severe increased shortness of breath today he presented to the hospital. He denies cough, fever chills. Lab work in the ED shows anemia at 13.4, troponin of 0.177, BNP of 5300, chest x-ray shows Scattered linear and interstitial opacities in the bilateral mid and lower lung zones likely combination of atelectasis and mild pulmonary edema versus less likely pneumonia. Patient was given Lasix in the ED an aspirin with weight based Lovenox. 07/08/24 Patient was seen and examined at bedside. He is feeling better. Breathing is better. Underwent cardiac catheterization today. Reported 3 vessels disease and needs to transfer for vascular surgery evaluation.transfer to [facility]. Cardiac Cath: Obstructive multivessel CAD including 70% diffuse stenosis of mid LAD, 99% subtotal occlusion of proximal LCX, 90% stenosis of proximal RCA, 90% stenosis of mid RCA, 99% stenosis of distal RCA just before the bifurcation, CT0 of RPLA. Large OM2 fills by [id number] collaterals and RPLA fills by [id number] col lateral Time Spent with Patient Time attestation: Total time spent providing and/or coordinating transfer services: Total time spent: Greater than 30 minutes Exam Narrative: General: well appearing, appears stated age. HEENT: normocephalic, atraumatic. Mucous membranes moist. EOMI, PERRLA, bilateral sclera anicteric, no conjunctival injection. Neck supple without JVD, lymphadenopathy, or bruit. Respiratory: clear to ascultation bilaterally. No rales/rhonic/wheezes. Cardiovascular: Regular rate and rhythm, normal S1-S2 upon ascultation. No murmurs, rubs, or clicks. PMI is nondisplaced, capillary refill less than 3 second. Abdomen: Soft, round, no pulsatile masses, nondistended and nontender. No rebound, no guarding. No CVA tenderness, no hepatosplenomegaly. Bowel sounds present to all four quadrants. No high pitch or tinkling sounds, resonant to percussion. Extremities: No cyanosis, clubbing, or edema present. Pulses are palpable 2/2. Active ROM to all four extremities. Neuro: Alert and orientated x 4. PERRLA. Cranial nerves 2-12 intact without focal deficit. Skin: Warm, dry, and intact, without rash, erythema, or lesion. Psych: pleasant, cooperative, normal speech, normal affect, no hallucinations, no dysarthia DS: Data Data Completed and Pending Labs on day of discharge: Labs from last 24 hours 07/08/24 07/08/24 07/08/24 11:20 07:51 04:00 WBC 5.7 RBC 4.55 L Hgb 13.6 L Hct 43.5 MCV 95.6 MCH 29.9 MCHC 31.3 L RDW 14.2 Plt Count 151 MPV 11.3 H Immature Gran % (Auto) 0.2 Neut % (Auto) 65.3 Lymph % (Auto) 17.2 L Spink % (Auto) 14.7 H Eos % (Auto) 1.9 Baso % (Auto) 0.7 Lymph # (Auto) 0.98 Spink # (Auto) 0.8 H Eos # (Auto) 0.1 Baso # (Auto) 0.0 Abs Immat Gran (auto) 0.01 Absolute Neuts (auto) 3.7 Absolute Nucleated RBC 0.000 Nucleated RBC % 0.0 Sodium 143 Potassium 3.1 L Chloride 105 Carbon Dioxide 27 Anion Gap 11 BUN 15 Creatinine 0.80 Estim Creat Clear Calc 84 Estimated GFR > 60 Glucose 92 POC Capillary Glucose 102 99 Calcium 9.2 Troponin I 0.190 H* 07/07/24 20:17 WBC RBC Hgb Hct MCV MCH MCHC RDW Plt Count MPV Immature Gran % (Auto) Neut % (Auto) Lymph % (Auto) Spink % (Auto) Eos % (Auto) Baso % (Auto) Lymph # (Auto) Spink # (Auto) Eos # (Auto) Baso # (Auto) Abs Immat Gran (auto) Absolute Neuts (auto) Absolute Nucleated RBC Nucleated RBC % Sodium Potassium Chloride Carbon Dioxide Anion Gap BUN Creatinine Estim Creat Clear Calc Estimated GFR Glucose POC Capillary Glucose 149 H Calcium Troponin I
== END 2024-07-08 19:15 | disposition short-term general hospital (02) | DRG 280 ==
LOC: ANHED 15:04 → ANHIMU 16:28
PROVIDERS: Internal Medicine Interventional Cardiology; Nurse Practitioner Gerontology; Admitting Provider Internal Medicine; Emergency Provider Emergency Medicine; PCP Family Medicine Adolescent Medicine; Visit Provider Internal Medicine
PROC: 4A023N7 Measurement of Cardiac Sampling and Pressure, Left Heart, Percutaneous Approach (ICD-10-PCS; CPT 93452; principal; 2024-07-08 13:00)
DX: I21.4 Non-ST elevation (NSTEMI) myocardial infarction (principal); I50.33 Acute on chronic diastolic (congestive) heart failure; J98.11 Atelectasis; I11.0 Hypertensive heart disease with heart failure; E11.9 Type 2 diabetes mellitus without complications; E78.5 Hyperlipidemia, unspecified; I25.10 Atherosclerotic heart disease of native coronary artery without angina pectoris; K21.9 Gastro-esophageal reflux disease without esophagitis; E78.00 Pure hypercholesterolemia, unspecified; D64.9 Anemia, unspecified; E87.6 Hypokalemia; Z96.642 Presence of left artificial hip joint; Z87.891 Personal history of nicotine dependence; Z95.5 Presence of coronary angioplasty implant and graft; Z79.82 Long term (current) use of aspirin; Z86.711 Personal history of pulmonary embolism; I25.2 Old myocardial infarction
CPT/HCPCS: 36415; 71045; 80048; 80053; 82948; 83735; 83880; 84484; 85025; 85610; 85730; 93005; 93458; 96372; 96374; 96375; 96376; 99285; A9270; C1769; C1887; C1894; G0378; J1644; J1650; J1938; J2003; J2250; J2305; J3010; J7030; J7040

== ENCOUNTER 2025-01-18 10:00 | Outpatient (RCR) | payer MEDICARE, SELFPAY | END 2025-01-18 11:10 | disposition home or self-care (01) | LOC: ANHCPREHAB 10:00 | PROVIDERS: PCP Nurse Practitioner Family; Visit Provider Internal Medicine Cardiovascular Disease | DX: Z95.1 Presence of aortocoronary bypass graft (principal) | CPT/HCPCS: 93798 ==

== ENCOUNTER 2025-01-29 13:00 | Outpatient (CLI) | payer MEDICARE, SELFPAY ==
--- NOTE | ~2025-01-29 | CT_ITS ---
EXAMINATION: CT lung screening DATE: 01/29/2025 13:15 INDICATION: Personal history of nicotine dependence TECHNIQUE: Computed tomography (CT) of the chest was performed without intravenous contrast. The dose-length product was 163.17 mGy-cm. Automated exposure control and iterative reconstruction technique were employed. COMPARISON: CT dated 06/26/2023 and 04/17/2022 FINDINGS: No thoracic lymphadenopathy. Borderline heart size. No significant pleural or pericardial effusion. There is atherosclerosis of the aorta and coronary arteries. There is a large 6.2 cm left renal cyst. Elevated left diaphragm. There is lingular atelectasis. Stable 6 mm left lower lobe nodule. No new pulmonary nodules or masses. No acute osseous abnormality. IMPRESSION: 1. Lung-RADS category 2: Benign appearance or behavior. Continue annual screening with noncontrast low-dose chest CT in 12 months. Reviewed, dictated and finalized at location I. [employer] IMPRESSION: 1. Lung-RADS category 2: Benign appearance or behavior. Continue annual screeni ng with noncontrast low-dose chest CT in 12 months.
== END 2025-01-29 13:01 | disposition home or self-care (01) ==
PROVIDERS: PCP Nurse Practitioner Family; Visit Provider Nurse Practitioner Family
DX: Z12.2 Encounter for screening for malignant neoplasm of respiratory organs (principal); Z87.891 Personal history of nicotine dependence
CPT/HCPCS: 71271